=== PATIENT | male | born 1950 | race Caucasian/White ===

== ENCOUNTER 2019-06-08 19:23 | Emergency (ER) | payer MEDICARE, OTHER ==
[~2019-06-08] VITALS: Ht 170.1 cm; Wt 90.0 kg
--- NOTE | 2019-06-08 20:14 | ED General ---
General Chief Complaint: Neurological Problems Stated Complaint: GEN WEAKNESS Nursing Triage Note: PT. REPORTED HE HAS HAD WEAKNESS SINCE THIS AM. STATED HE WAS UNABLE TO WALK. PT. HAS HAD A CVA IN THE PAST. PT. HEART RATE WAS 46. BS WAS 119. PT WAS INCONTINENT OF URINE UPON ARRIVAL BY EMS. RUST PROTOCOL NEG. AT THIS TIME. PT LIVES ALONE AND IS VERY UNKEPT. HE HAD FECAL MATTER ON HIS HANDS. Nursing Sepsis Screen: No Definite Risk History of Present Illness Date Seen by Provider: Jun 08, 2019 Time Seen by Provider: 19:45 Initial Comments Patient is here with generalized weakness was even unable to get up to the bathroom today and urinated on himself called EMS to bring him in lives alone his '[facility] in the [facility] has had any problems over the last few days but today woke up and was profoundly weak no fever no chills no cough that is out of the normal he does relate that several months back he fell at [employer] and hit his head and never had a evaluation and wondered if that could be a problem. Denies any chest pain denies any nausea vomiting diarrhea or constipation. He does seem to have very poor hygiene and had stool on his hands. Timing/Duration: 24 Hours Severity: Mild Associated Systoms: No Chest Pain, No Cough; Malaise; No Nausea/Vomiting, No Shortness of Air; Weakness Allergies and Home Medications Allergies Coded Allergies: No Known Drug Allergies (Unverified , 06/08/19) Patient Home Medication List Home Medication List Reviewed: Yes Review of Systems Review of Systems Constitutional: No chills, No dizziness, No fever; weakness EENTM: No blurred vision, No vision loss Respiratory: No cough, No short of breath Cardiovascular: No chest pain, No palpitations Gastrointestinal: No abdominal pain, No nausea, No vomiting Genitourinary: No dysuria, No frequency Musculoskeletal: No joint swelling, No muscle pain; muscle weakness Skin: No lesions, No rash Psychiatric/Neurological: Denies Numbness, Denies Tingling; Weakness Past Cnpfcyt-Ozbrsa-Iberiq Hx Past Med/Social Hx: Reviewed Nursing Past Med/Soc Hx Patient Social History Recent Foreign Travel: No Contact w/Someone Who Travel: No Recent Infectious Disease Expo: No Recent Hopitalizations: No Physical Abuse: No Sexual Abuse: No Mistreated: No Fear: No Seasonal Allergies Seasonal Allergies: No Past Medical History Surgeries: Yes Amputation Respiratory: No Cardiac: No Neurological: Yes TIA Genitourinary: No Gastrointestinal: No Musculoskeletal: Yes (HX OF BACK PAIN) Amputee Endocrine: No HEENT: No Cancer: No Psychosocial: No Integumentary: No Blood Disorders: No Physical Exam Vital Signs Vital Signs - First Documented 06/08/19 19:34 Temp 35.7 Pulse 53 Resp 16 B/P (MAP) 183/78 (113) Pulse Ox 97 O2 Delivery Room Air Capillary Refill : Less Than 3 Seconds Height, Weight, BMI Height: '" Weight: lbs. oz. kg; 31.00 BMI Method: General Appearance: No Apparent Distress, WD/WN, Other (he does seem somewhat lethargic and falls asleep during the questioning. 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.) Neurologic/Psychiatric: Oriented x3; No Facial Droop; Motor Weakness; No Sensory Deficit; Other (somewhat lethargic.) Skin: Normal Color, Warm/Dry Progress/Results/Core Measures Suspected Sepsis Recent Fever Within 48 Hours: No Infection Criteria Present: None New/Unexplained Altered Menta: No Sepsis Screen: No Definite Risk SIRS Temperature: Pulse: 53 Respiratory Rate: 16 Laboratory Tests 06/08/19 21:02: White Blood Count 11.1H Blood Pressure 183 /78 Mean: 113 Laboratory Tests 06/08/19 21:02: Creatinine 0.76, Platelet Count 275, Total Bilirubin 0.5 Results/Orders Lab Results Laboratory Tests Test 06/08/19 21:02 06/08/19 21:46 Range/Units White Blood Count 11.1 H 4.3-11.0 10^3/uL Red Blood Count 4.91 4.35-5.85 10^6/uL Hemoglobin 14.8 13.3-17.7 G/DL Hematocrit 45 40-54 % Mean Corpuscular Volume 93 80-99 FL Mean Corpuscular Hemoglobin 30 25-34 PG Mean Corpuscular Hemoglobin Concent 33 32-36 G/DL Red Cell Distribution Width 13.2 10.0-14.5 % Platelet Count 275 130-400 10^3/uL Mean Platelet Volume 9.9 7.4-10.4 FL Neutrophils (%) (Auto) 91 H 42-75 % Lymphocytes (%) (Auto) 5 L 12-44 % Monocytes (%) (Auto) 4 0-12 % Eosinophils (%) (Auto) 0 0-10 % Basophils (%) (Auto) 0 0-10 % Neutrophils # (Auto) 10.1 H 1.8-7.8 X 10^3 Lymphocytes # (Auto) 0.5 L 1.0-4.0 X 10^3 Monocytes # (Auto) 0.4 0.0-1.0 X 10^3 Eosinophils # (Auto) 0.0 0.0-0.3 10^3/uL Basophils # (Auto) 0.0 0.0-0.1 10^3/uL Neutrophils % (Manual) 85 % Lymphocytes % (Manual) 9 % Monocytes % (Manual) 4 % Eosinophils % (Manual) 0 % Basophils % (Manual) 0 % Band Neutrophils 2 % Sodium Level 138 135-145 MMOL/L Potassium Level 4.5 3.6-5.0 MMOL/L Chloride Level 100 98-107 MMOL/L Carbon Dioxide Level 26 21-32 MMOL/L Anion Gap 12 5-14 MMOL/L Blood Urea Nitrogen 14 7-18 MG/DL Creatinine 0.76 0.60-1.30 MG/DL Estimat Glomerular Filtration Rate > 60 BUN/Creatinine Ratio 18 Glucose Level 116 H 70-105 MG/DL Calcium Level 9.5 8.5-10.1 MG/DL Corrected Calcium 9.7 8.5-10.1 MG/DL Total Bilirubin 0.5 0.1-1.0 MG/DL Aspartate Amino Transf (AST/SGOT) 12 5-34 U/L Alanine Aminotransferase (ALT/SGPT) 9 0-55 U/L Alkaline Phosphatase 49 40-136 U/L Troponin I < 0.30 <0.30 NG/ML Pro-B-Type Natriuretic Peptide 187.7 H <75.0 PG/ML Total Protein 7.0 6.4-8.2 GM/DL Albumin 3.8 3.2-4.5 GM/DL Urine Color YELLOW Urine Clarity CLEAR Urine pH 7.0 5-9 Urine Specific Bishop 1.015 L 1.016-1.022 Urine Protein NEGATIVE NEGATIVE Urine Glucose (UA) NEGATIVE NEGATIVE Urine Ketones NEGATIVE NEGATIVE Urine Nitrite NEGATIVE NEGATIVE Urine Bilirubin NEGATIVE NEGATIVE Urine Urobilinogen 0.2 < = 1.0 MG/DL Urine Leukocyte Esterase NEGATIVE NEGATIVE Urine RBC (Auto) TRACE H NEGATIVE Urine RBC 2-5 H /HPF Urine WBC 0-2 /HPF Urine Squamous Epithelial Cells NONE /HPF Urine Crystals NONE /LPF Urine Bacteria TRACE /HPF Urine Casts NONE /LPF Urine Mucus SMALL H /LPF Urine Culture Indicated NO My Orders Orders - PAULINA ABEL JR, MD Cbc With Automated Diff (06/08/19 20:07) Comprehensive Metabolic Panel (06/08/19 20:07) Urinalysis (06/08/19 20:07) Chest 1 View Ap/Pa Only (06/08/19 20:07) Ct Head Wo (06/08/19 20:07) Troponin I Fs (06/08/19 20:07) Ekg Tracing (06/08/19 20:07) Probnp Fs (06/08/19 20:07) Manual Differential (06/08/19 21:02) Clopidogrel Tablet (Plavix Tablet) (06/08/19 22:45) Aspirin Tablet (Aspirin Tablet) (06/08/19 22:45) Vital Signs/I&O 06/08/19 19:34 Temp 35.7 Pulse 53 Resp 16 B/P (MAP) 183/78 (113) Pulse Ox 97 O2 Delivery Room Air Capillary Refill : Less Than 3 Seconds Blood Pressure Mean: 113 Progress Note : Time: 22:[address] of the head showed right cerebellar stroke looks acute at this time we will cover with aspirin and Plavix transferred to [facility] in [place] to Dr. Squires as per discussion with him. ECG Initial ECG Impression Date: Jun 08, 2019 Initial ECG Impression Time: 20:18 Initial ECG Rate: 55 Initial ECG Rhythm: Normal Sinus Initial ECG Intervals: Normal Initial ECG Impression: Nonspecific Changes Departure Impression Primary Impression: Cerebellar stroke, acute Disposition: 02 XFER SHT-TRM HOSP Condition: Stable Transfer Transfer Reason: Exceeds level of care Time Spoke to Accepting Phy: 22:43 Transfer Progress Notes Discussed with Dr. Squires regarding transfer of the acute stroke outside of TPA window he accepts and will follow as per EMS transfer. Method of Transfer: EMS PAULINA ABEL JR, MD Jun 08, 2019 20:14
[2019-06-08 21:12] LABS: HEMATOCRIT 45 % (40-54); HEMOGLOBIN 14.8 G/DL (13.3-17.7); MEAN CORPUSCULAR HEMOGLOBIN 30 PG (25-34); WHITE BLOOD COUNT 11.1 10^3/uL (4.3-11.0)
[2019-06-08 21:13] LABS: BASOPHILS % (AUTO) 0 % (0-10); EOSINOPHILS % (AUTO) 0 % (0-10); LYMPHOCYTES # (AUTO) 0.5 X 10^3 (1.0-4.0); LYMPHOCYTES % (AUTO) 5 % (12-44); MEAN CORPUSCULAR HGB CONC 33 G/DL (32-36); MEAN CORPUSCULAR VOLUME 93 FL (80-99); MEAN PLATELET VOLUME 9.9 FL (7.4-10.4); MONOCYTES # (AUTO) 0.4 X 10^3 (0.0-1.0); MONOCYTES % (AUTO) 4 % (0-12); NEUTROPHILS # (AUTO) 10.1 X 10^3 (1.8-7.8); NEUTROPHILS % (AUTO) 91 % (42-75); PLATELET COUNT 275 10^3/uL (130-400); RED CELL DISTRIBUTION WIDTH 13.2 % (10.0-14.5)
--- NOTE | 2019-06-08 21:34 | NUR ---
PT SKIN IS MOTTLED.
--- NOTE | 2019-06-08 21:43 | Diagnostic Imaging Report ---
PROCEDURE: CT head without contrast. TECHNIQUE: Multiple contiguous axial images were obtained through the brain without the use of intravenous contrast. Auto Exposure Controls were utilized during the CT exam to meet ALARA standards for radiation dose reduction. INDICATION: Weakness. Past history of stroke. FINDINGS: There is low density demonstrated in the right occipital lobe that is compatible with probable remote infarct. There does, however, appear to be more intermediate low density involving the right superior cerebellum that is suspect for the possibility of a more acute superior cerebellar artery territory infarct. There are no findings of acute hemorrhage. There is no mass effect or shift. There is no hydrocephalus. The basilar cisterns appear patent. There is no abnormal extra-axial collection. The mastoid air cells appear clear. There is some moderate mucosal thickening in the left maxillary sinus and some mild mucosal thickening in the left sphenoid sinus. IMPRESSION: 1. Intermediate abnormal low density within the superior aspect of the right cerebellum is suspect for a possible small right superior cerebellar artery territory infarct. 2. Low-density in the right occipital region is compatible with a remote infarct 3. No findings of hemorrhage, mass effect or hydrocephalus. Findings called to the [facility] and discussed with Dr. Ocampo. Dictated by: Dictated on workstation # [id number]
--- NOTE | 2019-06-08 21:45 | Diagnostic Imaging Report ---
INDICATION: Weakness. No comparison available. FINDINGS: Lungs demonstrate no focal consolidation. There is some minimal atelectasis at the left base. There is no effusion or evidence of pneumothorax. Heart size appears appropriate. The central pulmonary vascularity appears appropriate. There is no pneumothorax. IMPRESSION: 1. No radiographic evidence of an acute cardiopulmonary process. Dictated by: Dictated on workstation # [id number]
[2019-06-08 21:47] LABS: ALANINE AMINOTRANSFERASE 9 U/L (0-55); ALKALINE PHOSPHATASE 49 U/L (40-136); BILIRUBIN,TOTAL 0.5 MG/DL (0.1-1.0); BUN/CREATININE RATIO 18; CALCIUM 9.5 MG/DL (8.5-10.1); CARBON DIOXIDE 26 MMOL/L (21-32); CHLORIDE 100 MMOL/L (98-107); CREATININE SERUM 0.76 MG/DL (0.60-1.30); GFR ESTIMATED > 60; GLUCOSE 116 MG/DL (70-105); POTASSIUM 4.5 MMOL/L (3.6-5.0); SODIUM 138 MMOL/L (135-145)
[2019-06-08 21:48] LABS: ALBUMIN 3.8 GM/DL (3.2-4.5)
[2019-06-08 21:57] LABS: CLARITY,URINE CLEAR; COLOR,URINE YELLOW; GLUCOSE, URINE (UA) NEGATIVE (NEGATIVE); PROTEIN,URINE NEGATIVE (NEGATIVE)
[2019-06-08 21:58] LABS: BACTERIA,URINE TRACE /HPF; BILIRUBIN,URINE NEGATIVE (NEGATIVE); KETONES,URINE NEGATIVE (NEGATIVE); LEUKOCYTE ESTERASE ,URINE NEGATIVE (NEGATIVE); NITRITE,URINE NEGATIVE (NEGATIVE); WBC,URINE 0-2 /HPF
[2019-06-08 22:04] LABS: BAND NEUTROPHILS 2 %; BASOPHILS % (MANUAL) 0 %; EOSINOPHILS % (MANUAL) 0 %; LYMPHOCYTES % (MANUAL) 9 %; MONOCYTES % (MANUAL) 4 %; NEUTROPHILS % (MANUAL) 85 %
[2019-06-08] MEDS ORDERED: CLOPIDOGREL 75 MG (PLAVIX) TABLET PO ONE (22:45)
[2019-06-08] MEDS ORDERED: ASPIRIN 325 MG (5 GR) TABLET PO ONE (22:45)
[2019-06-08 22:49] VITALS: BP 187/64
[2019-06-08] MEDS ORDERED: ONDANSETRON 4 MG (ZOFRAN) ORAL DISSOLVE TAB PO STA (23:04)
--- NOTE | 2019-06-08 23:09 | NUR ---
PT. BECAME NAUSEATED AND WAS GIVEN ZOFRAN ODT.
== END 2019-06-09 00:23 | disposition short-term general hospital (02) ==
LOC: ER FS 19:24
DX: I63.9 Cerebral infarction, unspecified (principal)
CPT/HCPCS: 36415; 51702; 70450; 71045; 80053; 81000; 83880; 84484; 85007; 85027

== ENCOUNTER 2020-07-02 20:12 | Emergency (ER) | payer MEDICARE ==
[~2020-07-02] VITALS: Ht 167.7 cm; Wt 90.7 kg
--- NOTE | 2020-07-02 20:21 | ED Lower Extremity ---
General Stated Complaint: SWELLING&SORES ON LT LEG History of Present Illness Date Seen by Provider: Jul 02, 2020 Time Seen by Provider: 20:16 Initial Comments 70-year-old male presents with chronic bilateral lower leg swelling. He has a prosthesis on his left leg. He has multiple wounds. He has been going on for a couple weeks. Bilateral lower legs are extremely swollen. Patient was brought in by EMS. Upon arrival patient states that he only wants us to clean up his legs that wrap them and to get antibiotic. Discussed with patient that the leg very bad and he would benefit from wound care and hospitalization. Patient reports that he is unwilling to be hospitalized at this time and does not want me to do any labs. We are attempting to get patient understand we can help him out financially if that is concerned. However at this time he still only wants us to wrap his legs and to give an antibiotic. Allergies and Home Medications Allergies Coded Allergies: No Known Drug Allergies (Unverified , 06/08/19) Home Medications Sulfamethoxazole/Trimethoprim 1 Each Tablet, 1 EACH PO BID Prescribed by: THOM CALDERON on 07/02/202115 Patient Home Medication List Home Medication List Reviewed: Yes Review of Systems Constitutional: No chills, No fever Respiratory: No cough, No short of breath Cardiovascular: No chest pain, No palpitations Gastrointestinal: No abdominal pain, No nausea, No vomiting Musculoskeletal: see HPI Skin: see HPI Past Lsdxrhz-Bmjnmm-Weftop Hx Past Med/Social Hx: Reviewed Nursing Past Med/Soc Hx Patient Social History Recent Hopitalizations: No Seasonal Allergies Seasonal Allergies: No Past Medical History Surgeries: Yes Amputation Respiratory: No Cardiac: No Neurological: Yes TIA Genitourinary: No Gastrointestinal: No Musculoskeletal: Yes (HX OF BACK PAIN) Amputee Endocrine: No HEENT: No Cancer: No Psychosocial: No Integumentary: No Blood Disorders: No Physical Exam Vital Signs Vital Signs - First Documented 07/02/20 20:12 Temp 37.0 Pulse 88 Resp 20 B/P (MAP) 175/77 (109) Pulse Ox 97 O2 Delivery Room Air Capillary Refill : Height, Weight, BMI Height: '" Weight: lbs. oz. kg; 31.00 BMI Method: General Appearance: no apparent distress Cardiovascular: normal peripheral pulses, regular rate, rhythm Respiratory: chest non-tender, lungs clear Feet: right foot other (Below ankle amputation with prosthetic) Neurologic/Psychiatric: alert, oriented x 3 Skin: other (Patient with significant cellulitis and wounds with maggots on posterior wounds on the left leg. Patient with a significant ulceration wound on the right leg below the prosthetic with full thickness ulceration.) Progress/Results/Core Measures Results/Orders My Orders Orders - THOM CALDERON DO Ceftriaxone For Im Use (Rocephin For Im (07/02/20 20:30) Lidocaine 1% Inj 20 Ml (Xylocaine 1% Inj (07/02/20 20:30) Sulfamethoxazole/Trimet Ds Tab (Bactrim (07/02/20 20:26) Mupirocin Ointment (Bactroban Ointment (07/02/20 21:10) Mupirocin Ointment (Bactroban Ointment (07/02/20 21:21) Bacitracin Ointment (Bacitracin Ointment (07/02/20 21:36) Medications Given in ED Current Medications Medications Dose Ordered Sig/Grant Route Start Time Stop Time Status Last Admin Dose Admin Ceftriaxone Sodium 1,000 mg ONCE ONCE IM 07/02/20 20:30 07/02/20 20:31 DC 07/02/20 22:37 1,000 MG Lidocaine HCl 2.1 ml ONCE ONCE INJ 07/02/20 20:30 07/02/20 20:31 DC 07/02/20 22:37 2.1 ML Vital Signs/I&O 07/02/20 07/02/20 20:12 23:20 Temp 37.0 37.0 Pulse 88 93 Resp 20 20 B/P (MAP) 175/77 (109) 124/73 Pulse Ox 97 93 O2 Delivery Room Air Room Air Progress Progress Note : Progress Note I asked patient to be admitted for wound care and antibiotic treatment throughout his stay in the ER. Patient repeatedly refused. Patient states he only wanted his wounds cleaned wrapped and to be discharged home with antibiotic. We discussed with patient that if he is concerned about finances that [employer] offers financial assistance. Nurse also repeatedly try to convince him to stay along with me and he repeatedly declined. I do have concerns with eventually poor outcome based on the significant ones. He would be given a Rocephin shot since he does not want IV. I will discharge him with Bactrim. We are calling to try to make an appointment with [facility]. Patient will be discharged as he is requested. Departure Impression Primary Impression: Infected pressure ulcer Qualified Codes: L89.90 - Pressure ulcer of unspecified site, unspecified stage; L08.9 - Local infection of the skin and subcutaneous tissue, unspecified Additional Impressions: Infected stasis ulcer Qualified Codes: I83.229 - Varicose veins of left lower extremity with both ulcer of unspecified site and inflammation; L97.929 - Non-pressure chronic ulcer of unspecified part of left lower leg with unspecified severity Stasis edema with ulcer of both lower extremities Disposition: HOME, SELF-CARE Condition: Improved Departure-Patient Inst. Referrals: NO,LOCAL PHYSICIAN (PCP/Family) Primary Care Physician Patient Instructions: Pressure Sores, How to Prevent Pressure Sores, Wound Infection Add. Discharge Instructions: Please follow-up with [facility] in the next 1 to 2 days for recheck. They can help arrange for outpatient wound care and dressing changes. Scripts Sulfamethoxazole/Trimethoprim (Bactrim Ds Tablet) 1 Each Tablet 1 EACH PO BID, #20 TAB Prov: THOM CALDERON DO 07/02/20 THOM CALDERON DO Jul 02, 2020 20:21
[2020-07-02] MEDS ORDERED: TRIM/SULFAMETH 160/800 (SEPTRA DS) TAB PO STA (20:26)
[2020-07-02] MEDS ORDERED: LIDOCAINE 1% INJ 20 ML 20 ML VIAL INJ ONE (20:30)
[2020-07-02] MEDS ORDERED: cefTRIAXone 1,000 MG/2.86 ml vial (IM ONLY) IM ONE (20:30)
[2020-07-02] MEDS ORDERED: MUPIROCIN 2% OINT 22 GM (BACTROBAN) TUBE ONE ×2 (21:10→21:21)
[2020-07-02] MEDS ORDERED: SULF1TAB35 PO (21:16)
[2020-07-02] MEDS ORDERED: BACITRACIN OINTMENT 28 GM TUBE ONE (21:36)
[2020-07-02 23:20] VITALS: BP 124/73
== END 2020-07-02 23:20 | disposition home or self-care (01) ==
LOC: EDUNIT# 20:12 → ER FS 20:13
DX: L89.899 Pressure ulcer of other site, unspecified stage (principal); L08.9 Local infection of the skin and subcutaneous tissue, unspecified; I83.018 Varicose veins of right lower extremity with ulcer other part of lower leg; I83.028 Varicose veins of left lower extremity with ulcer other part of lower leg; L97.829 Non-pressure chronic ulcer of other part of left lower leg with unspecified severity; Z97.14 Presence of artificial left leg (complete) (partial)
CPT/HCPCS: 96372

== ENCOUNTER → 2020-08-07 | Outpatient (CLI) | payer MEDICARE ==
[~2020-08-07] MED LIST: SULF1TAB35 PO
== END ==
LOC: LAB FS 12:26
PROVIDERS: ATTEND Nurse Practitioner Family
DX: I70.238 Atherosclerosis of native arteries of right leg with ulceration of other part of lower leg (principal)
CPT/HCPCS: 87070; 87077; 87205

== ENCOUNTER → 2020-12-18 | Outpatient (CLI) | payer MEDICARE ==
[~2020-12-18] MED LIST changes: -SULF1TAB35 PO; +SULF1TAB38 PO
== END ==
LOC: WOUNDCARE 09:05
PROVIDERS: ATTEND Surgery
DX: I87.333 Chronic venous hypertension (idiopathic) with ulcer and inflammation of bilateral lower extremity (principal); I89.0 Lymphedema, not elsewhere classified; L97.212 Non-pressure chronic ulcer of right calf with fat layer exposed; L97.222 Non-pressure chronic ulcer of left calf with fat layer exposed; I70.232 Atherosclerosis of native arteries of right leg with ulceration of calf; T65.222A Toxic effect of tobacco cigarettes, intentional self-harm, initial encounter; E66.01 Morbid (severe) obesity due to excess calories; J44.9 Chronic obstructive pulmonary disease, unspecified; F17.218 Nicotine dependence, cigarettes, with other nicotine-induced disorders
CPT/HCPCS: A6197; A6253; G0463; 99215

== ENCOUNTER → 2020-12-26 | Outpatient (CLI) | payer MEDICARE ==
--- NOTE | 2020-12-26 18:28 | Diagnostic Imaging Report ---
INDICATION: Chronic venous hypertension. FINDINGS: Ankle-brachial indices on the right is 0.65 and on the left 1.1. IMPRESSION: 1. Abnormal ankle brachial indices on the right of 0.65 compatible with at least moderate peripheral vascular disease. Recommend clinical correlation. 2. Normal ankle-brachial indices on the left. Dictated by: Dictated on workstation # [id number]
== END ==
LOC: RAD 08:49
PROVIDERS: ATTEND Surgery
DX: I87.333 Chronic venous hypertension (idiopathic) with ulcer and inflammation of bilateral lower extremity (principal)
CPT/HCPCS: 93923

== ENCOUNTER → 2020-12-26 | Outpatient (CLI) | payer MEDICARE | LOC: WOUNDCARE 10:01 | PROVIDERS: ATTEND Surgery | DX: I70.232 Atherosclerosis of native arteries of right leg with ulceration of calf (principal); I87.333 Chronic venous hypertension (idiopathic) with ulcer and inflammation of bilateral lower extremity; I89.0 Lymphedema, not elsewhere classified; L97.212 Non-pressure chronic ulcer of right calf with fat layer exposed; L97.222 Non-pressure chronic ulcer of left calf with fat layer exposed; T65.222A Toxic effect of tobacco cigarettes, intentional self-harm, initial encounter; E66.01 Morbid (severe) obesity due to excess calories; J44.9 Chronic obstructive pulmonary disease, unspecified; I96 Gangrene, not elsewhere classified; F17.218 Nicotine dependence, cigarettes, with other nicotine-induced disorders | CPT/HCPCS: A6197; A6253; G0463; 99214 ==

== ENCOUNTER → 2021-01-02 | Outpatient (CLI) | payer MEDICARE | LOC: WOUNDCARE 10:08 | PROVIDERS: ATTEND Surgery | DX: I70.232 Atherosclerosis of native arteries of right leg with ulceration of calf (principal); I96 Gangrene, not elsewhere classified; I87.333 Chronic venous hypertension (idiopathic) with ulcer and inflammation of bilateral lower extremity; I89.0 Lymphedema, not elsewhere classified; J44.9 Chronic obstructive pulmonary disease, unspecified; L97.212 Non-pressure chronic ulcer of right calf with fat layer exposed; L97.222 Non-pressure chronic ulcer of left calf with fat layer exposed; T65.222A Toxic effect of tobacco cigarettes, intentional self-harm, initial encounter; F17.218 Nicotine dependence, cigarettes, with other nicotine-induced disorders; E66.01 Morbid (severe) obesity due to excess calories; Z68.41 Body mass index [BMI] 40.0-44.9, adult | CPT/HCPCS: A6197; A6253; G0463; 99213 ==

== ENCOUNTER → 2021-01-09 | Outpatient (CLI) | payer MEDICARE | LOC: WOUNDCARE 10:05 | PROVIDERS: ATTEND Family Medicine | DX: I70.232 Atherosclerosis of native arteries of right leg with ulceration of calf (principal); I87.333 Chronic venous hypertension (idiopathic) with ulcer and inflammation of bilateral lower extremity; I89.0 Lymphedema, not elsewhere classified; L97.212 Non-pressure chronic ulcer of right calf with fat layer exposed; L97.222 Non-pressure chronic ulcer of left calf with fat layer exposed; T65.222A Toxic effect of tobacco cigarettes, intentional self-harm, initial encounter; E66.01 Morbid (severe) obesity due to excess calories; J44.9 Chronic obstructive pulmonary disease, unspecified; I96 Gangrene, not elsewhere classified; F17.218 Nicotine dependence, cigarettes, with other nicotine-induced disorders | CPT/HCPCS: 99213 ==

== ENCOUNTER → 2021-01-16 | Outpatient (CLI) | payer MEDICARE | LOC: WOUNDCARE 09:56 | PROVIDERS: ATTEND Family Medicine | DX: I87.333 Chronic venous hypertension (idiopathic) with ulcer and inflammation of bilateral lower extremity (principal); I89.0 Lymphedema, not elsewhere classified; T65.222A Toxic effect of tobacco cigarettes, intentional self-harm, initial encounter; E66.01 Morbid (severe) obesity due to excess calories; J44.9 Chronic obstructive pulmonary disease, unspecified; I70.232 Atherosclerosis of native arteries of right leg with ulceration of calf; L97.212 Non-pressure chronic ulcer of right calf with fat layer exposed; I96 Gangrene, not elsewhere classified; F17.218 Nicotine dependence, cigarettes, with other nicotine-induced disorders | CPT/HCPCS: 97597; G0463 ==

== ENCOUNTER → 2021-02-09 | Outpatient (CLI) | payer MEDICARE | LOC: WOUNDCARE 13:06 | PROVIDERS: ATTEND Family Medicine | DX: I70.232 Atherosclerosis of native arteries of right leg with ulceration of calf (principal); I87.333 Chronic venous hypertension (idiopathic) with ulcer and inflammation of bilateral lower extremity; I89.0 Lymphedema, not elsewhere classified; L97.212 Non-pressure chronic ulcer of right calf with fat layer exposed; T65.222A Toxic effect of tobacco cigarettes, intentional self-harm, initial encounter; E66.01 Morbid (severe) obesity due to excess calories; J44.9 Chronic obstructive pulmonary disease, unspecified; B37.2 Candidiasis of skin and nail; I96 Gangrene, not elsewhere classified; F17.210 Nicotine dependence, cigarettes, uncomplicated | CPT/HCPCS: A6197; G0463; 99212 ==

== ENCOUNTER → 2021-02-19 | Outpatient (CLI) | payer MEDICARE | LOC: WOUNDCARE 10:47 | PROVIDERS: ATTEND Family Medicine | DX: I70.232 Atherosclerosis of native arteries of right leg with ulceration of calf (principal); I87.333 Chronic venous hypertension (idiopathic) with ulcer and inflammation of bilateral lower extremity; I89.0 Lymphedema, not elsewhere classified; L97.212 Non-pressure chronic ulcer of right calf with fat layer exposed; T65.222A Toxic effect of tobacco cigarettes, intentional self-harm, initial encounter; E66.01 Morbid (severe) obesity due to excess calories; J44.9 Chronic obstructive pulmonary disease, unspecified; B37.2 Candidiasis of skin and nail; L03.115 Cellulitis of right lower limb; I96 Gangrene, not elsewhere classified | CPT/HCPCS: 97597; G0463 ==

== ENCOUNTER → 2021-03-05 | Outpatient (CLI) | payer MEDICARE | LOC: WOUNDCARE 15:07 | PROVIDERS: ATTEND Family Medicine | DX: I70.232 Atherosclerosis of native arteries of right leg with ulceration of calf (principal); I87.333 Chronic venous hypertension (idiopathic) with ulcer and inflammation of bilateral lower extremity; I89.0 Lymphedema, not elsewhere classified; L97.212 Non-pressure chronic ulcer of right calf with fat layer exposed; E66.01 Morbid (severe) obesity due to excess calories; J44.9 Chronic obstructive pulmonary disease, unspecified; B37.2 Candidiasis of skin and nail; L03.115 Cellulitis of right lower limb; T65.222A Toxic effect of tobacco cigarettes, intentional self-harm, initial encounter; Z68.41 Body mass index [BMI] 40.0-44.9, adult | CPT/HCPCS: 11042; G0463 ==

== ENCOUNTER → 2021-03-24 | Outpatient (CLI) | payer MEDICARE | LOC: WOUNDCARE 14:38 | PROVIDERS: ATTEND Family Medicine | DX: I70.232 Atherosclerosis of native arteries of right leg with ulceration of calf (principal); I87.333 Chronic venous hypertension (idiopathic) with ulcer and inflammation of bilateral lower extremity; I89.0 Lymphedema, not elsewhere classified; L97.212 Non-pressure chronic ulcer of right calf with fat layer exposed; T65.222A Toxic effect of tobacco cigarettes, intentional self-harm, initial encounter; E66.01 Morbid (severe) obesity due to excess calories; J44.9 Chronic obstructive pulmonary disease, unspecified; I96 Gangrene, not elsewhere classified; Z68.42 Body mass index [BMI] 45.0-49.9, adult | CPT/HCPCS: 11042; 11045; G0463 ==

== ENCOUNTER → 2021-04-07 | Outpatient (CLI) | payer MEDICARE | LOC: WOUNDCARE 14:44 | PROVIDERS: ATTEND Family Medicine | DX: I70.232 Atherosclerosis of native arteries of right leg with ulceration of calf (principal); L97.212 Non-pressure chronic ulcer of right calf with fat layer exposed; I87.333 Chronic venous hypertension (idiopathic) with ulcer and inflammation of bilateral lower extremity; I89.0 Lymphedema, not elsewhere classified; T65.222A Toxic effect of tobacco cigarettes, intentional self-harm, initial encounter; E66.01 Morbid (severe) obesity due to excess calories; J44.9 Chronic obstructive pulmonary disease, unspecified; I96 Gangrene, not elsewhere classified; Z68.42 Body mass index [BMI] 45.0-49.9, adult | CPT/HCPCS: 11042; G0463 ==

== ENCOUNTER → 2021-04-28 | Outpatient (CLI) | payer MEDICARE | LOC: WOUNDCARE 14:36 | PROVIDERS: ATTEND Family Medicine | DX: I70.232 Atherosclerosis of native arteries of right leg with ulceration of calf (principal); I96 Gangrene, not elsewhere classified; I87.333 Chronic venous hypertension (idiopathic) with ulcer and inflammation of bilateral lower extremity; I89.0 Lymphedema, not elsewhere classified; L97.212 Non-pressure chronic ulcer of right calf with fat layer exposed; T65.222A Toxic effect of tobacco cigarettes, intentional self-harm, initial encounter; E66.01 Morbid (severe) obesity due to excess calories; J44.9 Chronic obstructive pulmonary disease, unspecified; Z68.42 Body mass index [BMI] 45.0-49.9, adult | CPT/HCPCS: 99212 ==

== ENCOUNTER → 2021-05-21 | Outpatient (CLI) | payer MEDICARE | LOC: WOUNDCARE 14:34 | PROVIDERS: ATTEND Family Medicine | DX: I70.232 Atherosclerosis of native arteries of right leg with ulceration of calf (principal); I87.333 Chronic venous hypertension (idiopathic) with ulcer and inflammation of bilateral lower extremity; I89.0 Lymphedema, not elsewhere classified; L97.212 Non-pressure chronic ulcer of right calf with fat layer exposed; T65.222A Toxic effect of tobacco cigarettes, intentional self-harm, initial encounter; E66.01 Morbid (severe) obesity due to excess calories; J44.9 Chronic obstructive pulmonary disease, unspecified; I96 Gangrene, not elsewhere classified | CPT/HCPCS: 99212 ==

== ENCOUNTER 2022-01-19 16:43 | Emergency (ER) | payer MEDICARE ==
[~2022-01-19] VITALS: Ht 170.2 cm; Wt 90.7 kg
[2022-01-19 16:47] VITALS: BP 167/70
--- NOTE | 2022-01-19 16:47 | ED Lower Extremity ---
General Chief Complaint: Lower Extremity Stated Complaint: L LEG SWELLING/SORES History of Present Illness Date Seen by Provider: Jan 19, 2022 Time Seen by Provider: 16:47 Initial Comments 71-year-old male with PMH of peripheral vascular disease, right foot amputation, CAD, is sent here from the clinic with complaints of left lower leg infected wound, swelling, which is oozing pus. Patient states that this wound started many months ago and has only worsened. Denies diabetes, fever, lethargy.. Allergies and Home Medications Allergies Coded Allergies: No Known Drug Allergies (Unverified , 06/08/19) Patient Home Medication List Home Medication List Reviewed: Yes Sulfamethoxazole/Trimethoprim (Bactrim Ds Tablet) 1 Each Tablet, 1 EACH PO BID Prescribed by: THOM CALDERON on 07/02/202115 Review of Systems Constitutional: no symptoms reported EENTM: no symptoms reported Respiratory: no symptoms reported Cardiovascular: no symptoms reported Gastrointestinal: no symptoms reported Genitourinary: no symptoms reported Musculoskeletal: joint pain, joint swelling Skin: lesions Psychiatric/Neurological: No Symptoms Reported Past Dxqhcym-Meeheb-Zxaokh Hx Seasonal Allergies Seasonal Allergies: No Past Medical History Surgeries: Yes Amputation, Vasectomy Respiratory: No Cardiac: Yes Coronary Artery Disease Neurological: Yes Stroke Genitourinary: No Gastrointestinal: No Musculoskeletal: Yes Amputee Endocrine: No HEENT: No Cancer: No Psychosocial: No Integumentary: No Blood Disorders: No Physical Exam Vital Signs Capillary Refill : Height, Weight, BMI Height: '" Weight: lbs. oz. kg; 32.00 BMI Method: General Appearance: WD/WN, no apparent distress HEENT: PERRL/EOMI Neck: full range of motion Cardiovascular: regular rate, rhythm Respiratory: lungs clear Legs: left leg normal range of motion, left leg pain, left leg soft tissue tenderness, left leg swelling (Ulcerated wound extending from the ankle posteriorly to the popliteal fossa and encompasses the entire width of the calf with pus, erythema, inflammation and pitting edema extending up to the knee. Hot to touch, poor hygiene.) Neurologic/Psychiatric: alert, oriented x 3 Progress/Results/Core Measures Results/Orders Lab Results Laboratory Tests Test 01/19/22 17:40 Range/Units My Orders Orders - URMILA STOUT MD Cbc With Automated Diff (01/19/22 17:05) Comprehensive Metabolic Panel (01/19/22 17:05) Magnesium (01/19/22 17:05) Ua Culture If Indicated (01/19/22 17:05) Blood Culture (01/19/22 17:05) Probnp Fs (01/19/22 17:05) Crp Fs (01/19/22 17:05) Lactic Acid Analyzer (01/19/22 17:05) Tibia Fibula 2 View Left (01/19/22 17:18) Fibrin Degradation Products (01/19/22 17:19) Protime With Inr (01/19/22 17:19) Partial Thromboplastin Time (01/19/22 17:19) Progress Progress Note : Progress Note Patient left AMA after risks and benefits were explained in detail to him, and explaining that he will need admission for iv antibiotics. 1. LEFT LOWER LEG CELLULITIS - Pt will need rule out for osteomyelitis - CBC/ CMP - Blood cultures sent - Lactic acid - BNP - CRP Diagnostic Imaging Diagonstic Imaging: Ultrasound Plain Films/CT/US/NM/MRI: abdomen, pelvis Comments [facility]. [place], [place] NAME: [facility] REC#: [id number] PT STATUS: REG ER : 11/30/2002 PHYSICIAN: URMILA STOUT MD ADMIT DATE: 01/19/22/ER FS Draft Date of Exam:01/19/22 US OB PREG [id number] INDICATION: Hematemesis. TECHNIQUE: Multiple real-time grayscale images were obtained over the gravid uterus. COMPARISON: None. FINDINGS: There is a single live fetus in a cephalic presentation. heart rate was recorded at 125 BPM. Placenta is posterior. No previa is seen. Amniotic fluid index is 16.7 cm. No complicating features are seen. Biometrical measurements are as follows: Biparietal 7.95 cm, age 32 weeks 0 days. Head circumference 29.10 cm, age 32 weeks 1 days. Abdominal circumference 27.27 cm, age 31 weeks 3 days. Femur length 5.78 cm, age 30 weeks 2 days. Sonographic estimate age: 31 weeks 4 days. Sonographic estimated date of delivery: 03/19/2022. Estimated Weight: 1705 gm (+/- 249 gm). LMP percentile: 33%. heart rate: 125 beats per minute. number: 1 of 1. IMPRESSION: Single live IUP at 31 to 32 weeks gestational age with estimated date of confinement sonographically of 03/19/2022. No complicating features are detected. Dictated on workstation # [id number] Dict: 01/19/22 1614 Trans: 01/19/22 1620 [id number] [id number] Interpreted by: CHRISTIANO PENN MD Electronically signed by: Departure Impression Primary Impression: Left leg cellulitis Disposition: AGAINST MEDICAL ADVICE Condition: Against Medical Advice Departure-Patient Inst. Referrals: LEONILA CANCINO APRN (PCP/Family) Primary Care Physician URMILA STOUT MD Jan 19, 2022 16:47
--- NOTE | 2022-01-19 17:46 | Diagnostic Imaging Report ---
Indication: Osteomyelitis. Time of Exam: 5:33 PM AP and lateral views of the left tibia and fibula were obtained. No definite bony destructive changes are seen. There may be some soft tissue swelling but no definite soft tissue gas is identified. There is no fracture. Impression: Soft tissue swelling. No acute bony abnormality is detected. Dictated by: Dictated on workstation # [id number]
[2022-01-19 17:56] LABS: BASOPHILS # (AUTO) 0.1 10^3/uL (0.0-0.1); BASOPHILS % (AUTO) 1 % (0-10); EOSINOPHILS # (AUTO) 0.3 10^3/uL (0.0-0.3); EOSINOPHILS % (AUTO) 5 % (0-10); HEMATOCRIT 43 % (40-54); LYMPHOCYTES # (AUTO) 1.1 10^3/uL (1.0-4.0); LYMPHOCYTES % (AUTO) 15 % (12-44); MEAN CORPUSCULAR HEMOGLOBIN 29 pg (25-34); MEAN CORPUSCULAR HGB CONC 33 g/dL (32-36); MEAN CORPUSCULAR VOLUME 87 fL (80-99); MEAN PLATELET VOLUME 9.8 fL (9.0-12.2); MONOCYTES # (AUTO) 0.8 10^3/uL (0.0-1.0); MONOCYTES % (AUTO) 12 % (0-12); NEUTROPHILS # (AUTO) 4.7 10^3/uL (1.8-7.8); NEUTROPHILS % (AUTO) 67 % (42-75); PLATELET COUNT 510 10^3/uL (130-400)
[2022-01-19 18:22] LABS: FIBRIN DEGRADATION PRODUCTS 1.38 UG/ML (0.00-0.49); INR 0.9 (0.8-1.4); PROTHROMBIN TIME PATIENT 12.6 SEC (12.2-14.7)
[2022-01-19 18:24] LABS: BILIRUBIN,TOTAL 0.3 MG/DL (0.1-1.0); CALCIUM 9.4 MG/DL (8.5-10.1); CREATININE SERUM 0.83 MG/DL (0.60-1.30); MAGNESIUM 2.2 MG/DL (1.6-2.4); POTASSIUM 4.8 MMOL/L (3.6-5.0)
[2022-01-19 18:25] LABS: ALBUMIN 3.6 GM/DL (3.2-4.5); TOTAL PROTEIN 7.8 GM/DL (6.4-8.2)
== END 2022-01-19 17:51 | disposition left against medical advice (07) ==
LOC: EDUNIT# 16:43 → ER FS 16:44
DX: L03.116 Cellulitis of left lower limb (principal)
CPT/HCPCS: 36415; 73590; 80053; 83605; 83735; 83880; 85025; 85379; 85610; 85730; 86141; 87040

== ENCOUNTER 2022-01-23 18:05 | Inpatient (IN) | payer MEDICARE ==
[~2022-01-23] VITALS: Ht 167.7 cm; Wt 107.0 kg
[2022-01-23] MEDS ORDERED: PIPERACILLIN SODIUM/TAZOBACTAM 4.5 GM in NS (IVPB) 100 ML IV ONE (18:45)
[2022-01-23] MEDS ORDERED: VANCOMYCIN INJECTION 1,000 MG in NS (IVPB) 250 ML IV ONE ×4 (18:45)
--- NOTE | 2022-01-23 18:52 | ED Lower Extremity ---
General Chief Complaint: Skin/Wound Problems Stated Complaint: DRESSING CHANGE Nursing Triage Note: HERE TODAY BECAUSE HE WAS TOLD HE NEEDED ANTIBIOTIC TREATMENT FOR HIS LOWER LEG PAIN AND WOUND THAT HAS MAGGOTS IN THE LEFT LOWER LEG. STATES THE WOUND HAS BEEN THERE FOR ABOUT A MONTH. (FLIP SMALL APRN) History of Present Illness Date Seen by Provider: Jan 23, 2022 Time Seen by Provider: 18:40 Initial Comments Patient is a 71-year-old male who presents to the emergency department for evaluation of worsening chronic wound to the posterior aspect of his left leg. Patient was seen in the [facility] emergency department on 01/19 where was recommended he be admitted for antibiotics. He left AMA at that time. Patient states he also recently went to his wound care clinic who also recommended he be admitted for antibiotics but he again refused. He presents today amenable to admission for IV antibiotics. He states the area is somewhat painful. He denies any other complaints at this time. States he has full sensation and movement in his left foot. He initially states he has not been told he has any problems with blood flow in the affected leg but then later states he does have a history of " vein problems" in that leg. He states the wound has been there for approximately 1 month but review of his EMR shows he has been seeing wound care for a wound in his left leg for several months. Patient denies any fever. He states he has not changed the dressing in several days. Onset: just prior to arrival Pain/Injury Location: left leg (FLIP SMALL APRN) Allergies and Home Medications Allergies Coded Allergies: No Known Drug Allergies (Unverified , 06/08/19) Patient Home Medication List Home Medication List Reviewed: Yes (FLIP SMALL APRN) Sulfamethoxazole/Trimethoprim (Bactrim Ds Tablet) 1 Each Tablet, 1 EACH PO BID Prescribed by: THOM CALDERON on 07/02/202115 Review of Systems Constitutional: no symptoms reported, see HPI EENTM: no symptoms reported Respiratory: no symptoms reported Cardiovascular: no symptoms reported Gastrointestinal: no symptoms reported Musculoskeletal: see HPI Skin: see HPI (FLIP SMALL APRN) Past Xlrysfh-Sspzud-Rhzprc Hx Patient Social History Tobacco Use?: No Use of E-Cig and/or Vaping dev: No Substance use?: No Alcohol Use?: No Pt feels they are or have been: No (FLIP SMALL APRN) Immunizations Up To Date Influenza Vaccine Up-to-Date: No; Not Current First/Initial COVID19 Vaccinat: 2020 Second COVID19 Vaccination Lior: 2020 Third COVID19 Vaccination Date: 2020 (FLIP SMALL APRN) Seasonal Allergies Seasonal Allergies: No (FLIP SMALL APRN) Past Medical History Surgery/Hospitalization HX: RIGHT FOOT AMPUTATION, CHRONIC LEFT LEG WOUND BACK PAIN, CHRONIC SWELLING, Surgeries: Yes Amputation, Vasectomy Respiratory: No Cardiac: Yes Coronary Artery Disease Neurological: Yes Stroke Genitourinary: No Gastrointestinal: No Musculoskeletal: Yes Amputee Endocrine: No HEENT: No Cancer: No Psychosocial: No Integumentary: No Blood Disorders: No (FLIP SMALL APRN) Physical Exam Vital Signs Vital Signs - First Documented 01/23/22 18:34 Temp 37.1 Pulse 96 Resp 18 B/P (MAP) 151/98 (115) Pulse Ox 98 (JEMIMA,GATITO K DO) Vital Signs Capillary Refill : Less Than 3 Seconds (FLIP SMALL APRN) Height, Weight, BMI Height: '" Weight: lbs. oz. kg; 32.00 BMI Method: General Appearance: WD/WN, no apparent distress HEENT: PERRL/EOMI, normal ENT inspection, TMs normal, pharynx normal Neck: non-tender, full range of motion, supple, normal inspection Cardiovascular: regular rate, rhythm Respiratory: chest non-tender, lungs clear, normal breath sounds, no respiratory distress, no accessory muscle use Gastrointestinal: normal bowel sounds, non tender Back: normal inspection, no vertebral tenderness Legs: left leg pain, left leg soft tissue tenderness, left leg swelling Ankles: left ankle swelling Feet: left foot swelling Neurologic/Psychiatric: summer sessions director II-XII nml as tested, no motor/sensory deficits, alert, normal mood/affect, oriented x 3 Skin: normal color, warm/dry Open ulcerated lesion noted to the posterior aspect of the left lower leg measuring approximately 3 cm in diameter; significant macerated skin and cellulitic changes noted to the posterior left lower leg from the ankle to the popliteal fossa; serous, foul-smelling drainage noted from wounds; maggots noted to the open ulcerated lesion; the left lower leg is markedly more edematous than the right lower leg (FLIP SMALL APRN) Progress/Results/Core Measures Results/Orders Lab Results Laboratory Tests Test 01/23/22 18:40 Range/Units White Blood Count 8.1 4.3-11.0 10^3/uL Red Blood Count 4.71 4.30-5.52 10^6/uL Hemoglobin 13.6 13.3-17.7 g/dL Hematocrit 42 40-54 % Mean Corpuscular Volume 89 80-99 fL Mean Corpuscular Hemoglobin 29 25-34 pg Mean Corpuscular Hemoglobin Concent 33 32-36 g/dL Red Cell Distribution Width 13.2 10.0-14.5 % Platelet Count 524 H 130-400 10^3/uL Mean Platelet Volume 9.7 9.0-12.2 fL Immature Granulocyte % (Auto) 1 % Neutrophils (%) (Auto) 73 42-75 % Lymphocytes (%) (Auto) 13 12-44 % Monocytes (%) (Auto) 9 0-12 % Eosinophils (%) (Auto) 3 0-10 % Basophils (%) (Auto) 1 0-10 % Neutrophils # (Auto) 5.9 1.8-7.8 10^3/uL Lymphocytes # (Auto) 1.0 1.0-4.0 10^3/uL Monocytes # (Auto) 0.8 0.0-1.0 10^3/uL Eosinophils # (Auto) 0.2 0.0-0.3 10^3/uL Basophils # (Auto) 0.1 0.0-0.1 10^3/uL Immature Granulocyte # (Auto) 0.1 0.0-0.1 10^3/uL Prothrombin Time 12.9 12.2-14.7 SEC INR Comment 0.9 0.8-1.4 Activated Partial Thromboplast Time 29 24-35 SEC Sodium Level 133 L 135-145 MMOL/L Potassium Level 4.1 3.6-5.0 MMOL/L Chloride Level 99 98-107 MMOL/L Carbon Dioxide Level 22 21-32 MMOL/L Anion Gap 12 5-14 MMOL/L Blood Urea Nitrogen 12 7-18 MG/DL Creatinine 0.86 0.60-1.30 MG/DL Estimat Glomerular Filtration Rate 93 BUN/Creatinine Ratio 14 Glucose Level 110 H 70-105 MG/DL Lactic Acid Level 1.90 0.50-2.00 MMOL/L Calcium Level 9.5 8.5-10.1 MG/DL Corrected Calcium 9.8 8.5-10.1 MG/DL Total Bilirubin 0.2 0.1-1.0 MG/DL Aspartate Amino Transf (AST/SGOT) 15 5-34 U/L Alanine Aminotransferase (ALT/SGPT) 16 0-55 U/L Alkaline Phosphatase 65 40-136 U/L Total Protein 7.5 6.4-8.2 GM/DL Albumin 3.6 3.2-4.5 GM/DL (GATITO ONOFRE DO) Vital Signs/I&O 01/23/22 18:34 Temp 37.1 Pulse 96 Resp 18 B/P (MAP) 151/98 (115) Pulse Ox 98 (GATITO ONOFRE DO) Blood Pressure Mean: 115 Progress Progress Note : Progress Note Patient is nontoxic and well-hydrated on exam. Vital signs are reassuring. The wound is concerning for cellulitis and possible deep structure involvement of infection. Vital signs are overall reassuring. Lactic acid is within normal limits. Both blood and wound cultures were obtained. Patient was given vancomycin and Zosyn. Patient will be admitted for further IV antibiotics and wound care. I spoke with the admitting physician who kindly agreed to admit the patient. Patient updated on plan of care and understanding verbalized. (FLIP SMALL APRN) Departure Communication (Admissions) Time/Spoke to Admitting Phy: 19:40 agrees to admit; requests Tylenol PRN pain and q8hr Zosyn (FLIP SMALL APRN) Impression Primary Impression: Left leg cellulitis Additional Impression: Infected stasis ulcer Qualified Codes: I83.229 - Varicose veins of left lower extremity with both ulcer of unspecified site and inflammation; L97.929 - Non-pressure chronic ulcer of unspecified part of left lower leg with unspecified severity Disposition: 01 HOME, SELF-CARE Condition: Stable Admissions Decision to Admit Reason: Admit from ER (General) Decision to Admit/Date: Jan 23, 2022 Time/Decision to Admit Time: 19:40 (FLIP SMALL APRN) Departure-Patient Inst. Referrals: LEONILA CANCINO APRN (PCP/Family) Primary Care Physician ATTENDING PHYSICIAN NOTE: I WAS PHYSICALLY PRESENT ER PHYSICIAN, BUT I WAS NOT INVOLVED IN ANY DECISION MAKING OR ANY CARE OF THIS PATIENT, AND I AM NOT COLLABORATING PHYSICIAN. (GATITO ONOFRE DO) FLIP SMALL APRN Jan 23, 2022 18:52 GATITO ONOFRE DO Jan 24, 2022 10:50
[2022-01-23 18:59] LABS: BASOPHILS # (AUTO) 0.1 10^3/uL (0.0-0.1); BASOPHILS % (AUTO) 1 % (0-10); EOSINOPHILS # (AUTO) 0.2 10^3/uL (0.0-0.3); EOSINOPHILS % (AUTO) 3 % (0-10); HEMATOCRIT 42 % (40-54); HEMOGLOBIN 13.6 g/dL (13.3-17.7); LYMPHOCYTES % (AUTO) 13 % (12-44); MEAN CORPUSCULAR HEMOGLOBIN 29 pg (25-34); MEAN CORPUSCULAR HGB CONC 33 g/dL (32-36); MEAN CORPUSCULAR VOLUME 89 fL (80-99); MEAN PLATELET VOLUME 9.7 fL (9.0-12.2); MONOCYTES # (AUTO) 0.8 10^3/uL (0.0-1.0); MONOCYTES % (AUTO) 9 % (0-12); NEUTROPHILS # (AUTO) 5.9 10^3/uL (1.8-7.8); NEUTROPHILS % (AUTO) 73 % (42-75); PLATELET COUNT 524 10^3/uL (130-400); WHITE BLOOD COUNT 8.1 10^3/uL (4.3-11.0)
[2022-01-23 19:11] LABS: INR 0.9 (0.8-1.4); PROTHROMBIN TIME PATIENT 12.9 SEC (12.2-14.7)
[2022-01-23 19:18] LABS: ALBUMIN 3.6 GM/DL (3.2-4.5); BILIRUBIN,TOTAL 0.2 MG/DL (0.1-1.0); CALCIUM 9.5 MG/DL (8.5-10.1); CREATININE SERUM 0.86 MG/DL (0.60-1.30); POTASSIUM 4.1 MMOL/L (3.6-5.0); TOTAL PROTEIN 7.5 GM/DL (6.4-8.2)
--- NOTE | 2022-01-23 19:50 | Diagnostic Imaging Report ---
INDICATION: Sepsis. EXAMINATION: Portable AP view of the chest was obtained. COMPARISON: Study of 06/08/2019. FINDINGS: Overall heart size and pulmonary vascularity are at the upper limits of normal. There has been mild increase in right infrahilar density which could be due to atelectasis or pneumonitis. No consolidation, pneumothorax or pleural fluid is seen. IMPRESSION: Probable mild right infrahilar atelectasis and/or pneumonitis without other acute abnormality. Dictated by: Dictated on workstation # [id number]
[2022-01-23 20:58] VITALS: BP 187/91
[2022-01-23] MEDS ORDERED: ACETAMINOPHEN 500 MG TAB (TYLENOL) PO PRN (21:30)
[2022-01-23] MEDS: CATHETER FLUSH 10 ML SYR IVP SCH (22:21)
[2022-01-23 23:06] VITALS: BP 168/79
[2022-01-24] MEDS: PIPERACILLIN SODIUM/TAZOBACTAM 4.5 GM in NS (IVPB) 100 ML IV SCH ×3 (01:43→16:32)
[2022-01-24] MEDS: CATHETER FLUSH 10 ML SYR IVP SCH ×3 (01:46→21:29)
[2022-01-24 03:00] VITALS: BP 118/65
[2022-01-24 06:25] LABS: BASOPHILS # (AUTO) 0.1 10^3/uL (0.0-0.1); BASOPHILS % (AUTO) 1 % (0-10); EOSINOPHILS # (AUTO) 0.2 10^3/uL (0.0-0.3); EOSINOPHILS % (AUTO) 2 % (0-10); HEMATOCRIT 36 % (40-54); HEMOGLOBIN 11.8 g/dL (13.3-17.7); LYMPHOCYTES # (AUTO) 0.9 10^3/uL (1.0-4.0); LYMPHOCYTES % (AUTO) 10 % (12-44); MEAN CORPUSCULAR HEMOGLOBIN 29 pg (25-34); MEAN CORPUSCULAR HGB CONC 32 g/dL (32-36); MEAN CORPUSCULAR VOLUME 89 fL (80-99); MEAN PLATELET VOLUME 10.1 fL (9.0-12.2); MONOCYTES % (AUTO) 12 % (0-12); NEUTROPHILS # (AUTO) 6.3 10^3/uL (1.8-7.8); NEUTROPHILS % (AUTO) 74 % (42-75); PLATELET COUNT 415 10^3/uL (130-400); WHITE BLOOD COUNT 8.5 10^3/uL (4.3-11.0)
[2022-01-24 06:43] LABS: CALCIUM 8.9 MG/DL (8.5-10.1); CREATININE SERUM 0.78 MG/DL (0.60-1.30); POTASSIUM 4.2 MMOL/L (3.6-5.0)
[2022-01-24 07:24] VITALS: BP 112/65
[2022-01-24] MEDS: NICOTINE 21 MG (NICODERM) PATCH TD SCH (08:51)
--- NOTE | 2022-01-24 10:01 | History & Physical-Hospitalist ---
History of Present Illness HPI/Chief Complaint Patient is a 71-year-old male who presents to the emergency department for evaluation of worsening chronic wound to the posterior aspect of his left leg. Patient was seen in the [facility] emergency department on 01/19 where was recommended he be admitted for antibiotics. He left AMA at that time. Patient states he also recently went to his wound care clinic who also recommended he be admitted for antibiotics but he again refused. He presents today amenable to admission for IV antibiotics. He states the area is somewhat painful. He denies any other complaints at this time. States he has full sensation and m ovement in his left foot. He initially states he has not been told he has any problems with blood flow in the affected leg but then later states he does have a history of " vein problems" in that leg. He states the wound has been there for approximately 1 month but review of his EMR shows he has been seeing wound care for a wound in his left leg for several months. Patient denies any fever. He states he has not changed the dressing in several days. Upon my arrival patient is very disagreeable reporting that his leg and not been wrapped last night and that he is not going to stay 4 weeks. We did point out that the recommendation would be at least for several days of antibiotics IV and ongoing wound care with consultation in the morning as they are not available on Sundays. The wound well shallow was foul-smelling and reportedly had maggots when the patient arrived in the emergency room. He reports this all stems from jeans that were too tight but he has clear chronic venous insufficiency that has been there for quite a long time. It is possible that rubbing from tight clothing did create the initial sore. He denied night sweats chills or fever but was a poor historian and quite disagreeable during the interview rolling his eyes during straightforward simple nonconfrontational questions. Date Seen 01/24/22 Time Seen by a Provider: 08:15 Attending Physician Mary Antonio Aprn PCP Admitting Physician: Zurdo Barnes MD Attending Physician: Zurdo Barnes MD Referring Physician Date of Admission Jan 23, 2022 at 19:44 Home Medications & Allergies Home Medications Reviewed patient Home Medication Reconciliation performed by pharmacy medication reconciliations information technology technician and/or nursing. Patients Allergies have been reviewed. Allergies Allergies Coded Allergies No Known Drug Allergies (Unverified06/08/19) Past Zvjtpsi-Vldkhw-Ahkxhb Hx Patient Social History Tobacco Use?: Yes Tobacco type used: Cigarettes Smoking Status: Current Everyday Smoker Use of E-Cig and/or Vaping dev: No Substance use?: No Alcohol Use?: No Pt feels they are or have been: No Immunizations Up To Date First/Initial COVID19 Vaccinat: 2020 Second COVID19 Vaccination Lior: 2020 Seasonal Allergies Seasonal Allergies: No Current Status Advance Directives: No Communicates: Verbally Primary Language: Vietnamese Preferred Spoken Language: Vietnamese Is interpretation needed?: No Sensory deficits: Vision impairment Implanted or Applied Medical D: None Past Medical History Surgeries: Amputation, Vasectomy Coronary Artery Disease Stroke Amputee Blood Disorders: No Review of Systems Constitutional: see HPI Physical Exam Physical Exam Vital Signs Vital Signs - First Documented 01/23/22 01/23/22 18:34 20:33 Temp 37.1 Pulse 96 Resp 18 B/P (MAP) 151/98 (115) Pulse Ox 98 O2 Delivery Room Air Capillary Refill : Less Than 3 Seconds Height, Weight, BMI Height: '" Weight: lbs. oz. kg; 38.04 BMI Method: General Appearance: No Apparent Distress, Obese Respiratory: Chest Non Tender, Lungs Clear, Normal Breath Sounds, No Accessory Muscle Use, No Respiratory Distress Cardiovascular: Regular Rate, Rhythm, No Edema, No Gallop, No JVD, No Murmur, Normal Peripheral Pulses Gastrointestinal: Normal Bowel Sounds, No Organomegaly, No Pulsatile Mass, Non Tender, Soft Extremity: Other (Absence of the right foot secondary to a crush injury with no ulceration trace edema 3+ edema on the left with shallow macerated wound currently no maggots noted after cleaning there is tenderness and little more erythema in the wound base with surrounding tannish chronic venous insufficiency type pigmentation. No erythema above the level of the knee no evidence for ascending lymphangitis) Results Results/Procedures Labs Laboratory Tests 01/23/22 18:40 01/24/22 05:38 Patient resulted labs reviewed. Assessment/Plan Admission Diagnosis 1. Infected chronic venous insufficiency wound left lower extremity patient is being admitted for broad-spectrum antibiotics and wound care consultation with likely poor social circumstances and poor self-care at home. Admission Status: Inpatient Order (span 2 midnights) Reason for Inpatient Admission: See admission diagnosis ZURDO BARNES MD Jan 24, 2022 10:01
[2022-01-24 11:28] VITALS: BP 126/69
[2022-01-24 15:19] VITALS: BP 114/65
[2022-01-24] MEDS: MUPIROCIN 2% OINT 22 GM (BACTROBAN) TUBE TOP SCH ×2 (16:13→21:29)
[2022-01-24 19:03] VITALS: BP 143/77
[2022-01-24] MEDS ORDERED: BACITRACIN OINTMENT 28 GM TUBE TOP SCH (21:00)
[2022-01-24 23:20] VITALS: BP 104/64
[2022-01-25] MEDS: PIPERACILLIN SODIUM/TAZOBACTAM 4.5 GM in NS (IVPB) 100 ML IV SCH ×3 (01:45→17:58)
[2022-01-25 04:10] VITALS: BP 131/58
[2022-01-25] MEDS: CATHETER FLUSH 10 ML SYR IVP SCH ×3 (05:35→23:06)
[2022-01-25 07:07] VITALS: BP 126/59
[2022-01-25] MEDS ORDERED: SULF-221 PO (08:28)
[2022-01-25] MEDS: NICOTINE 21 MG (NICODERM) PATCH TD SCH (08:34)
[2022-01-25] MEDS: NICOTINE PATCH REMOVAL TP SCH (08:34)
[2022-01-25] MEDS: MUPIROCIN 2% OINT 22 GM (BACTROBAN) TUBE TOP SCH ×2 (08:35→21:24)
[2022-01-25] MEDS ORDERED: VANCOMYCIN INJECTION 0.1 MG in NS (IVPB) 250 ML IV SCH (08:45)
[2022-01-25] MEDS ORDERED: VANCOMYCIN 2000 MG/NS 500 ML IVPB IV NR ×2 (09:00)
[2022-01-25 09:34] LABS: HEMATOCRIT 38 % (40-54); HEMOGLOBIN 12.2 g/dL (13.3-17.7); MEAN CORPUSCULAR HEMOGLOBIN 29 pg (25-34); MEAN CORPUSCULAR HGB CONC 32 g/dL (32-36); MEAN CORPUSCULAR VOLUME 89 fL (80-99); MEAN PLATELET VOLUME 9.5 fL (9.0-12.2); PLATELET COUNT 403 10^3/uL (130-400); WHITE BLOOD COUNT 6.2 10^3/uL (4.3-11.0)
[2022-01-25 09:59] LABS: CREATININE SERUM 0.84 MG/DL (0.60-1.30); POTASSIUM 4.3 MMOL/L (3.6-5.0)
[2022-01-25 11:32] VITALS: BP 140/64
[2022-01-25] MEDS ORDERED: HYPOCHLOROUS ACID/NaCl (VASHE) 250 ML IR PRN (12:15)
[2022-01-25] MEDS: ENOXAPARIN 40 MG/0.4 ML (LOVENOX) SYR SQ SCH (13:31)
--- NOTE | 2022-01-25 15:24 | Wound Care Assessment ---
Wound Care Assessment Date Seen by Provider: Jan 25, 2022 Time Seen by Provider: 15:17 Chief Complaint Cellulitis with LLE ulcerations HPI This 71 year old gentleman is well known to my practice. Arie was seen as an outpatient for many months for an ulcer on his RLE before transferring his care to his PCP. Arie at the time lived alone and was unable to do dressings himself. He now lives with a "friend" who can assist in dressing changes. He was unable to continue his care with us due to financial concerns (gas prices on driving from [facility]). He only intermittently was able to keep his appointments, and we made little headway in treating his chronic ulcer as a result. Arie ultimately transferred to Dr. Green (when his clinic opening in [facility]) and Dr. Green was able to see him 3 times weekly and heal his RLE ulcer! Arie has not seen wound care in >1 month. He admits to not changing his own dressings on the left but 1-2 times weekly. He initially presented to the ER in [facility] for admit for cellulitis and wound infection but left AMA on 01/19/22. He came to our ER willing to be admitted but is requesting to leave now. I did encourage him to discuss his discharge status with his primary physician. On presentation he did have maggots in his wound and copious drainage. Arie has a h/o venous HTN, lymphedema, PAD, CAD, and COPD. His right foot was amputated in the past. He has a h/o living primarily out of his truck when his electicity is shut off. He declines half-way admission (his lives in nursing facility). Wound culture final pending (probable MRSA). He continues to smoke 1/2-3/4 ppd despite his financial woes and arterial/coronary artery disease. He is very resistant to elevating as recommended. Last TBI 0.51 on left in 2020. Past Medical History: Admits Heart Disease, Admits Peripheral Artery Disease COPD, lymphedema, R. foot amputation, venous insufficiency Smoking Status: Current Everyday Smoker Other Social Hx Many social issues (See HPI) Review of Systems General: Other (Obesity, poor hygiene) Cardiovascular: Edema Musculoskeletal: leg pain Neurological: Numbness Exam Vital Signs Date Time Temp Pulse Resp B/P (MAP) Pulse Ox O2 Delivery O2 Flow Rate FiO2 01/25/22 11:32 36.8 70 18 140/64 (89) 97 Room Air Capillary Refill : Less Than 3 Seconds General Appearance: no apparent distress, obese HEENT: other (normal hearing) Neck: full range of motion Respiratory: no respiratory distress, no accessory muscle use Extremities: normal range of motion, calf tenderness, inflammation, pedal edema Neurologic/Psychiatric: alert, normal mood/affect, oriented x 3 Skin Problem Location: lower extremities Skin Character: drainage, erythema, swelling, tenderness Wound assessment: The epithelialization is none. Drainage is large and serosanguinous, granulation is none, necrotic is large and slough/eschar, the margins are flat. There is erythema and induration of left calf with weeping to most of posterior calf in its entirety. Results Laboratory Tests 01/25/22 09:18: White Blood Count 6.2, Red Blood Count 4.22L, Hemoglobin 12.2L, Hematocrit 38L, Mean Corpuscular Volume 89, Mean Corpuscular Hemoglobin 29, Mean Corpuscular Hemoglobin Concent 32, Red Cell Distribution Width 13.5, Platelet Count 403H, Mean Platelet Volume 9.5, Sodium Level 133L, Potassium Level 4.3, Chloride Level 99, Carbon Dioxide Level 26, Anion Gap 8, Blood Urea Nitrogen 11, Creatinine 0.84, Estimat Glomerular Filtration Rate 93, BUN/Creatinine Ratio 13, Glucose Level 108H, Calcium Level 9.0 Microbiology 01/23/22 Gram Stain - Final, Resulted 01/23/22 Wound Culture - Preliminary, Resulted Staphylococcus aureus Microbiology 01/23/22 Gram Stain - Final, Resulted 01/23/22 Wound Culture - Preliminary, Resulted Staphylococcus aureus 01/23/22 Gram Stain - Final, Resulted 01/23/22 Wound Culture - Preliminary, Resulted Pseudomonas aeruginosa Staphylococcus aureus Mixed Bacterial Jessica Assessment/Plan/Dx Assessment: 1. Nonpressure ulcer LLE 2. Cellulitis LLE 3. Venous HTN with inflammation and ulcer LLE 4. Peripheral arterial disease 5. Tobaccoism 6. Obesity 7. Lymphedema 8. Noncompliance with medical recommendations 9. Poor hygiene with maggot infestation on presentation Plan: 1. Cleanse daily with vashe. Thick layer barrier ointment to periwound. Silver Alginate hydrofiber to open, weeping ulcers. Cover with ABD pad and secure with KIANA wrap. Change daily 2. Agree with broad spectrum antibiotics, target when culture available 3. As above. Elevation recommended 4. Abnormal segmental studies in past. Noncompliant with follow up in past. 5. Cessation declined 6. Weight loss would be advisable 7. Compression would be ideal once drainage improved and arterial status fully evaluated (likely unable due to follow up concerns). Not available during hospital admission. 8. I do think local follow up is necessary. He would prefer to follow up in [facility] due to financial concerns 9. I think Dr. Green was correct in that Arie requires assistance frequently to change dressings. I am not convinced he will be able to comply with recommendations on his own. However, if their office staff is able to assist him in this endeavor, his ulcers may very well heal. ELIZ JANSEN MD Jan 25, 2022 15:24
[2022-01-25 15:37] VITALS: BP 143/66
--- NOTE | 2022-01-25 16:04 | Progress Note ---
Subjective Subjective/Events-last exam Pt reports he is feeling okay, he is wanting to go home as soon as possible. Focused Exam Lactate Level 01/23/22 18:40: Lactic Acid Level 1.90 Objective Exam Last Set of Vital Signs Vital Signs Date Time Temp Pulse Resp B/P (MAP) Pulse Ox O2 Delivery O2 Flow Rate FiO2 01/25/22 15:37 37.0 69 18 143/66 (91) 95 Room Air Capillary Refill : Less Than 3 Seconds I&O Intake and Output 01/25/22 00:00 Intake Total 1712 ml Output Total 1535 ml Balance 177 ml Intake Oral 1362 ml IV Total 350 ml Output Urine Total 1535 ml # Voids 1 General: Alert, No Acute Distress Lungs: Clear to Auscultation, Normal Air Movement Heart: Regular Rate, No Murmurs Abdomen: Normal Bowel Sounds, Soft Extremities: Other (2+ pitting edema to left foot and lower leg, right foot amputated) Skin: Other (erythema and yellow drainage to entire left calf, right lower leg with chronic venous stasis dermatitis and thickened hypertrophic area over dorsal left with no left open ulcers) Psych/Mental Status: Mood NL Results/Procedures Lab Laboratory Tests 01/25/22 09:18: White Blood Count 6.2, Red Blood Count 4.22L, Hemoglobin 12.2L, Hematocrit 38L, Mean Corpuscular Volume 89, Mean Corpuscular Hemoglobin 29, Mean Corpuscular Hemoglobin Concent 32, Red Cell Distribution Width 13.5, Platelet Count 403H, Mean Platelet Volume 9.5, Sodium Level 133L, Potassium Level 4.3, Chloride Level 99, Carbon Dioxide Level 26, Anion Gap 8, Blood Urea Nitrogen 11, Creatinine 0.84, Estimat Glomerular Filtration Rate 93, BUN/Creatinine Ratio 13, Glucose Level 108H, Calcium Level 9.0 Microbiology 01/23/22 Gram Stain - Final, Resulted 01/23/22 Wound Culture - Preliminary, Resulted Staphylococcus aureus Assessment/Plan Assessment/Plan (1) Infected stasis ulcer Status: Acute Assessment & Plan: Started on Zosyn, culture with MRSA, added vancomycin. Appreciate Wound Care recommendation. Qualifiers: Qualified Codes: I83.229 - Varicose veins of left lower extremity with both ulcer of unspecified site and inflammation; L97.929 - Non-pressure chronic ulcer of unspecified part of left lower leg with unspecified severity (2) Left leg cellulitis Status: Acute (3) Peripheral arterial disease Status: Chronic Assessment & Plan: RAMONE 12/2020 with right 0.65, left normal. (4) High risk social situation Status: Chronic Assessment & Plan: automotive services manager consulted. History of maggot infestation and lack of utilities at home, but he is so far not open to plan besides home. BISHOP VALLEJO MD Jan 25, 2022 16:04
[2022-01-25 19:52] VITALS: BP 144/73
[2022-01-25] MEDS: VANCOMYCIN 1500 MG/NS 500 ML IVPB IV SCH ×2 (21:24)
[2022-01-25 23:54] VITALS: BP 144/78
[2022-01-26] MEDS: PIPERACILLIN SODIUM/TAZOBACTAM 4.5 GM in NS (IVPB) 100 ML IV SCH ×3 (01:21→17:51)
[2022-01-26 03:24] VITALS: BP 142/86
[2022-01-26] MEDS: CATHETER FLUSH 10 ML SYR IVP SCH ×3 (05:35→20:30)
[2022-01-26 05:57] LABS: HEMATOCRIT 35 % (40-54); HEMOGLOBIN 11.6 g/dL (13.3-17.7); MEAN CORPUSCULAR HEMOGLOBIN 30 pg (25-34); MEAN CORPUSCULAR HGB CONC 34 g/dL (32-36); MEAN CORPUSCULAR VOLUME 89 fL (80-99); MEAN PLATELET VOLUME 9.7 fL (9.0-12.2); PLATELET COUNT 386 10^3/uL (130-400); WHITE BLOOD COUNT 6.7 10^3/uL (4.3-11.0)
[2022-01-26 06:13] LABS: POTASSIUM 4.3 MMOL/L (3.6-5.0)
[2022-01-26 06:14] LABS: CALCIUM 8.6 MG/DL (8.5-10.1)
[2022-01-26 06:19] LABS: CREATININE SERUM 0.86 MG/DL (0.60-1.30)
[2022-01-26 07:20] VITALS: BP 148/67
[2022-01-26] MEDS: NICOTINE PATCH REMOVAL TP SCH (08:40)
[2022-01-26] MEDS: NICOTINE 21 MG (NICODERM) PATCH TD SCH (08:40)
[2022-01-26] MEDS: VANCOMYCIN 1500 MG/NS 500 ML IVPB IV SCH ×4 (08:40→21:12)
[2022-01-26] MEDS: MUPIROCIN 2% OINT 22 GM (BACTROBAN) TUBE TOP SCH ×2 (08:40→20:29)
--- NOTE | 2022-01-26 11:42 | Progress Note ---
Subjective Subjective/Events-last exam Pt reports he is feeling okay, is wanting to go home soon. Focused Exam Lactate Level 01/23/22 18:40: Lactic Acid Level 1.90 Objective Exam Last Set of Vital Signs Vital Signs Date Time Temp Pulse Resp B/P (MAP) Pulse Ox O2 Delivery O2 Flow Rate FiO2 01/26/22 08:30 Room Air 01/26/22 07:20 36.7 81 18 148/67 (94) 93 Capillary Refill : Less Than 3 Seconds I&O Intake and Output 01/25/22 23:59 Intake Total 1640 ml Output Total 1550 ml Balance 90 ml Intake Oral 1540 ml IV Total 100 ml Output Urine Total 1550 ml # Bowel Movements 1 General: Alert, No Acute Distress Lungs: Clear to Auscultation, Normal Air Movement Heart: Regular Rate, No Murmurs Extremities: Other (trace to 1+ pitting edema of left dorsal foot, calf wrapped with KIANA over dressing) Neuro: Normal Speech Psych/Mental Status: Mood NL Results/Procedures Lab Laboratory Tests 01/26/22 05:45: White Blood Count 6.7, Red Blood Count 3.86L, Hemoglobin 11.6L, Hematocrit 35L, Mean Corpuscular Volume 89, Mean Corpuscular Hemoglobin 30, Mean Corpuscular Hemoglobin Concent 34, Red Cell Distribution Width 13.7, Platelet Count 386, Mean Platelet Volume 9.7, Sodium Level 134L, Potassium Level 4.3, Chloride Level 103, Carbon Dioxide Level 23, Anion Gap 8, Blood Urea Nitrogen 10, Creatinine 0.86, Estimat Glomerular Filtration Rate 93, BUN/Creatinine Ratio 12, Glucose Level 88, Calcium Level 8.6 Microbiology 01/23/22 Blood Culture - Preliminary, Resulted No growth 01/23/22 Gram Stain - Final, Resulted 01/23/22 Wound Culture - Preliminary, Resulted Staphylococcus aureus Assessment/Plan Assessment/Plan (1) Infected stasis ulcer Status: Acute Assessment & Plan: Started on Zosyn, culture with MRSA, added vancomycin. Appreciate Wound Care recommendation. 01/26/22- Sensitivity pending Qualifiers: Qualified Codes: I83.229 - Varicose veins of left lower extremity with both ulcer of unspecified site and inflammation; L97.929 - Non-pressure chronic ulcer of unspecified part of left lower leg with unspecified severity (2) Left leg cellulitis Status: Acute (3) Peripheral arterial disease Status: Chronic Assessment & Plan: RAMONE 12/2020 with right 0.65, left normal. (4) High risk social situation Status: Chronic Assessment & Plan: social services manager consulted. History of maggot infestation and lack of utilities at home, but he is so far not open to plan besides home. (5) DVT prophylaxis Status: Acute Assessment & Plan: Enoxaparin BISHOP VALLEJO MD Jan 26, 2022 11:42
[2022-01-26 12:03] VITALS: BP 149/68
[2022-01-26] MEDS: ENOXAPARIN 40 MG/0.4 ML (LOVENOX) SYR SQ SCH (13:02)
[2022-01-26 16:53] VITALS: BP 181/83
[2022-01-26] MEDS ORDERED: lisINopril 20 MG (PRINIVIL) TABLET PO NR (18:30)
[2022-01-26 19:55] VITALS: BP 173/84
[2022-01-26] MEDS ORDERED: TROUGH ORDER-PHARMACY XX NR (20:00)
[2022-01-26 23:21] VITALS: BP 175/85
[2022-01-27] MEDS: PIPERACILLIN SODIUM/TAZOBACTAM 4.5 GM in NS (IVPB) 100 ML IV SCH ×2 (01:26→09:31)
[2022-01-27 03:39] VITALS: BP 152/74
[2022-01-27] MEDS: CATHETER FLUSH 10 ML SYR IVP SCH ×2 (05:30→16:22)
[2022-01-27 05:50] LABS: HEMATOCRIT 37 % (40-54); HEMOGLOBIN 12.1 g/dL (13.3-17.7); MEAN CORPUSCULAR HEMOGLOBIN 29 pg (25-34); MEAN CORPUSCULAR HGB CONC 32 g/dL (32-36); MEAN CORPUSCULAR VOLUME 90 fL (80-99); MEAN PLATELET VOLUME 9.9 fL (9.0-12.2); PLATELET COUNT 383 10^3/uL (130-400); WHITE BLOOD COUNT 6.4 10^3/uL (4.3-11.0)
[2022-01-27 05:56] LABS: POTASSIUM 4.2 MMOL/L (3.6-5.0)
[2022-01-27 05:57] LABS: CALCIUM 8.8 MG/DL (8.5-10.1)
[2022-01-27 06:02] LABS: CREATININE SERUM 0.86 MG/DL (0.60-1.30)
[2022-01-27 07:06] VITALS: BP 156/74
[2022-01-27] MEDS ORDERED: VANCOMYCIN 1250 MG/NS 250 ML IVPB IV SCH ×2 (08:00)
[2022-01-27] MEDS ORDERED: lisINopril 20 MG (PRINIVIL) TABLET PO SCH (09:00)
[2022-01-27] MEDS: NICOTINE 21 MG (NICODERM) PATCH TD SCH (09:32)
[2022-01-27] MEDS: MUPIROCIN 2% OINT 22 GM (BACTROBAN) TUBE TOP SCH (09:32)
[2022-01-27] MEDS: NICOTINE PATCH REMOVAL TP SCH (09:32)
[2022-01-27 11:42] VITALS: BP 184/82
[2022-01-27] MEDS ORDERED: LNZ600T PO (15:32)
[2022-01-27] MEDS ORDERED: LISI20TA26 PO (15:32)
[2022-01-27] MEDS ORDERED: LEVO-55 PO (15:32)
--- NOTE | 2022-01-27 15:34 | Discharge Summary ---
Discharge Inst-[facility] Discharge Medications New, Converted or Re-Newed RX: Transmitted to Pharmacy (to apothecare at the [facility] (if you cannot afford/pick remover medication, please call clinic staff for instructions)) New Medications: Levofloxacin (Levofloxacin) 500 Mg Tablet 500 MG PO DAILY, #7 TAB 0 Refills Linezolid (Linezolid) 600 Mg Tablet 600 MG PO BID, #14 TAB 0 Refills Lisinopril (Lisinopril) 20 Mg Tablet 20 MG PO DAILY, #30 TAB 0 Refills Discontinued Medications: Sulfamethoxazole/Trimethoprim (Bactrim Ds Tablet) 800 Mg-160 Mg Tablet 1 EACH PO BID, TAB FILLED 01-20-2022 #20/10 DAY SUPPLY Patient Instructions Goal/Follow Up Appt: Follow up with Mary Antonio as scheduled on 01/26/22 You should receive a phone call from [facility] within a day or so of discharge with an appointment with Dr. Green for wound care. If you do not hear from them, please call clinic and request to speak with nurse. Patient Instructions: Cleanse wound daily with vashe. Apply thick layer barrier ointment to periwound. Silver Alginate hydrofiber to open, weeping ulcers. Cover with ABD pad and secure with KIANA wrap. Change daily. Return to [facility] For: Fever, chest pain, shortness of breath, inability to keep down medications. Activity & Diet Discharge Diet: Regular Diet Activity as Tolerated: Yes BISHOP VALLEJO MD Jan 27, 2022 15:34
--- NOTE | 2022-01-27 15:36 | Discharge Summary ---
Discharge Summary Hospital Course Problems/Diagnosis: (1) Infected stasis ulcer Status: Acute Assessment & Plan: Started on Zosyn, culture with MRSA, added vancomycin. Appreciate Wound Care recommendation. 01/26/22- Sensitivity pending 01/27/22- sensitivity pending and not expected to return until tomorrow, patient adamant about d/c today, sent on levofloxacin and linezolid empirically, will follow up final sensitivity outpatient. Contacted [facility] transition nursing who will work on getting him re-scheduled with Dr. Green (wound care) puneet. Qualifiers: Qualified Codes: I83.229 - Varicose veins of left lower extremity with both ulcer of unspecified site and inflammation; L97.929 - Non-pressure chronic ulcer of unspecified part of left lower leg with unspecified severity (2) Left leg cellulitis Status: Acute (3) Peripheral arterial disease Status: Chronic Assessment & Plan: RAMONE 12/2020 with right 0.65, left normal. (4) Hypertension Status: Acute Assessment & Plan: BP persistently elevated, started on lisinopril. (5) High risk social situation Status: Chronic Assessment & Plan: substance abuse services director consulted. History of maggot infestation and lack of utilities at home, but he is so far not open to plan besides home. Declined home health as well. Hospital Course Date of Admission: Jan 23, 2022 at 19:44 Admission Diagnosis : Family Physician/Provider: Mary Antonio Aprn Date of Discharge: 01/27/22 Discharge Diagnosis: See problem list Hospital Course: See problem list Labs and Pending Lab Test: Laboratory Tests 01/26/22 20:26: Vancomycin Level Trough 20.5H 01/27/22 05:30: White Blood Count 6.4, Red Blood Count 4.14L, Hemoglobin 12.1L, Hematocrit 37L, Mean Corpuscular Volume 90, Mean Corpuscular Hemoglobin 29, Mean Corpuscular Hemoglobin Concent 32, Red Cell Distribution Width 13.5, Platelet Count 383, Mean Platelet Volume 9.9, Sodium Level 132L, Potassium Level 4.2, Chloride Level 103, Carbon Dioxide Level 18L, Anion Gap 11, Blood Urea Nitrogen 7, Creatinine 0.86, Estimat Glomerular Filtration Rate 93, BUN/Creatinine Ratio 8, Glucose Level 108H, Calcium Level 8.8 Microbiology 01/23/22 Blood Culture - Preliminary, Resulted No growth 01/23/22 Gram Stain - Final, Resulted 01/23/22 Wound Culture - Preliminary, Resulted Staphylococcus aureus Mixed Bacterial Jessica Home Meds Active Linezolid 600 Mg Tablet 600 Mg PO BID Levofloxacin 500 Mg Tablet 500 Mg PO DAILY Lisinopril 20 Mg Tablet 20 Mg PO DAILY Assessment/Pt DC Instructions Follow up with Mary Antonio as scheduled on 02/05/22, [facility] to call with wound care appointment. Discharge Diet: Regular Diet Activity as Tolerated: Yes Discharge Physical Examination Allergies: Coded Allergies: No Known Drug Allergies (Unverified , 06/08/19) General Appearance: No Apparent Distress Respiratory: Lungs Clear, Normal Breath Sounds Cardiovascular: Regular Rate, Rhythm, No Murmur Extremity: Other (left leg wrapped with KIANA, foot with trace pitting edema, 2+ pedal pulse; right foot historical amputation) Neurologic/Psychiatric: Alert, Normal Mood/Affect BISHOP VALLEJO MD Jan 27, 2022 15:36
[2022-01-27] MEDS: ENOXAPARIN 40 MG/0.4 ML (LOVENOX) SYR SQ SCH (16:22)
[2022-01-27 18:24] VITALS: BP 184/82
[2022-01-28] MEDS ORDERED: TROUGH ORDER-PHARMACY XX ONE (07:00)
== END 2022-01-27 16:45 | disposition home or self-care (01) | DRG 300 ==
LOC: EDUNIT# 18:05 → ER 18:07 → 4TH 19:44
PROVIDERS: ADMIT Internal Medicine; ATTEND Family Medicine
DX: I83.229 Varicose veins of left lower extremity with both ulcer of unspecified site and inflammation (principal); L03.116 Cellulitis of left lower limb; L97.929 Non-pressure chronic ulcer of unspecified part of left lower leg with unspecified severity; I73.9 Peripheral vascular disease, unspecified; I10 Essential (primary) hypertension; F17.210 Nicotine dependence, cigarettes, uncomplicated; E66.9 Obesity, unspecified; I89.0 Lymphedema, not elsewhere classified; Z91.14 Patient's other noncompliance with medication regimen; Z72.821 Inadequate sleep hygiene; B87.9 Myiasis, unspecified; I25.10 Atherosclerotic heart disease of native coronary artery without angina pectoris; Z86.73 Personal history of transient ischemic attack (TIA), and cerebral infarction without residual deficits; Z68.38 Body mass index [BMI] 38.0-38.9, adult
CPT/HCPCS: 36415; 71045; 80048; 80053; 80202; 83605; 85025; 85027; 85610; 85730; 87040; 87070; 87077; 87186; 87205

== ENCOUNTER 2022-10-29 16:35 | Emergency (ER) | payer MEDICARE ==
[~2022-10-29] VITALS: Ht 170.2 cm; Wt 90.8 kg
[2022-10-29 16:35] VITALS: BP 113/59
[~2022-10-29 16:35] MED LIST changes: +LEVO-55 PO; +LISI20TA26 PO; +LNZ600T PO; +SULF-221 PO
[2022-10-29] MEDS ORDERED: dexAMETHasone INJ 10 MG/ML 1 ML VIAL IV STA (16:56)
[2022-10-29] MEDS ORDERED: NS IV 1000 ML 1,000 ML IV STA (16:56)
[2022-10-29 17:01] LABS: BASOPHILS # (AUTO) 0.1 10^3/uL (0.0-0.1); BASOPHILS % (AUTO) 0 % (0-10); EOSINOPHILS % (AUTO) 0 % (0-10); HEMATOCRIT 42 % (40-54); HEMOGLOBIN 13.7 g/dL (13.3-17.7); LYMPHOCYTES # (AUTO) 0.6 10^3/uL (1.0-4.0); LYMPHOCYTES % (AUTO) 4 % (12-44); MEAN CORPUSCULAR HEMOGLOBIN 29 pg (25-34); MEAN CORPUSCULAR HGB CONC 33 g/dL (32-36); MEAN CORPUSCULAR VOLUME 89 fL (80-99); MEAN PLATELET VOLUME 10.5 fL (9.0-12.2); MONOCYTES # (AUTO) 1.8 10^3/uL (0.0-1.0); MONOCYTES % (AUTO) 10 % (0-12); NEUTROPHILS # (AUTO) 14.7 10^3/uL (1.8-7.8); NEUTROPHILS % (AUTO) 85 % (42-75); PLATELET COUNT 373 10^3/uL (130-400); WHITE BLOOD COUNT 17.4 10^3/uL (4.3-11.0)
[2022-10-29 17:03] LABS: ABG PCO2 37 MMHG (35-45); ABG PO2 48 MMHG (79-93)
[2022-10-29 17:04] LABS: ABG BASE EXCESS 5.5 MMOL/L (-2.5-2.5); ABG OXYGEN SATURATION 87 % (94-100); VENTILATOR NO
[2022-10-29 17:07] LABS: INSPIRED O2 2 L
[2022-10-29 17:20] LABS: LYMPHOCYTES % (MANUAL) 10 %; MONOCYTES % (MANUAL) 11 %; NEUTROPHILS % (MANUAL) 79 %
--- NOTE | 2022-10-29 17:21 | Diagnostic Imaging Report ---
HISTORY: Hypoxia. COMPARISON: 01/23/2022. TECHNIQUE: Frontal view of the chest. FINDINGS: Lung volumes are normal. The right lung apex is partially obscured by the chin. There are airspace opacities in the lung bases and right midlung. There is no large effusion or pneumothorax. The cardiac silhouette is mildly large. IMPRESSION: 1. Bibasilar and right midlung airspace opacities, may be due to atelectasis, edema or infection. 2. Mild cardiomegaly. Dictated by: Dictated on workstation # [id number]
[2022-10-29 17:25] LABS: BILIRUBIN,TOTAL 2.4 MG/DL (0.1-1.0); CALCIUM 9.2 MG/DL (8.5-10.1); CREATININE SERUM 1.23 MG/DL (0.60-1.30); POTASSIUM 4.2 MMOL/L (3.6-5.0)
[2022-10-29 17:26] LABS: ALBUMIN 3.3 GM/DL (3.2-4.5)
--- NOTE | 2022-10-29 17:34 | ED General ---
General Chief Complaint: General Problems/Pain Stated Complaint: FALLS Source of Information: Patient History of Present Illness Date Seen by Provider: Oct 29, 2022 Time Seen by Provider: 16:31 Initial Comments 72-year-old male presenting with EMS from [place]. He had been standing by the [facility] and was having some shortness of breath and difficulty getting around. 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 He states he follows with the wound care clinic at [facility] about that. He does have a wrap on his right lower extremity. He denies any fever or chills. He states that he does not want to be in the emergency department and was forced to come here. He initially was having oxygen saturation of 83 to 85% on room air. Obtain ABG and place patient on supplemental oxygen today. He denies having increased shortness of breath beyond his baseline. He also denies being on oxygen at home. He states he does take medications but cannot name them. He follows with the [facility] clinic but thought that he follows with [facility]ung but was not sure. Modifying Factors: worse with Movement Associated Systoms: No Chest Pain; Cough; No Diaphoresis; Fever/Chills; No Headaches; Loss of Appetite, Malaise; No Nausea/Vomiting, No Rash, No Seizure; Shortness of Air (Chronic and no worse than usual); No Syncope; Weakness Allergies and Home Medications Allergies Coded Allergies: No Known Drug Allergies (Unverified , 06/08/19) Patient Home Medication List Home Medication List Reviewed: Yes Azithromycin (Azithromycin) 500 Mg Tablet, 500 MG PO DAILY Prescribed by: HENRY MORALES on 10/29/221746 Levofloxacin (Levofloxacin) 500 Mg Tablet, 500 MG PO DAILY Prescribed by: BISHOP VALLEJO on 01/27/22 153 Linezolid (Linezolid) 600 Mg Tablet, 600 MG PO BID Prescribed by: BISHOP VALLEJO on 01/27/22 153 Lisinopril (Lisinopril) 20 Mg Tablet, 20 MG PO DAILY Prescribed by: BISHOP VALLEJO on 01/27/22 153 Review of Systems Review of Systems Constitutional: chills, fever EENTM: no symptoms reported Respiratory: cough, short of breath; No stridor, No wheezing Cardiovascular: No chest pain; edema Gastrointestinal: No nausea, No vomiting Genitourinary: No dysuria Musculoskeletal: see HPI Psychiatric/Neurological: Denies Headache Past [id number]-[id number] Hx Patient Social History Tobacco Use?: Yes Tobacco type used: Cigarettes Smoking Status: Current Everyday Smoker Use of E-Cig and/or Vaping dev: No Substance use?: No Alcohol Use?: No Immunizations Up To Date Influenza Vaccine Up-to-Date: No; Not Current First/Initial COVID19 Vaccinat: 2020 Second COVID19 Vaccination Lior: 2020 Third COVID19 Vaccination Date: 2020 Seasonal Allergies Seasonal Allergies: No Past Medical History Surgery/Hospitalization HX: COPD Surgeries: Yes Amputation, Vasectomy Respiratory: No Cardiac: Yes Coronary Artery Disease Neurological: Yes Stroke Genitourinary: No Gastrointestinal: No Musculoskeletal: Yes Amputee Endocrine: No HEENT: No Cancer: No Psychosocial: No Integumentary: No Blood Disorders: No Physical Exam Vital Signs Vital Signs - First Documented 10/29/22 10/29/22 16:35 17:02 Temp 38.0 Pulse 110 Resp 24 B/P (MAP) 113/59 (77) O2 Delivery Room Air O2 Flow Rate 2.00 FiO2 94 Capillary Refill : Height, Weight, BMI Height: '" Weight: lbs. oz. 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 Norm as Tested Skin: Warm/Dry Focused Exam Lactate Level 10/29/22 16:40: Lactic Acid Level 1.82 Lactic Acid Level Laboratory Tests Test 10/29/22 16:40 Lactic Acid Level 1.82 MMOL/L (0.50-2.00) Progress/Results/Core Measures Suspected Sepsis SIRS Temperature: Pulse: Respiratory Rate: Laboratory Tests 10/29/22 16:40: White Blood Count 17.4H Blood Pressure / Mean: 10/29/22 16:40: Lactic Acid Level 1.82 Laboratory Tests 10/29/22 16:40: Creatinine 1.23, Platelet Count 373, Total Bilirubin 2.4H Results/Orders Lab Results Laboratory Tests Test 10/29/22 16:40 Range/Units White Blood Count 17.4 H 4.3-11.0 10^3/uL Red Blood Count 4.71 4.30-5.52 10^6/uL Hemoglobin 13.7 13.3-17.7 g/dL Hematocrit 42 40-54 % Mean Corpuscular Volume 89 80-99 fL Mean Corpuscular Hemoglobin 29 25-34 pg Mean Corpuscular Hemoglobin Concent 33 32-36 g/dL Red Cell Distribution Width 13.0 10.0-14.5 % Platelet Count 373 130-400 10^3/uL Mean Platelet Volume 10.5 9.0-12.2 fL Immature Granulocyte % (Auto) 1 % Neutrophils (%) (Auto) 85 H 42-75 % Lymphocytes (%) (Auto) 4 L 12-44 % Monocytes (%) (Auto) 10 0-12 % Eosinophils (%) (Auto) 0 0-10 % Basophils (%) (Auto) 0 0-10 % Neutrophils # (Auto) 14.7 H 1.8-7.8 10^3/uL Lymphocytes # (Auto) 0.6 L 1.0-4.0 10^3/uL Monocytes # (Auto) 1.8 H 0.0-1.0 10^3/uL Eosinophils # (Auto) 0.0 0.0-0.3 10^3/uL Basophils # (Auto) 0.1 0.0-0.1 10^3/uL Immature Granulocyte # (Auto) 0.1 0.0-0.1 10^3/uL Neutrophils % (Manual) 79 % Lymphocytes % (Manual) 10 % Monocytes % (Manual) 11 % Blood Gas Puncture Site RIGHT BRACHIAL Blood Gas Patient Temperature 38.0 Arterial Blood pH 7.50 H 7.37-7.43 Arterial Blood Partial Pressure CO2 37 35-45 MMHG Arterial Blood Partial Pressure O2 48 L 79-93 MMHG Arterial Blood HCO3 29 H 23-27 MMOL/L Arterial Blood Total CO2 30.0 21.0-31.0 MMOL/L Arterial Blood Oxygen Saturation 87 L 94-100 % Arterial Blood Base Excess 5.5 H -2.5-2.5 MMOL/L Telly Test Blood Gas Ventilator Setting NO Blood Gas Inspired Oxygen 2 L Sodium Level 135 135-145 MMOL/L Potassium Level 4.2 3.6-5.0 MMOL/L Chloride Level 96 L 98-107 MMOL/L Carbon Dioxide Level 24 21-32 MMOL/L Anion Gap 15 H 5-14 MMOL/L Blood Urea Nitrogen 22 H 7-18 MG/DL Creatinine 1.23 0.60-1.30 MG/DL Estimat Glomerular Filtration Rate 62 BUN/Creatinine Ratio 18 Glucose Level 120 H 70-105 MG/DL Lactic Acid Level 1.82 0.50-2.00 MMOL/L Calcium Level 9.2 8.5-10.1 MG/DL Corrected Calcium 9.8 8.5-10.1 MG/DL Total Bilirubin 2.4 H 0.1-1.0 MG/DL Aspartate Amino Transf (AST/SGOT) 20 5-34 U/L Alanine Aminotransferase (ALT/SGPT) 16 0-55 U/L Alkaline Phosphatase 91 40-136 U/L C-Reactive Protein 20.17 H <0.50 MG/DL Total Protein 7.0 6.4-8.2 GM/DL Albumin 3.3 3.2-4.5 GM/DL My Orders Orders - HENRY MORALES MD Cbc With Automated Diff (10/29/22 16:55) Comprehensive Metabolic Panel (10/29/22 16:55) Blood Culture (10/29/22 16:55) Chest 1 View Ap/Pa Only (10/29/22 16:55) Ed Iv/Invasive Line Start (10/29/22 16:55) Crp Fs (10/29/22 16:55) Lactic Acid Analyzer (10/29/22 16:55) Arterial Blood Gas (10/29/22 16:55) O2 (10/29/22 16:55) Ns Iv 1000 Ml (Sodium Chloride 0.9%) (10/29/22 16:56) Manual Differential (10/29/22 16:40) Ceftriaxone Iv/Im (Ceftriaxone Iv/Im) (10/29/22 17:35) Azithromycin Tablet (Azithromycin Tabl (10/29/22 17:35) Vital Signs/I&O 10/29/22 10/29/22 16:35 17:02 Temp 38.0 Pulse 110 Resp 24 B/P (MAP) 113/59 (77) O2 Delivery Room Air Nasal Cannula O2 Flow Rate 2.00 FiO2 94 Capillary Refill : Progress Note #1: Progress Note Potential diagnosis of pneumonia, UTI, sepsis, pulmonary embolism, dehydration, upper respiratory infection. Obtain ABG for his hypoxia. Also obtain blood work of complete blood count, comprehensive metabolic profile, lactic acid, blood cultures, cardiac enzymes, coagulation factors, urinalysis. As he had already had a breathing treatment just before coming to the ED will defer additional ones at this point. Placed on supplemental oxygen since his O2 sat was 83 to 85% on room air. Administer normal saline 1 L IV fluid bolus to help with hydration. Progress Note #2: Progress Note Labs showed an elevated white blood cell count of 17.4 thousand with a left shift. His hemoglobin was low normal at 13.7. His comprehensive metabolic profile did not show an elevated lactic acid for sepsis. He was not able to provide a urine specimen. His 1 view chest x-ray had demonstrated right middle and lower lobe infiltrate. We will treat with Rocephin and Zithromax for commun ity-acquired pneumonia. Counseled patient on admission with his increased risk for having heart attack, stroke, pulmonary embolism, worsening pneumonia, sepsis, shutting down of his organs. I recommended that he be admitted for IV antibiotics and supplemental oxygen. Patient adamantly refused and voiced understanding that he was at risk of declining as well as having other condi tions such as the heart attack, stroke, blood clots in his lungs, sepsis and . Even knowing this he was still adamant that he would not be admitted and was leaving AGAINST MEDICAL ADVICE. Given prescription for Zithromax 500 mg p.o. daily x5 days to continue at home in addition to giving his first dose of medicine here in the ED. Stressed return precautions and follow-up precautions. Diagnostic Imaging Diagonstic Imaging: Xray Plain Films/CT/US/NM/MRI: chest Comments [facility]. [place], [place] NAME: GIAN ROPER Miguel [facility] REC#: [id number] PT STATUS: REG ER : 1950 PHYSICIAN: HENRY MORALES MD ADMIT DATE: 10/29/22/ER FS Signed Date of Exam:10/29/22 CHEST 1 VIEW AP/PA ONLY HISTORY: Hypoxia. COMPARISON: 01/23/2022. TECHNIQUE: Frontal view of the chest. FINDINGS: Lung volumes are normal. The right lung apex is partially obscured by the chin. There are airspace opacities in the lung bases and right midlung. There is no large effusion or pneumothorax. The cardiac silhouette is mildly large. IMPRESSION: 1. Bibasilar and right midlung airspace opacities, may be due to atelectasis, edema or infection. 2. Mild cardiomegaly. Dictated by: Dictated on workstation # [id number] Dict: 10/29/22 1713 Trans: 10/29/221805 [id number] Interpreted by: JITENDRA CUNHA MD Electronically signed by: JITENDRA CUNHA MD 10/29/221805 Reviewed: Reviewed by Me Departure Impression Primary Impression: Left against medical advice Additional Impressions: Pneumonia of right lower lobe due to infectious organism Hypoxia Disposition: AGAINST MEDICAL ADVICE Condition: Against Medical Advice Departure-Patient Inst. Decision time for Depature: 17:45 Referrals: [facility] (PCP/Family) Primary Care Physician Patient Instructions: Pneumonia, Adult ED, Leaving Against Medical Advice Add. Discharge Instructions: You are refusing medical care for your pneumonia. The pneumonia is causing your oxygen to be low and could have a stroke, heart attack, sepsis, from this. You are getting a dose of antibiotics here and a prescription has been sent to the pharmacy to continue antibiotics by mouth. Follow-up with the clinic for continued symptoms or worsening complaints. All discharge instructions reviewed with patient and/or family. Voiced understanding. Scripts Azithromycin (Azithromycin) 500 Mg Tablet 500 MG PO DAILY for Pneumonia for 5 Days, #5 TAB 0 Refills Prov: HENRY MORALES MD 10/29/22 HENRY MORALES MD Oct 29, 2022 17:34
[2022-10-29] MEDS ORDERED: cefTRIAXone IV/IM 1,000 MG in NS (IVPB) 50 ML 50 ML IV STA (17:35)
[2022-10-29] MEDS ORDERED: AZITHROMYCIN 250 MG TABLET PO STA (17:35)
[2022-10-29] MEDS ORDERED: AZIT500T9 PO (17:47)
== END 2022-10-29 18:17 | disposition left against medical advice (07) ==
LOC: EDUNIT# 16:35 → ER FS 16:36
DX: J18.9 Pneumonia, unspecified organism (principal); R09.02 Hypoxemia; R91.8 Other nonspecific abnormal finding of lung field; F17.210 Nicotine dependence, cigarettes, uncomplicated
CPT/HCPCS: 36415; 71045; 80053; 82805; 83605; 85007; 85027; 86141; 87040

== ENCOUNTER 2022-11-01 22:58 | Emergency (ER) | payer MEDICARE ==
[~2022-11-01 22:58] MED LIST changes: +AZIT500T9 PO
[2022-11-01] MEDS ORDERED: RT-ALBUTEROL SULF 2.5 MG/3 ML PRE-MIX VIAL INH ONE (23:15)
[2022-11-01 23:39] VITALS: BP 132/71
--- NOTE | 2022-11-01 23:44 | ED Respiratory ---
General Chief Complaint: Respiratory Problems Stated Complaint: SOB Nursing Triage Note: Pt brought in by ems with the complaint of sob. Pt has been short of breath throughout the week and has called ems multiple times in the last 24 hours. Pt is requiring 5 L of oxygen from ems. Source: patient, EMS, RN notes reviewed, EMS notes reviewed, old records Exam Limitations: clinical condition History of Present Illness Date Seen by Provider: Nov 01, 2022 Time Seen by Provider: 22:57 Initial Comments 72-year-old male patient with history of currently smoking, COPD without home oxygen, coronary artery disease, hypertension not in by EMS because of shortness of breath. Patient was found unresponsive by neighbors but had arrival of EMS he was awake and did not want to come to the hospital. EMS had him on 5 L of oxygen with O2 sat of 90-95% and gave him Solu-Medrol 125 mg IV and DuoNeb. Patient called EMS several times the last 24 hours and was seen in this emergency room on October 29 with complaining of shortness of breath and left AMA. Patient is a poor historian and refused to give the answers but is alert and oriented. Allergies and Home Medications Allergies Coded Allergies: No Known Drug Allergies (Unverified , 06/08/19) Patient Home Medication List Home Medication List Reviewed: Yes Azithromycin (Azithromycin) 500 Mg Tablet, 500 MG PO DAILY Prescribed by: HENRY MORALES on 10/29/22 174 Levofloxacin (Levofloxacin) 500 Mg Tablet, 500 MG PO DAILY Prescribed by: BISHOP VALLEJO on 01/27/22 153 Linezolid (Linezolid) 600 Mg Tablet, 600 MG PO BID Prescribed by: BISHOP VALLEJO on 01/27/22 153 Lisinopril (Lisinopril) 20 Mg Tablet, 20 MG PO DAILY Prescribed by: BISHOP VALLEJO on 01/27/22 153 Review of Systems Review of Systems Constitutional: see HPI EENTM: see HPI Respiratory: see HPI Cardiovascular: see HPI Genitourinary: see HPI Musculoskeletal: see HPI Skin: see HPI Psychiatric/Neurological: See HPI Hematologic/Lymphatic: See HPI Immunological/Allergic: see HPI All Other Systems Reviewed Negative Unless Noted: Yes Past Nyitvju-Mosyss-Vdcgwx Hx Patient Social History Tobacco Use?: No Use of E-Cig and/or Vaping dev: No Substance use?: No Alcohol Use?: No Pt feels they are or have been: No Immunizations Up To Date First/Initial COVID19 Vaccinat: 2020 Second COVID19 Vaccination Lior: 2020 Third COVID19 Vaccination Date: 2020 Seasonal Allergies Seasonal Allergies: No Past Medical History Surgery/Hospitalization HX: COPD Surgeries: Yes Amputation, Vasectomy Respiratory: No Cardiac: Yes Coronary Artery Disease Neurological: Yes Stroke Genitourinary: No Gastrointestinal: No Musculoskeletal: Yes Amputee Endocrine: No HEENT: No Cancer: No Psychosocial: No Integumentary: No Blood Disorders: No Physical Exam Vital Signs - First Documented 11/01/22 22:58 Pulse 94 Resp 26 B/P (MAP) 132/71 (91) Pulse Ox 93 O2 Delivery Nasal Cannula O2 Flow Rate 5.00 Capillary Refill : Less Than 3 Seconds Height: '" Weight: lbs. oz. kg; 31.00 BMI Method: General Appearance: mild distress, obese Eyes: Bilateral Eye Normal Inspection, Bilateral Eye PERRL HEENT: PERRL/EOMI, normal ENT inspection Neck: non-tender, full range of motion Respiratory: chest non-tender, decreased breath sounds, other (Tachypnea) Cardiovascular: regular rate, rhythm Gastrointestinal: non tender, soft Extremities: normal range of motion, other (Right foot amputation, left lower extremity with edema and dressing) Neurologic/Psychiatric: no motor/sensory deficits, other (Keep his eyes closed but open his eyes with command and answering the question, alert and oriented x 3) Skin: normal color Progress/Results/Core Measures Suspected Sepsis SIRS Temperature: Pulse: 94 Respiratory Rate: 26 Blood Pressure 132 /71 Mean: 91 Laboratory Tests 11/01/22 22:57: Creatinine 0.72, Total Bilirubin 1.2H Results/Orders Lab Results Laboratory Tests Test 11/01/22 22:57 Range/Units Venous Blood pH 7.43 H 7.31-7.41 Venous Blood Partial Pressure CO2 36 L 40-52 MMHG Venous Blood HCO3 24 22-28 MMOL/L Sodium Level 136 135-145 MMOL/L Potassium Level 3.6 3.6-5.0 MMOL/L Chloride Level 104 98-107 MMOL/L Carbon Dioxide Level 19 L 21-32 MMOL/L Anion Gap 13 5-14 MMOL/L Blood Urea Nitrogen 19 H 7-18 MG/DL Creatinine 0.72 0.60-1.30 MG/DL Estimat Glomerular Filtration Rate 97 BUN/Creatinine Ratio 26 Glucose Level 83 70-105 MG/DL Calcium Level 7.3 L 8.5-10.1 MG/DL Corrected Calcium 9.1 8.5-10.1 MG/DL Magnesium Level 2.2 1.6-2.4 MG/DL Total Bilirubin 1.2 H 0.1-1.0 MG/DL Aspartate Amino Transf (AST/SGOT) 49 H 5-34 U/L Alanine Aminotransferase (ALT/SGPT) 43 0-55 U/L Alkaline Phosphatase 97 40-136 U/L Troponin I 0.53 *H <0.30 NG/ML Pro-B-Type Natriuretic Peptide 4037.0 H <125.0 PG/ML Total Protein 5.4 L 6.4-8.2 GM/DL Albumin 1.8 L 3.2-4.5 GM/DL My Orders Orders - WAQAR BARKER MD Cbc With Automated Diff (11/01/22 23:02) Comprehensive Metabolic Panel (11/01/22 23:02) Blood Culture (11/01/22 23:02) Urinalysis (11/01/22 23:02) Protime With Inr (11/01/22:) Partial Thromboplastin Time (11/01/22 23:02) Ed Iv/Invasive Line Start (11/01/22:02) O2 (11/01/22 23:02) Lactic Acid Analyzer (11/01/22 23:02) Magnesium (11/01/22 23:02) Monitor-Rhythm Ecg Trace Only (11/01/22 23:) Troponin I Fs (11/01/22 23:02) Ekg Tracing (11/01/22 23:02) Arterial Blood Gas (11/01/22 23:02) Albuterol Pre-Mix Nebs (Rt) (Albuterol (11/01/22 23:15) Svn Small Volume Nebulizer (11/01/22 23:02) Venous Blood Gas (11/01/22 23:09) Probnp Fs (11/01/22 23:02) Vital Signs/I&O 11/01/22 11/01/22 22:58 23:39 Pulse 94 94 Resp 26 26 B/P (MAP) 132/71 (91) 132/71 Pulse Ox 93 93 O2 Delivery Nasal Cannula Nasal Cannula O2 Flow Rate 5.00 5.00 5.00 Capillary Refill : Less Than 3 Seconds Blood Pressure Mean: 91 Progress Note : Time: 23:52 Progress Note Patient with history of COPD and currently a smoker noncompliance brought in by EMS because of shortness of breath. Patient did not want to come to the hospital and refused ABG and blood test and x-ray in ER. Patient also refused BiPAP and did not want resuscitation. Patient wanted to go home. Patient signed AGAINST MEDICAL ADVICE but refused to sign DNR form and stated" you are scared me". Patient was alert and oriented x3 but was somnolent. VBG was done and showed pH of 7.43 and PCO2 of 36 and bicarb of 24. Patient already had Solu-Medrol and DuoNeb by EMS but refused to have any more treatment in ER. Patient daughter was contacted by [employer] and she stated she does not have the power of senior trial attorney. Patient's son called and talked to him but the patient did n ot change his mind. Patient currently taking antibiotic given during his previous ER visit. VBG did not show elevation of CO2. CMP showed elevation of BNP and mild elevation of troponin that is most likely related to elevation of BNP. Patient did not want treatment in ER. No family member presented to pick the patient up and patient was transferred home by EMS. ECG Initial ECG Impression Date: Nov 01, 2022 Initial ECG Impression Time: 23:07 Initial ECG Rate: 93 Comment EKG interpreted by me. EKG at 2307 showed sinus rhythm at rate of 93, NE interval of 152 and QT of 352 and QTc of 403, QRS duration of 99, possible left atrial enlargement, T wave abnormality in anterior and inferior leads, no acute ST and T wave elevation. Departure Impression Primary Impression: Noncompliance by refusing service Disposition: 07 AGAINST MEDICAL ADVICE Condition: Unchanged Departure-Patient Inst. Decision time for Depature: 23:50 Referrals: [facility] (PCP/Family) Primary Care Physician Patient Instructions: Leaving Against Medical Advice, Shortness of Breath, Adult ED Add. Discharge Instructions: All discharge instructions reviewed with patient and/or family. Voiced understanding. WAQAR BARKER MD Nov 01, 2022 23:44
[2022-11-01 23:46] LABS: POTASSIUM 3.6 MMOL/L (3.6-5.0)
[2022-11-01 23:53] LABS: CREATININE SERUM 0.72 MG/DL (0.60-1.30)
[2022-11-01 23:56] LABS: CALCIUM 7.3 MG/DL (8.5-10.1); MAGNESIUM 2.2 MG/DL (1.6-2.4)
[2022-11-01 23:57] LABS: BILIRUBIN,TOTAL 1.2 MG/DL (0.1-1.0)
[2022-11-01 23:59] LABS: ALBUMIN 1.8 GM/DL (3.2-4.5); TOTAL PROTEIN 5.4 GM/DL (6.4-8.2)
== END 2022-11-02 01:22 | disposition left against medical advice (07) ==
LOC: EDUNIT# 22:58 → ER FS 23:00
DX: R06.02 Shortness of breath (principal); F17.200 Nicotine dependence, unspecified, uncomplicated; Z91.199 Patient's noncompliance with other medical treatment and regimen due to unspecified reason; Z28.310 Unvaccinated for COVID-19
CPT/HCPCS: 36415; 80053; 82805; 83735; 83880; 84484; 93005; 93041

== ENCOUNTER 2022-11-06 16:14 | Inpatient (IN) | payer MEDICARE ==
[~2022-11-06] VITALS: Ht 170.2 cm; Wt 95.3 kg
--- NOTE | 2022-11-06 16:24 | ED General ---
General Chief Complaint: General Problems/Pain Stated Complaint: CONFUSION History of Present Illness Date Seen by Provider: Nov 06, 2022 Time Seen by Provider: 16:18 Initial Comments PATIENT IS DNR/DNI. 72 yr M with PMH of COPD without home oxygen, coronary artery disease, hypertension, active smoker, right leg amputation, is brought in by EMS for generalized weakness. Pt's neighbors called 911 stating that he was sitting in his car in the heat, and they could not get him out. Pt has done this recently as well, and has been in the ER twice in the past couple of weeks and left AMA both times. Denies chest pain, SOB, abdominal pain, dysuria Pt is a poor historian, and is AOx3, but is not really cooperative with questioning.Pt appears disheveled and has poor hygiene. Pt lives alone. Allergies and Home Medications Allergies Coded Allergies: No Known Drug Allergies (Unverified , 06/08/19) Patient Home Medication List Home Medication List Reviewed: Yes Azithromycin (Azithromycin) 500 Mg Tablet, 500 MG PO DAILY Prescribed by: HENRY MORALES on 10/29/22 174 Levofloxacin (Levofloxacin) 500 Mg Tablet, 500 MG PO DAILY Prescribed by: BISHOP VALLEJO on 01/27/22 153 Linezolid (Linezolid) 600 Mg Tablet, 600 MG PO BID Prescribed by: BISHOP VALLEJO on 01/27/22 153 Lisinopril (Lisinopril) 20 Mg Tablet, 20 MG PO DAILY Prescribed by: BISHOP VALLEJO on 01/27/22 153 Review of Systems Review of Systems Constitutional: malaise EENTM: no symptoms reported Respiratory: no symptoms reported Cardiovascular: no symptoms reported Gastrointestinal: no symptoms reported Genitourinary: no symptoms reported Musculoskeletal: no symptoms reported Skin: no symptoms reported Psychiatric/Neurological: No Symptoms Reported Hematologic/Lymphatic: No Symptoms Reported Immunological/Allergic: no symptoms reported Past Owkrfya-Iavggn-Ofokmu Hx Patient Social History Smoking Status: Unknown if Ever Smoked Substance use?: Unable to obtain Alcohol Use?: Unable to obtain Immunizations Up To Date First/Initial COVID19 Vaccinat: 2020 Second COVID19 Vaccination Lior: 2020 Third COVID19 Vaccination Date: 2020 Seasonal Allergies Seasonal Allergies: No Past Medical History Surgery/Hospitalization HX: COPD; MO; Pneumonia Surgeries: Yes Amputation, Vasectomy Respiratory: No Cardiac: Yes Coronary Artery Disease Neurological: Yes Stroke Genitourinary: No Gastrointestinal: No Musculoskeletal: Yes Amputee Endocrine: No HEENT: No Cancer: No Psychosocial: No Integumentary: No Blood Disorders: No Physical Exam Vital Signs Vital Signs - First Documented 11/06/22 16:22 Temp 37.4 Pulse 104 Resp 34 B/P (MAP) 100/74 (83) Pulse Ox 92 O2 Delivery Nasal Cannula O2 Flow Rate 2.00 Capillary Refill : Height, Weight, BMI Height: '" Weight: lbs. oz. kg; 31.00 BMI Method: General Appearance: No Apparent Distress, Obese, Other (Patient is sweating, bedbugs and cockroaches seen on patient. Poor overall hygiene.) HEENT: Pharynx Normal, Other (Dry mucous membranes) Neck: Full Range of Motion, Normal Inspection, Non Tender, Supple Respiratory: Chest Non Tender, Lungs Clear, Normal Breath Sounds, No Accessory Muscle Use Cardiovascular: Tachycardia Gastrointestinal: Normal Bowel Sounds, Non Tender, Soft Back: No CVA Tenderness, No Vertebral Tenderness Extremity: Normal Range of Motion, Swelling (Pitting edema on left lower leg. 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 Norm as Tested Skin: Other Focused Exam Lactate Level 11/06/22 16:20: Lactic Acid Level 1.44 Lactic Acid Level Laboratory Tests Test 11/06/22 16:20 Lactic Acid Level 1.44 MMOL/L (0.50-2.00) Progress/Results/Core Measures Suspected Sepsis SIRS Temperature: Pulse: Respiratory Rate: Laboratory Tests 11/06/22 16:20: White Blood Count 20.1H Blood Pressure / Mean: 11/06/22 16:20: Lactic Acid Level 1.44 Laboratory Tests 11/06/22 16:20: Creatinine 0.88, INR Comment 1.3, Platelet Count 406H, Total Bilirubin 1.1H Results/Orders Lab Results Laboratory Tests Test 11/06/22 16:20 11/06/22 17:05 Range/Units White Blood Count 20.1 H 4.3-11.0 10^3/uL Red Blood Count 4.72 4.30-5.52 10^6/uL Hemoglobin 13.7 13.3-17.7 g/dL Hematocrit 43 40-54 % Mean Corpuscular Volume 91 80-99 fL Mean Corpuscular Hemoglobin 29 25-34 pg Mean Corpuscular Hemoglobin Concent 32 32-36 g/dL Red Cell Distribution Width 13.4 10.0-14.5 % Platelet Count 406 H 130-400 10^3/uL Mean Platelet Volume 11.0 9.0-12.2 fL Immature Granulocyte % (Auto) 1 % Neutrophils (%) (Auto) 84 H 42-75 % Lymphocytes (%) (Auto) 5 L 12-44 % Monocytes (%) (Auto) 10 0-12 % Eosinophils (%) (Auto) 0 0-10 % Basophils (%) (Auto) 0 0-10 % Neutrophils # (Auto) 16.8 H 1.8-7.8 10^3/uL Lymphocytes # (Auto) 1.0 1.0-4.0 10^3/uL Monocytes # (Auto) 2.0 H 0.0-1.0 10^3/uL Eosinophils # (Auto) 0.1 0.0-0.3 10^3/uL Basophils # (Auto) 0.1 0.0-0.1 10^3/uL Immature Granulocyte # (Auto) 0.2 H 0.0-0.1 10^3/uL Neutrophils % (Manual) 82 % Lymphocytes % (Manual) 6 % Monocytes % (Manual) 12 % Prothrombin Time 16.6 H 12.2-14.7 SEC INR Comment 1.3 0.8-1.4 Activated Partial Thromboplast Time 26 24-35 SEC Sodium Level 142 135-145 MMOL/L Potassium Level 3.9 3.6-5.0 MMOL/L Chloride Level 101 98-107 MMOL/L Carbon Dioxide Level 29 21-32 MMOL/L Anion Gap 12 5-14 MMOL/L Blood Urea Nitrogen 21 H 7-18 MG/DL Creatinine 0.88 0.60-1.30 MG/DL Estimat Glomerular Filtration Rate 91 BUN/Creatinine Ratio 24 Glucose Level 129 H 70-105 MG/DL Lactic Acid Level 1.44 0.50-2.00 MMOL/L Calcium Level 9.2 8.5-10.1 MG/DL Corrected Calcium 10.2 H 8.5-10.1 MG/DL Magnesium Level 2.5 H 1.6-2.4 MG/DL Total Bilirubin 1.1 H 0.1-1.0 MG/DL Aspartate Amino Transf (AST/SGOT) 31 5-34 U/L Alanine Aminotransferase (ALT/SGPT) 41 0-55 U/L Alkaline Phosphatase 159 H 40-136 U/L Troponin I < 0.30 <0.30 NG/ML Pro-B-Type Natriuretic Peptide 2954.0 H <125.0 PG/ML Total Protein 6.9 6.4-8.2 GM/DL Albumin 2.8 L 3.2-4.5 GM/DL Influenza Type A (RT-PCR) Not Detected Not Detecte Influenza Type B (RT-PCR) Not Detected Not Detecte SARS-CoV-2 RNA (RT-PCR) Not Detected Not Detecte Urine Color DARK YELLOW Urine Clarity CLEAR Urine pH 6.0 5-9 Urine Specific [place] 1.025 H 1.016-1.022 Urine Protein 2+ H NEGATIVE Urine Glucose (UA) TRACE H NEGATIVE Urine Ketones NEGATIVE NEGATIVE Urine Nitrite NEGATIVE NEGATIVE Urine Bilirubin 2+ H NEGATIVE Urine Urobilinogen >=8.0 < = 1.0 MG/DL Urine Leukocyte Esterase NEGATIVE NEGATIVE Urine RBC (Auto) 3+ H NEGATIVE Urine RBC 10-25 H /HPF Urine WBC 25-50 H /HPF Urine Squamous Epithelial Cells NONE /HPF Urine Crystals NONE /LPF Urine Bacteria MODERATE H /HPF Urine Casts PRESENT /LPF Urine Coarse Granular Casts 0-2 H /LPF Urine Mucus LARGE H /LPF Urine Culture Indicated YES Urine Opiates Screen NEGATIVE NEGATIVE Urine Oxycodone Screen NEGATIVE NEGATIVE Urine Methadone Screen NEGATIVE NEGATIVE Urine Propoxyphene Screen NEGATIVE NEGATIVE Urine Barbiturates Screen NEGATIVE NEGATIVE Ur Tricyclic Antidepressants Screen NEGATIVE NEGATIVE Urine Phencyclidine Screen NEGATIVE NEGATIVE Urine Amphetamines Screen NEGATIVE NEGATIVE Urine Methamphetamines Screen NEGATIVE NEGATIVE Urine Benzodiazepines Screen NEGATIVE NEGATIVE Urine Cocaine Screen NEGATIVE NEGATIVE Urine Cannabinoids Screen NEGATIVE NEGATIVE My Orders Orders - URMILA STOUT MD Continuous Ekg Monitoring (11/06/22 16:25) Ekg Tracing (11/06/22 16:25) Chest 1 View Ap/Pa Only (11/06/22 16:26) Cbc With Automated Diff (11/06/22 16:26) Comprehensive Metabolic Panel (11/06/22 16:26) Drug Screen Stat (Urine) (11/06/22 16:26) Lactic Acid Analyzer (11/06/22 16:26) Magnesium (11/06/22 16:26) Protime With Inr (11/06/22 16:26) Partial Thromboplastin Time (11/06/22 16:26) Ua Culture If Indicated (11/06/22 16:26) Influenza A And B By Pcr (11/06/22 16:26) Probnp Fs (11/06/22 16:26) Troponin I Fs (11/06/22 16:26) Covid 19 Inhouse Test (11/06/22 16:26) Straight Cath (Urinary) (11/06/22 16:27) Manual Differential (11/06/22 16:20) Ipratropium/Albuterol Inh Soln (Ipratrop (11/06/22 16:45) Svn Small Volume Nebulizer (11/06/22 16:40) Furosemide Injection (Furosemide Injec (11/06/22 17:15) Piperacillin Sodium/Tazobactam (Zosyn Vi (11/06/22 17:15) Blood Culture (11/06/22 17:13) Sputum Culture (11/06/22 17:13) Urine Culture (11/06/22 17:05) Piperacillin Sodium/Tazobactam (Zosyn Vi (11/06/22 17:27) Ns (Ivpb) 100 Ml (Sodium Chloride 0.9% 1 (11/06/22 17:27) Ed Iv/Invasive Line Start (11/06/22 17:34) Ns Iv 1000 Ml (Sodium Chloride 0.9%) (11/06/22 17:34) Creatine Kinase (11/06/22 17:59) Medications Given in ED Current Medications Medications Dose Ordered Sig/Grant Route Start Time Stop Time Status Last Admin Dose Admin Albuterol/ Ipratropium 3 ml ONCE ONCE INH 11/06/22 16:45 11/06/22 16:46 DC 11/06/22 16:53 3 ML Furosemide 40 mg ONCE ONCE IVP 11/06/22 17:15 11/06/22 17:16 UNV 11/06/22 17:35 40 MG Piperacillin Sod/ Tazobactam Sod 4.5 gm/Sodium Chloride 100 ml @ 200 mls/hr ONCE ONCE IV 11/06/22 17:15 11/06/22 17:44 UNV 11/06/22 17:34 200 MLS/HR Vital Signs/I&O 11/06/22 16:22 Temp 37.4 Pulse 104 Resp 34 B/P (MAP) 100/74 (83) Pulse Ox 92 O2 Delivery Nasal Cannula O2 Flow Rate 2.00 Capillary Refill : Progress Note : Progress Note 1. GENERALIZED WEAKNESS:HEAT EXHAUSTION: - CXR: Increased multifocal bilateral airspace opacities with consolidation in the right upper lobe concerning for infection. Superimposed edema cannot be definitively excluded. Cardiomegaly with pulmonary vascular congestion. - CBC:elevated at 20.1, due to pneumonia - CMP: Bilirubin and alk phos is elevated - Troponin undetectable - UA: Leukocyte Estrace and nitrate is negative, but RBC and WBC is positive - Duo neb treatment x1 - NS IVF 300/hr, gentle hydration - Pt will need admission . DIscussed with Dr. Dougherty, and Dr. Hein. Excepted for admission 2. PNEUMONIA - CXR: - CBC: WBC is elevated: 20.1 with left shift - Lactic acid normal - COVID test and Flu Test is negative - Blood cultures sent - Zosyn iv STAT 3. ACUTE CHF EXACERBATION/ PULMONARY EDEMA: - BNP is elevated: 2,954 - CXR shows cardiomegally - Lasix 40mg iv STAT ECG Initial ECG Impression Date: Nov 06, 2022 Initial ECG Impression Time: 16:39 Initial ECG Rate: 103 Initial ECG Rhythm: S.Tach Initial ECG Impression: Nonspecific Changes Diagnostic Imaging Diagonstic Imaging: Xray Plain Films/CT/US/NM/MRI: chest Comments [facility], [place] NAME: GIAN ROPER [facility] REC#: [id number] PT STATUS: REG ER : 1950 PHYSICIAN: URMILA STOUT MD ADMIT DATE: 11/06/22/ER FS Signed Date of Exam:11/06/22 CHEST 1 VIEW AP/PA ONLY CHEST 1 VIEW AP/PA ONLY INDICATION: generalized weakness. COMPARISON: Chest radiograph 10/29/2022. FINDINGS: Lungs: Normal lung volume. Increased multifocal bilateral airspace opacities. Pleura: No pleural effusion or pneumothorax. Heart and Mediastinum: Cardiomegaly. Pulmonary vascular congestion. Osseous Structures and Soft Tissues: No acute osseous abnormality. Normal soft tissues. IMPRESSION: Increased multifocal bilateral airspace opacities with consolidation in the right upper lobe concerning for infection. Superimposed edema cannot be definitively excluded. Cardiomegaly with pulmonary vascular congestion. Dictated by: Dictated on workstation # [id number] Dict: 11/06/221706 Trans: 11/06/221707 [facility] [id number] Interpreted by: CLINTON FREITAS DO Electronically signed by: CLINTON FREITAS DO 11/06/221707 Departure Communication (Admissions) Time/Spoke to Admitting Phy: 18:[address] Hein, and resident: Dr. Dougherty. Excepted for admission Impression Primary Impression: Generalized weakness Additional Impressions: Heat exhaustion Qualified Codes: T67.5XXA - Heat exhaustion, unspecified, initial encounter Community acquired pneumonia Qualified Codes: J18.9 - Pneumonia, unspecified organism Acute exacerbation of CHF (congestive heart failure) Qualified Codes: I50.9 - Heart failure, unspecified Pulmonary edema Qualified Codes: J81.0 - Acute pulmonary edema Disposition: 30 STILL A PATIENT Condition: Stable Admissions Decision to Admit Reason: Admit from ER (General) Decision to Admit/Date: Nov 06, 2022 Time/Decision to Admit Time: 17:30 Transfer Method of Transfer: EMS Departure-Patient Inst. Referrals: [facility] (PCP/Family) Primary Care Physician URMILA STOUT MD Nov 06, 2022 16:24
[2022-11-06 16:32] LABS: BASOPHILS # (AUTO) 0.1 10^3/uL (0.0-0.1); BASOPHILS % (AUTO) 0 % (0-10); EOSINOPHILS # (AUTO) 0.1 10^3/uL (0.0-0.3); EOSINOPHILS % (AUTO) 0 % (0-10); HEMATOCRIT 43 % (40-54); HEMOGLOBIN 13.7 g/dL (13.3-17.7); LYMPHOCYTES % (AUTO) 5 % (12-44); MEAN CORPUSCULAR HEMOGLOBIN 29 pg (25-34); MEAN CORPUSCULAR HGB CONC 32 g/dL (32-36); MEAN CORPUSCULAR VOLUME 91 fL (80-99); MONOCYTES % (AUTO) 10 % (0-12); NEUTROPHILS # (AUTO) 16.8 10^3/uL (1.8-7.8); NEUTROPHILS % (AUTO) 84 % (42-75); PLATELET COUNT 406 10^3/uL (130-400); WHITE BLOOD COUNT 20.1 10^3/uL (4.3-11.0)
[2022-11-06 16:42] LABS: INR 1.3 (0.8-1.4); PROTHROMBIN TIME PATIENT 16.6 SEC (12.2-14.7)
[2022-11-06] MEDS ORDERED: RT-Ipratropium/Albuterol NEB 3 ML VIAL INH ONE (16:45)
[2022-11-06 16:50] LABS: ALANINE AMINOTRANSFERASE 41 U/L (0-55); ALBUMIN 2.8 GM/DL (3.2-4.5); ALKALINE PHOSPHATASE 159 U/L (40-136); BILIRUBIN,TOTAL 1.1 MG/DL (0.1-1.0); BUN/CREATININE RATIO 24; CALCIUM 9.2 MG/DL (8.5-10.1); CARBON DIOXIDE 29 MMOL/L (21-32); CHLORIDE 101 MMOL/L (98-107); CREATININE SERUM 0.88 MG/DL (0.60-1.30); GFR ESTIMATED 91; GLUCOSE 129 MG/DL (70-105); MAGNESIUM 2.5 MG/DL (1.6-2.4); POTASSIUM 3.9 MMOL/L (3.6-5.0); SODIUM 142 MMOL/L (135-145); TOTAL PROTEIN 6.9 GM/DL (6.4-8.2)
--- NOTE | 2022-11-06 17:09 | Diagnostic Imaging Report ---
CHEST 1 VIEW AP/PA ONLY INDICATION: generalized weakness. COMPARISON: Chest radiograph 10/29/2022. FINDINGS: Lungs: Normal lung volume. Increased multifocal bilateral airspace opacities. Pleura: No pleural effusion or pneumothorax. Heart and Mediastinum: Cardiomegaly. Pulmonary vascular congestion. Osseous Structures and Soft Tissues: No acute osseous abnormality. Normal soft tissues. IMPRESSION: Increased multifocal bilateral airspace opacities with consolidation in the right upper lobe concerning for infection. Superimposed edema cannot be definitively excluded. Cardiomegaly with pulmonary vascular congestion. Dictated by: Dictated on workstation # [id number]
[2022-11-06 17:13] LABS: CLARITY,URINE CLEAR; GLUCOSE, URINE (UA) TRACE (NEGATIVE); KETONES,URINE NEGATIVE (NEGATIVE); LEUKOCYTE ESTERASE ,URINE NEGATIVE (NEGATIVE); NITRITE,URINE NEGATIVE (NEGATIVE); PROTEIN,URINE 2+ (NEGATIVE)
[2022-11-06] MEDS ORDERED: FUROSEMIDE INJECTION 40 MG/4 ML VIAL IVP ONE (17:15)
[2022-11-06] MEDS ORDERED: PIPERACILLIN/Tazobactam 4.5 GM in NS (IVPB) 100 ML 100 ML IV ONE (17:15)
[2022-11-06 17:19] LABS: BACTERIA,URINE MODERATE /HPF; BILIRUBIN,URINE 2+ (NEGATIVE); COLOR,URINE DARK YELLOW; WBC,URINE 25-50 /HPF
[2022-11-06 17:22] LABS: AMPHETAMINE SCREEN, URINE NEGATIVE (NEGATIVE); BARBITURATE SCREEN URINE NEGATIVE (NEGATIVE); BENZODIAZEPINES SCREEN URINE NEGATIVE (NEGATIVE); CANNABINOID SCREEN, URINE NEGATIVE (NEGATIVE); COCAINE SCREEN URINE NEGATIVE (NEGATIVE); METHADONE STAT NEGATIVE (NEGATIVE); OPIATE SCREEN URINE NEGATIVE (NEGATIVE); OXYCODONE STAT NEGATIVE (NEGATIVE); PROPOXYPHENE STAT NEGATIVE (NEGATIVE); TRICYCLIC ANTIDEPRESSANTS SCRE NEGATIVE (NEGATIVE)
[2022-11-06 17:26] LABS: LYMPHOCYTES % (MANUAL) 6 %; MONOCYTES % (MANUAL) 12 %; NEUTROPHILS % (MANUAL) 82 %
[2022-11-06] MEDS ORDERED: NS (IVPB) 100 ML 100 ML ONE (17:27)
[2022-11-06] MEDS ORDERED: FUROSEMIDE INJECTION 40 MG/4 ML VIAL ONE (17:27)
[2022-11-06] MEDS ORDERED: NS IV 1000 ML 1,000 ML IV STA (17:34)
[2022-11-06 20:15] VITALS: BP 119/74
[2022-11-06] MEDS ORDERED: ONDANSETRON 4 MG ORAL DISSOLVE TABLET PO PRN (20:15)
[2022-11-06] MEDS ORDERED: ACETAMINOPHEN 325 MG TABLET PO PRN (20:15)
[2022-11-06] MEDS ORDERED: MELATONIN 3 MG TABLET PO PRN (20:15)
[2022-11-06] MEDS ORDERED: ONDANSETRON INJECTION 4 MG/2 ML (SDV) IV PRN (20:15)
[2022-11-06] MEDS: ENOXAPARIN 40 MG/0.4 ML SYRINGE SC SCH (21:15)
[2022-11-06] MEDS: PIPERACILLIN/Tazobactam 4.5 GM in NS (IVPB) 100 ML 100 ML IV SCH (21:15)
[2022-11-07] VITALS (7 sets, daily range): BP systolic 118–142; BP diastolic 65–72
[2022-11-07] MEDS: PIPERACILLIN/Tazobactam 4.5 GM in NS (IVPB) 100 ML 100 ML IV SCH ×3 (04:46→20:12)
[2022-11-07 06:04] LABS: BASOPHILS # (AUTO) 0.1 10^3/uL (0.0-0.1); BASOPHILS % (AUTO) 0 % (0-10); EOSINOPHILS # (AUTO) 0.1 10^3/uL (0.0-0.3); EOSINOPHILS % (AUTO) 1 % (0-10); HEMATOCRIT 43 % (40-54); HEMOGLOBIN 13.4 g/dL (13.3-17.7); LYMPHOCYTES % (AUTO) 5 % (12-44); MEAN CORPUSCULAR HEMOGLOBIN 29 pg (25-34); MEAN CORPUSCULAR HGB CONC 32 g/dL (32-36); MEAN CORPUSCULAR VOLUME 92 fL (80-99); MEAN PLATELET VOLUME 11.1 fL (9.0-12.2); MONOCYTES # (AUTO) 2.2 10^3/uL (0.0-1.0); MONOCYTES % (AUTO) 10 % (0-12); NEUTROPHILS # (AUTO) 18.1 10^3/uL (1.8-7.8); NEUTROPHILS % (AUTO) 83 % (42-75); PLATELET COUNT 364 10^3/uL (130-400); WHITE BLOOD COUNT 21.6 10^3/uL (4.3-11.0)
[2022-11-07 06:26] LABS: ALBUMIN 2.8 GM/DL (3.2-4.5); BILIRUBIN,TOTAL 1.2 MG/DL (0.1-1.0); CREATININE SERUM 0.94 MG/DL (0.60-1.30); POTASSIUM 3.5 MMOL/L (3.6-5.0); TOTAL PROTEIN 6.9 GM/DL (6.4-8.2)
--- NOTE | 2022-11-07 06:46 | History & Physical ---
MARCELA HAMM MD 11/07/22 0646: HPI History of Present Illness: Pt is a 72 yo male with a medical history significant for COPD without home oxygen, coronary artery disease, hypertension, active smoker, right leg amputation, is brought in by EMS for generalized weakness. Pt's neighbors called 911 stating that he was sitting in his car in the heat, and they could not get him out. Pt has done this recently as well, and has been in the ER twice in the past couple of weeks and left AMA both times. Denies chest pain, SOB, abdominal pain, dysuria. Pt is a poor historian, and is AOx3, but is not really cooperative with questioning. Pt appears disheveled and has poor hygiene. Pt lives alone. In the ED, Pts EKG showed non-specific ST changes, elevated troponin overnight, and CXR that showed consolidation in the right upper lobe concerning for infection and cardiomegaly, WBCs elevated. Pt was admitted to Med/Surg service for IV antibiotic therapy. Source: patient, old records, other (ED physician) Date seen by provider: Nov 07, 2022 Time Seen by Provider: 06:30 Attending Physician [place] PCP Admitting Physician: Zurdo Barnes MD Attending Physician: Zurdo Barnes MD Consult Date of Admission Nov 06, 2022 at 19:50 Home Medications Home Medications Reviewed patient Home Medication Reconciliation performed by pharmacy medication reconciliations mri technician and/or nursing. Patients Allergies have been reviewed. Allergies Coded Allergies: No Known Drug Allergies (Unverified , 06/08/19) XET-[id number]-Xadnjg Hx Patient Social History Smoking Status: Unknown if Ever Smoked 2nd Hand Smoke Exposure: Yes Recent Hopitalizations: No Alcohol Use?: No Tobacco type used: Cigarettes Immunizations Up To Date Influenza Vaccine Up-to-Date: No; Not Current First/Initial COVID19 Vaccinat: 2020 Second COVID19 Vaccination Lior: 2020 Third COVID19 Vaccination Date: 2020 Review of Systems ([facility]) Constitutional: fever, weakness EENTM: no symptoms reported Respiratory: cough Cardiovascular: no symptoms reported Gastrointestinal: no symptoms reported Genitourinary: no symptoms reported Musculoskeletal: no symptoms reported Skin: no symptoms reported Psychiatric/Neurological: No Symptoms Reported Physical Exam-([facility]) Physical Exam Vital Signs VS - Last 72 Hours, by Label 11/06/22 11/06/22 11/06/22 11/06/22 16:22 19:10 20:15 20:15 Temp 37.4 37.2 36.4 Pulse 104 89 88 Resp 34 31 18 B/P (MAP) 100/74 (83) 134/53 119/74 (89) Pulse Ox 92 95 92 O2 Delivery Nasal Cannula Nasal Cannula Nasal Cannula Nasal Cannula O2 Flow Rate 2.00 2.00 2.00 2.00 2.00 11/06/22 11/07/22 11/07/22 11/07/22 21:37 00:03 00:59 04:36 Temp 35.5 36.4 Pulse 87 80 78 82 Resp 26 24 B/P (MAP) 118/69 (85) 135/72 (93) Pulse Ox 91 91 O2 Delivery Nasal Cannula Nasal Cannula O2 Flow Rate 2.50 2.50 11/07/22 11/07/22 11/07/22 11/07/22 07:00 07:30 08:14 11:20 Temp 36.6 36.1 Pulse 90 72 81 Resp 20 20 B/P (MAP) 142/72 (95) 131/71 (91) Pulse Ox 90 90 91 O2 Delivery Nasal Cannula Nasal Cannula Nasal Cannula O2 Flow Rate 2.00 2.00 2.00 11/07/22 11/07/22 12:26 14:35 Pulse 77 O2 Delivery Nasal Cannula O2 Flow Rate 2.00 Capillary Refill : Less Than 3 Seconds General Appearance: no apparent distress Neck: full range of motion Respiratory: rhonchi Cardiovascular: regular rate, rhythm Gastrointestinal: non tender Extremities: other (R BKA) Neurologic/Psychiatric: alert Skin: normal color Assessment/Plan Assessment/Plan Admission Dx pneumonia Admission Status: Observation Reason for Inpatient Admission: Pneumonia (1) Pneumonia Status: Acute Assessment & Plan: - CXR demontrates RUL consolidation - Hypoxia PLAN: - Continue Zosyn - O2 supplementaton as needed - Trend WBCs - Tylenol for fever Qualifiers: Qualified Codes: J18.9 - Pneumonia, unspecified organism (2) Hypoxia Status: Acute Assessment & Plan: - Pt with hypoxia, not on home oxygen - H/o COPD PLAN: - Supplemental O2 as needed (3) Generalized weakness Status: Acute Assessment & Plan: - Heat exhaustion, dehydration PLAN: - Treat PNA - Rehydrate as able - Diet (4) Heat exhaustion Status: Acute Assessment & Plan: - Pt found in his car without being on in the middle of the day in high temperature - Unknown when Pt ate or drank water last PLAN: - Rehydrate as able - Fan cooling (5) Dehydration Status: Acute Assessment & Plan: - Likely due to heat exhaustion and decreased PO PLAN: - See above (6) Elevated troponin I level Status: Acute Assessment & Plan: - Troponin uptrend, <0.3 --> 0.318 PLAN: - Pt placed on telemetry overnight for elevated troponin - Monitor for cardiac symptoms Addendum Physician Addendum Progress 12:36 ZURDO BARNES MD 11/07/22 1239: Home Medications Allergies Coded Allergies: No Known Drug Allergies (Unverified , 06/08/19) Addendum Physician Addendum Addendum Patient was evaluated at 9:00 AM. He has a long history of noncompliance which led to right lower extremity amputation last year for nonhealing leg wound but he did not follow up with care on. We discussed the serious nature of his underlying pneumonia and he stated that he definitively did not want any form of CPR mechanical ventilation or resuscitation measures should his condition worsen. DNR/DNI status initiated. Prognosis poor. While technically a community-acquired pneumonia considering past hospitalizations and squalid l iving conditions we will continue Zosyn initiated last night by the emergency room physician. Progress 12:36 MARCELA HAMM MD Nov 07, 2022 06:46 ZURDO BARNES MD Nov 07, 2022 12:39
[2022-11-07] MEDS: ENOXAPARIN 40 MG/0.4 ML SYRINGE SC SCH (20:12)
[2022-11-08] VITALS (7 sets, daily range): BP systolic 100–142; BP diastolic 59–80
[2022-11-08 04:16] LABS: EOSINOPHILS # (AUTO) 0.1 10^3/uL (0.0-0.3); EOSINOPHILS % (AUTO) 1 % (0-10); HEMOGLOBIN 14.3 g/dL (13.3-17.7)
[2022-11-08 04:18] LABS: BASOPHILS # (AUTO) 0.1 10^3/uL (0.0-0.1); BASOPHILS % (AUTO) 0 % (0-10); HEMATOCRIT 46 % (40-54); LYMPHOCYTES # (AUTO) 0.9 10^3/uL (1.0-4.0); LYMPHOCYTES % (AUTO) 4 % (12-44); MEAN CORPUSCULAR HEMOGLOBIN 29 pg (25-34); MEAN CORPUSCULAR HGB CONC 31 g/dL (32-36); MEAN CORPUSCULAR VOLUME 93 fL (80-99); MEAN PLATELET VOLUME 11.8 fL (9.0-12.2); MONOCYTES # (AUTO) 1.8 10^3/uL (0.0-1.0); MONOCYTES % (AUTO) 8 % (0-12); NEUTROPHILS # (AUTO) 19.4 10^3/uL (1.8-7.8); NEUTROPHILS % (AUTO) 86 % (42-75); PLATELET COUNT 358 10^3/uL (130-400); WHITE BLOOD COUNT 22.5 10^3/uL (4.3-11.0)
[2022-11-08 04:27] LABS: ALBUMIN 2.6 GM/DL (3.2-4.5)
[2022-11-08 04:28] LABS: CALCIUM 8.9 MG/DL (8.5-10.1)
[2022-11-08 04:29] LABS: TOTAL PROTEIN 6.4 GM/DL (6.4-8.2)
[2022-11-08 04:31] LABS: BILIRUBIN,TOTAL 0.8 MG/DL (0.1-1.0)
[2022-11-08 04:33] LABS: CREATININE SERUM 0.81 MG/DL (0.60-1.30)
[2022-11-08] MEDS: RT-ALBUTEROL SULF 2.5 MG/3 ML PRE-MIX VIAL INH PRN (04:51)
[2022-11-08] MEDS: PIPERACILLIN/Tazobactam 4.5 GM in NS (IVPB) 100 ML 100 ML IV SCH ×3 (04:51→20:18)
[2022-11-08] MEDS: RT-ALBUTEROL SULF 2.5 MG/3 ML PRE-MIX VIAL INH SCH ×5 (07:07→21:48)
[2022-11-08] MEDS: NICOTINE 21 MG PATCH TD SCH (09:16)
[2022-11-08 10:24] LABS: CHOLESTEROL 102 MG/DL (< 200); HDL CHOLESTEROL 17 MG/DL (40-60); TRIGLYCERIDES 97 MG/DL (<150); VLDL CHOLESTEROL 19 MG/DL (5-40)
[2022-11-08] MEDS ORDERED: ASPIRIN 81 MG CHEWABLE TABLET PO NR (10:30)
[2022-11-08 11:01] LABS: ABG BASE EXCESS 10.6 MMOL/L (-2.5-2.5); ABG OXYGEN SATURATION 83 % (94-100); ABG PCO2 63 MMHG (35-45); ABG PH 7.38 (7.37-7.43); ABG PO2 53 MMHG (79-93)
[2022-11-08 11:02] LABS: ALLENS TEST POSITIVE
[2022-11-08 11:03] LABS: INSPIRED O2 2 L; PATIENT TEMP 37; VENTILATOR NO
--- NOTE | 2022-11-08 11:19 | Progress Note - Hospitalist ---
ZINATSERING 11/08/22 1118: Subjective HPI/CC On Admission Date Seen by Provider: Nov 08, 2022 Time Seen by Provider: 10:00 CC: community acquired pneumonia. Subjective/Events-last exam Patient still denied any chest or abdominal pain when I saw him and was not eating his breakfast. He has had no complaints of nausea or vomiting, but had a mild headache and seemed feverish. Patient was slightly confused but still A&O x3. His vitals were normal and he was able to hold conversation with slight delay. He said he felt better than when he was in the ER but still had difficulty breathing and has to put in a lot of effort to just sit up in bed showing he was still generally weak. Review of Systems General: No Chills, No Night Sweats; Fatigue, Malaise; No Appetite HEENT: Head Aches (mild headache ); No Visual Changes, No Eye Pain Pulmonary: Cough Cardiovascular: No: Chest Pain, Palpitations, Orthopnea Gastrointestinal: No: Nausea, Vomiting, Abdominal Pain Genitourinary: No Dysuria, No Frequency, No Incontinence, No Hematuria Focused Exam Lactate Level 11/06/22 16:20: Lactic Acid Level 1.44 Objective Exam Vital Signs Vital Signs Date Time Temp Pulse Resp B/P (MAP) Pulse Ox O2 Delivery O2 Flow Rate FiO2 11/08/22 10:42 91 OxyMask 2.00 11/08/22 08:03 36.1 81 20 120/62 (81) 11/08/22 04:04 28 Capillary Refill : Less Than 3 Seconds General Appearance: Chronically ill, Mild Distress, Obese Respiratory: Chest Non Tender, No Respiratory Distress, Crackles, Decreased Breath Sounds Cardiovascular: Regular Rate, Rhythm Gastrointestinal: No Pulsatile Mass, Non Tender Results/Procedures Lab Laboratory Tests 11/08/22 04:00 Patient resulted labs reviewed. Assessment/Plan Assessment and Plan Assess & Plan/Chief Complaint Asessment: Sepsis 2/2 pneumonia encephalopathy generalized weakness elevated troponin possible NSTEMI hypoxia- resolved COPD CAD pulmonary vascular congestion HTN smoking hx Plan: Continue IV antiobiotics F/U chest X-ray and ABG monitor cardiac symptoms SHIRLEY RUTHERFORD DO 11/09/22 0450: Supervisory-Addendum Brief Verification & Attestation Participated in pt care: history, MDM, physical Personally performed: exam, history, MDM, supervision of care Care discussed with: Medical Student Procedures: n/a Results interpretation: Verified all documentation Verification and Attestation of Medical Student E/M Service A medical student performed and documented this service in my presence. I reviewed and verified all information documented by the medical student and made modifications to such information, when appropriate. I personally performed the physical exam and medical decision making. Shirley Rutherford, Nov 09, 2022,04:49 SCHWARTZ Nov 08, 2022 11:18 SHIRLEY RUTHERFORD DO Nov 09, 2022 04:50
--- NOTE | 2022-11-08 11:56 | Wound Care Assessment ---
Wound Care Assessment Date Seen by Provider: Nov 08, 2022 Time Seen by Provider: 11:51 Chief Complaint Wraps to bilateral legs with h/o chronic ulcers HPI This 72 year old gentleman was admitted to the hospital after his neighbors called for assistance after finding him in his vehicle on a very hot day and being inable to get him out on their own. This is not out of character for Arie. We had him in care for months last fall and he did not have air or heat in his house and frequently would spend most of his day in his vehicle or at a local gas station. He has a long h/o PAD and refused vascular intervention in the past. He struggles with severe lymphedema (much improved today with elevation and diuresis), venous stasis changes, tobaccoism (1ppd), PAD, PEM , CAD and COPD. When I last saw him, he was unable to continue care with our office due to cost of transportation. He was getting his dressing changed twice weekly at his PCP's office. Today he notes that it has been >1 week since his dressings were changed but could not give me more details. Upon removal of his KIANA wraps today (and underlying kerlix), there are no open wounds. He does have flaking/crusting of skin but in general his skin integrity looks greatly improved from the last time I saw Arie. He could use a good bath to improve his hygiene and continued elevation/diuresis. Past Medical History: Admits Heart Disease, Admits Peripheral Artery Disease Smoking Status: Unknown if Ever Smoked Review of Systems General: Fatigue Pulmonary: Dyspnea Cardiovascular: Edema Neurological: Weakness, Other (Poor historian) Exam Vital Signs Date Time Temp Pulse Resp B/P (MAP) Pulse Ox O2 Delivery O2 Flow Rate FiO2 11/08/22 10:42 91 OxyMask 2.00 11/08/22 08:03 36.1 81 20 120/62 (81) 11/08/22 04:04 28 Capillary Refill : Less Than 3 Seconds General Appearance: moderate distress (SOA with conversation), obese HEENT: other (Normal hearing) Neck: full range of motion Respiratory: accessory muscle use Extremities: pedal edema Neurologic/Psychiatric: alert, normal mood/affect, other (poor historian) Skin: normal color, warm/dry Amputation of right foot Results Laboratory Tests 11/08/22 04:00: White Blood Count 22.5H, Red Blood Count 4.91, Hemoglobin 14.3, Hematocrit 46, Mean Corpuscular Volume 93, Mean Corpuscular Hemoglobin 29, Mean Corpuscular Hemoglobin Concent 31L, Red Cell Distribution Width 13.6, Platelet Count 358, Mean Platelet Volume 11.8, Immature Granulocyte % (Auto) 1, Neutrophils (%) (Auto) 86H, Lymphocytes (%) (Auto) 4L, Monocytes (%) (Auto) 8, Eosinophils (%) (Auto) 1, Basophils (%) (Auto) 0, Neutrophils # (Auto) 19.4H, Lymphocytes # (Auto) 0.9L, Monocytes # (Auto) 1.8H, Eosinophils # (Auto) 0.1, Basophils # (Au to) 0.1, Immature Granulocyte # (Auto) 0.2H, Percent Immature Platelet Fraction 12.1H, Sodium Level 140, Potassium Level 4.0, Chloride Level 99, Carbon Dioxide Level 30, Anion Gap 11, Blood Urea Nitrogen 19H, Creatinine 0.81, Estimat Glomerular Filtration Rate 94, BUN/Creatinine Ratio 23, Glucose Level 106H, Calcium Level 8.9, Corrected Calcium 10.0, Total Bilirubin 0.8, Aspartate Amino Transf (AST/SGOT) 25, Alanine Aminotransferase (ALT/SGPT) 29, Alkaline Phosphatase 114, Troponin I 0.161H, Total Protein 6.4, Albumin 2.6L, Triglycerides Level 97, Cholesterol Level 102, LDL Cholesterol Direct 72, VLDL Cholesterol 19, HDL Cholesterol 17L 11/08/22 10:42: Blood Gas Puncture Site LEFT RADIAL, Blood Gas Patient Temperature 37, Arterial Blood pH 7.38, Arterial Blood Partial Pressure CO2 63H, Arterial Blood Partial Pressure O2 53L, Arterial Blood HCO3 36H, Arterial Blood Total CO2 38.0H, Arterial Blood Oxygen Saturation 83L, Arterial Blood Base Excess 10.6H, Telly Test POSITIVE, Blood Gas Ventilator Setting NO, Blood Gas Inspired Oxygen 2 L Microbiology 11/06/22 Urine Culture - Preliminary, Resulted NO GROWTH 11/06/22 Blood Culture - Preliminary, Resulted No growth Microbiology 11/06/22 Urine Culture - Preliminary, Resulted NO GROWTH 11/06/22 Blood Culture - Preliminary, Resulted No growth 11/06/22 Blood Culture - Preliminary, Resulted No growth Assessment/Plan/Dx Assessment: 1. Chronic lower extremity edema 2. Non-compliance in medical care 3. Poor hygiene and housing concerns Plan: 1. Bath legs and leave open to air and elevate as able ELIZ JANSEN MD Nov 08, 2022 11:56
--- NOTE | 2022-11-08 11:59 | Consultation-Cardiology ---
HPI-Cardiology Cardiology Consultation Date of Consultation 11/08/22 Date of Admission Time Seen by Provider: 06:30 Indication: elevated troponin HPI Pt is a 72 yo male with a medical history significant for COPD, refusing home oxygen, hypertension, active smoker, right leg amputation, is brought in by EMS for generalized weakness. Pt's neighbors called 911 stating that he was sitting in his car in the heat, and they could not get him out. Pt has done this recently as well, and has been in the ER twice in the past couple of weeks and left AMA both times. Denies chest pain, reporting some shortness of breath. Pt is a poor historian, and is AOx3, but is not really cooperative with questioning. Patient dx with pneumonia, hypoxemia and admitted, started on a ntibiotics. Noted to have elevated BNP and minimally elevated troponin. Home Medications & Allergies Allergies: Coded Allergies: No Known Drug Allergies (Unverified , 06/08/19) Home Medication List Reviewed: Yes PYQ-Fomtvr-Mhupon Hx Patient Social History Smoking Status: Unknown if Ever Smoked Type Used: Cigarettes 2nd Hand Smoke Exposure: Yes Recent Hopitalizations: No Alcohol Use?: No Past Medical History COPD, medical noncompliance Review of Systems-General Review of Systems Constitutional: fever, weakness EENTM: no symptoms reported Respiratory: see HPI, cough, dyspnea on exertion Cardiovascular: no symptoms reported, see HPI Gastrointestinal: no symptoms reported Genitourinary: no symptoms reported Musculoskeletal: no symptoms reported Skin: no symptoms reported Psychiatric/Neurological: No Symptoms Reported Reviewed Test Results Reviewed Test Results Lab Laboratory Tests 11/08/22 04:00: White Blood Count 22.5H, Red Blood Count 4.91, Hemoglobin 14.3, Hematocrit 46, Mean Corpuscular Volume 93, Mean Corpuscular Hemoglobin 29, Mean Corpuscular Hemoglobin Concent 31L, Red Cell Distribution Width 13.6, Platelet Count 358, Mean Platelet Volume 11.8, Immature Granulocyte % (Auto) 1, Neutrophils (%) (Auto) 86H, Lymphocytes (%) (Auto) 4L, Monocytes (%) (Auto) 8, Eosinophils (%) (Auto) 1, Basophils (%) (Auto) 0, Neutrophils # (Auto) 19.4H, Lymphocytes # (Auto) 0.9L, Monocytes # (Auto) 1.8H, Eosinophils # (Auto) 0.1, Basophils # (Auto) 0.1, Immature Granulocyte # (Auto) 0.2H, Percent Immature Platelet Fraction 12.1H, Sodium Level 140, Potassium Level 4.0, Chloride Level 99, Carbon Dioxide Level 30, Anion Gap 11, Blood Urea Nitrogen 19H, Creatinine 0.81, Estimat Glomerular Filtration Rate 94, BUN/Creatinine Ratio 23, Glucose Level 106H, Calcium Level 8.9, Corrected Calcium 10.0, Total Bilirubin 0.8, Aspartate Amino Transf (AST/SGOT) 25, Alanine Aminotransferase (ALT/SGPT) 29, Alkaline Phosphatase 114, Troponin I 0.161H, Total Protein 6.4, Albumin 2.6L, Triglycerides Level 97, Cholesterol Level 102, LDL Cholesterol Direct 72, VLDL Cholesterol 19, HDL Cholesterol 17L 11/08/22 10:42: Blood Gas Puncture Site LEFT RADIAL, Blood Gas Patient Temperature 37, Arterial Blood pH 7.38, Arterial Blood Partial Pressure CO2 63H, Arterial Blood Partial Pressure O2 53L, Arterial Blood HCO3 36H, Arterial Blood Total CO2 38.0H, A rterial Blood Oxygen Saturation 83L, Arterial Blood Base Excess 10.6H, Telly Test POSITIVE, Blood Gas Ventilator Setting NO, Blood Gas Inspired Oxygen 2 L Microbiology 11/06/22 Urine Culture - Preliminary, Resulted NO GROWTH 11/06/22 Blood Culture - Preliminary, Resulted No growth Physical Exam Physical Exam Vital Signs Vital Signs - First Documented 11/06/22 11/08/22 16:22 04:04 Temp 37.4 Pulse 104 Resp 34 B/P (MAP) 100/74 (83) Pulse Ox 92 O2 Delivery Nasal Cannula O2 Flow Rate 2.00 FiO2 28 Capillary Refill : Less Than 3 Seconds Height, Weight, BMI Height: '" Weight: lbs. oz. kg; 31.00 BMI Method: General Appearance: No Apparent Distress, Obese, Other (Patient is sweating, bedbugs and cockroaches seen on patient. Poor overall hygiene.) HEENT: Pharynx Normal, Other (Dry mucous membranes) Neck: Full Range of Motion, Normal Inspection, Non Tender, Supple Respiratory: Crackles, Rhonci Cardiovascular: Tachycardia Gastrointestinal: Normal Bowel Sounds, Non Tender, Soft Back: No CVA Tenderness, No Vertebral Tenderness Extremity: Normal Range of Motion, Swelling (Pitting edema on left lower leg. 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 Elevated troponin, minimally elevated troponin, trending down. EKG showing no acute ST changes. Likely type II OR secondary to hypoxemia. Will continue with medical management. Elevated BNP, I will evaluate 2D Echo Heat exhaustion, improved. Dehydration, received IVF Hx of right foot amputation secondary to nonhealing wound and medical noncompliance Medical noncompliance Poor hygeine Thank you for allowing us to participate in the management of Mr. Guthrie. This is Fuentes Bonilla PA-C, as a scribe for Dr. Sheridan. Patient was seen and evaluated at bedside, I interviewed and examined the patient, discussed with Fuentes the management plan and agree with the current scribed note Patient has underlying pneumonia, was unresponsive, had elevation in troponin, probably type II myocardial infarction secondary to hypoxemia Underlying coronary artery disease cannot be excluded, conservative management is recommended We will evaluate 2D echo, continue with IV fluid Monitor blood pressure. FUENTES NOVOA Nov 08, 2022 11:59 KARINA SHERIDAN MD Nov 08, 2022 13:00
--- NOTE | 2022-11-08 15:06 | Diagnostic Imaging Report ---
Indication: Hypoxia. Compared: 11/06/2022 Findings: 5 lobe infiltrates greatest in the right upper and left lower lobes have progressed. Heart size is mildly enlarged. There do appear to be small pleural effusions likely increased at least on the right. Impression: Worsened pulmonary opacities favored to reflect increased pneumonia with increased heart size and a small pleural effusions. Dictated by: Dictated on workstation # [id number]
[2022-11-08] MEDS: ENOXAPARIN 40 MG/0.4 ML SYRINGE SC SCH (20:17)
[2022-11-09] MEDS: RT-ALBUTEROL SULF 2.5 MG/3 ML PRE-MIX VIAL INH SCH ×6 (02:55→22:16)
[2022-11-09 03:49] VITALS: BP 120/68
[2022-11-09] MEDS: PIPERACILLIN/Tazobactam 4.5 GM in NS (IVPB) 100 ML 100 ML IV SCH ×3 (05:08→20:54)
[2022-11-09 05:31] LABS: BASOPHILS # (AUTO) 0.1 10^3/uL (0.0-0.1); BASOPHILS % (AUTO) 0 % (0-10); EOSINOPHILS # (AUTO) 0.1 10^3/uL (0.0-0.3); EOSINOPHILS % (AUTO) 1 % (0-10); HEMATOCRIT 45 % (40-54); LYMPHOCYTES % (AUTO) 4 % (12-44); MEAN CORPUSCULAR HEMOGLOBIN 29 pg (25-34); MEAN CORPUSCULAR HGB CONC 31 g/dL (32-36); MEAN CORPUSCULAR VOLUME 92 fL (80-99); MEAN PLATELET VOLUME 11.6 fL (9.0-12.2); MONOCYTES # (AUTO) 2.2 10^3/uL (0.0-1.0); MONOCYTES % (AUTO) 9 % (0-12); NEUTROPHILS # (AUTO) 22.4 10^3/uL (1.8-7.8); NEUTROPHILS % (AUTO) 86 % (42-75); PLATELET COUNT 375 10^3/uL (130-400); WHITE BLOOD COUNT 26.2 10^3/uL (4.3-11.0)
[2022-11-09 05:52] LABS: ALBUMIN 2.6 GM/DL (3.2-4.5); BILIRUBIN,TOTAL 0.8 MG/DL (0.1-1.0); CALCIUM 8.9 MG/DL (8.5-10.1); CREATININE SERUM 0.81 MG/DL (0.60-1.30); POTASSIUM 3.5 MMOL/L (3.6-5.0); TOTAL PROTEIN 6.3 GM/DL (6.4-8.2)
[2022-11-09 07:30] LABS: ABG BASE EXCESS 9.9 MMOL/L (-2.5-2.5); ABG OXYGEN SATURATION 94 % (94-100); ABG PCO2 57 MMHG (35-45); ABG PO2 64 MMHG (79-93); ABG TCO2 36.9 MMOL/L (21.0-31.0)
[2022-11-09 07:31] LABS: ALLENS TEST YES-POS
[2022-11-09 07:32] LABS: PATIENT TEMP 36.2; VENTILATOR NO
[2022-11-09] MEDS: NICOTINE 21 MG PATCH TD SCH (07:55)
[2022-11-09] MEDS: NICOTINE PATCH REMOVAL TP SCH (07:55)
[2022-11-09] MEDS: ASPIRIN 81 MG CHEWABLE TABLET PO SCH (07:55)
[2022-11-09 08:00] VITALS: BP 123/72
--- NOTE | 2022-11-09 08:28 | Cardiology Progress Note ---
Subjective Date Seen by Provider: Nov 09, 2022 Time Seen by Provider: 08:20 Subjective/Events-last exam Patient sitting up in bed, asking to leave. Denies any chest pain Focused Exam Lactate Level 11/06/22 16:20: Lactic Acid Level 1.44 Objective-Cardiology Exam Last Set of Vital Signs Vital Signs 11/09/22 11/09/22 11/09/22 08:00 10:48 12:05 Temp 36.6 Pulse 90 Resp 18 B/P (MAP) 131/68 (89) Pulse Ox 95 O2 Delivery OxyMask O2 Flow Rate 2.00 FiO2 91 I&O Intake and Output 11/08/22 23:59 Intake Total 930 ml Output Total 800 ml Balance 130 ml Intake Oral 830 ml IV Total 100 ml Output Urine Total 800 ml General: Alert, Oriented X3, Cooperative HEENT: Atraumatic, PERRLA Lungs: Clear to Auscultation, Normal Air Movement Heart: Regular Rate Abdomen: Normal Bowel Sounds, Soft Extremities: No Edema Skin: No Significant Lesion Neuro: Normal Gait Results Lab Laboratory Tests 11/09/22 05:07 A/P-Cardiology Admission Diagnosis Pneumonia Elevated troponin Elevated BNP Heat exhaustion Assessment/Plan Pneumonia, started on antibiotics, management per medical services. Elevated troponin, minimally elevated troponin, trending down. EKG showing no acute ST changes. Likely type II PR secondary to hypoxemia. Will continue with medical management. Elevated BNP,2D echo done 11/08/22 showing normal LV, EF 50-55%, grade 1 diastolic dysfunction, PA 25mmHg. Heat exhaustion, improved. Dehydration, received IVF Hx of right foot amputation secondary to nonhealing wound and medical noncompliance Medical noncompliance Poor hygeine Patient was seen and evaluated with Kaitlin, examination performed, management plan was discussed, agree with the current scribed note, I made few changes to the note using Italic font Patient was seen at bedside, currently on oxygen mask, still hypoxemic maintained on antibiotic for his pneumonia Type II PR and managed conservatively Continue to monitor KAITLIN NOVOA Nov 09, 2022 08:28 KARINA SNELL MD Nov 09, 2022 12:53
--- NOTE | 2022-11-09 08:52 | Diagnostic Imaging Report ---
EXAMINATION: Chest 1 view HISTORY: Pneumonia COMPARISON: 11/08/2022 FINDINGS: There is an area of airspace opacity in the right upper middle zones, slightly increased from prior exam. There is a small right pleural effusion. No pneumothorax. Left lung is clear. Heart size is normal. IMPRESSION: 1. Increasing right upper and midlung airspace opacity and small right pleural effusion in keeping with pneumonia. Dictated by: Dictated on workstation # [id number]
[2022-11-09] MEDS: guaiFENesin 600 MG TABLET PO SCH ×2 (10:38→20:54)
[2022-11-09 12:05] VITALS: BP 131/68
--- NOTE | 2022-11-09 12:53 | Progress Note - Hospitalist ---
ZINATSERING 11/09/22 1253: Subjective HPI/CC On Admission Date Seen by Provider: Nov 09, 2022 Time Seen by Provider: 11:00 CC: community acquired pneumonia. Subjective/Events-last exam Patient was on Oxymask when I met him. He denied any chest or abdominal pain, and had no nausea or vomiting. He was slightly confused and said he felt weak, but still used his arm to expresses himself when he talked. He answered questions without any complaints and said he generally felt better than when he arrived. . Review of Systems General: No Chills, No Night Sweats; Fatigue, Malaise HEENT: Head Aches (mild headache ); No Visual Changes, No Eye Pain, No Sinus Congestion, No Sore Throat Cardiovascular: No: Chest Pain, Palpitations, Orthopnea Gastrointestinal: No: Nausea, Vomiting, Abdominal Pain, Melena Genitourinary: No Hematuria Focused Exam Lactate Level 11/06/22 16:20: Lactic Acid Level 1.44 Objective Exam Vital Signs Vital Signs Date Time Temp Pulse Resp B/P (MAP) Pulse Ox O2 Delivery O2 Flow Rate FiO2 11/09/22 12:05 36.6 90 18 131/68 (89) OxyMask 2.00 11/09/22 10:48 91 11/09/22 08:00 95 Capillary Refill : Less Than 3 Seconds General Appearance: No Apparent Distress, Chronically ill Respiratory: Chest Non Tender, Decreased Breath Sounds, Rhonci Cardiovascular: Regular Rate, Rhythm, No Edema, No JVD Neurologic/Psychiatric: Alert Results/Procedures Lab Laboratory Tests 11/09/22 05:07 Patient resulted labs reviewed. Assessment/Plan Assessment and Plan Assess & Plan/Chief Complaint Asessment: Sepsis 2/2 pneumonia encephalopathy generalized weakness elevated troponin -NSTEMI Type II ME 2/2 hypoxemia hypoxia- resolved COPD CAD pulmonary vascular congestion HTN smoking hx Plan: Continue IV antiobiotics F/U chest X-ray and ABG monitor cardiac symptoms SHIRLEY RUTHERFORD DO 11/09/221936: Supervisory-Addendum Brief Verification & Attestation Participated in pt care: history, MDM, physical Personally performed: exam, history, MDM, supervision of care Care discussed with: Medical Student Procedures: n/a Results interpretation: Verified all documentation Verification and Attestation of Medical Student E/M Service A medical student performed and documented this service in my presence. I reviewed and verified all information documented by the medical student and made modifications to such information, when appropriate. I personally performed the physical exam and medical decision making. Shirley Rutherford, Nov 09, 2022,19:37 SCHWARTZ Nov 09, 2022 12:53 SHIRLEY RUTHERFORD DO Nov 09, 2022 19:37
--- NOTE | 2022-11-09 14:48 | Physical Therapy Evaluation ---
PT Evaluation-General Medical Diagnosis Admission Date Nov 07, 2022 at 11:10 Medical Diagnosis: Pneumonia Onset Date: Nov 06, 2022 Therapy Diagnosis Therapy Diagnosis: Gait deficit, strength deficit Precautions Precautions/Isolations: Contact Isolation, Fall Prevention Weight Bear Status Right Lower Extremity: Right Non Weight Bearing Left Lower Extremity: Left Full Weight Bearing Patient has right bimalleolar amputation which he reports was done in the 1970s. Reports initially that his right foot prosthetic "Has probably been thrown away", then reports "Its probably at home." Referral Physician: Dr. Prado Reason for Referral: Evaluation/Treatment Medical History Pertinent Medical History: CAD, COPD, CVA, HTN, Smoking Reviewed History: Yes Social History Home: Single Level Current Living Status: Alone Entry Into Home: Stairs With Railing PT Steps Into Home: 3 Prior Prior Level of Function SCALE: Activities may be completed with or without assistive devices. 7-Sbbkhikjuc-izwwrmx completes the activity by him/herself with no assistance from a helper. 5-Set-up or Clean-up Assistance-helper sets up or cleans up; patient completes activity. [place] assists only prior to or following the activity. 4-Supervision or Touching Assistance-helper provides verbal cues and/or touching/steadying and/or contact guard assistance as patient completes activity. Assistance may be provided throughout the activity or intermittently. 3-Partial/Moderate Assistance-helper does LESS THAN HALF the effort. [place] lifts, holds or supports trunk or limbs, but provides less than half the effort. 2-Substantial/Maximal Assistance-helper does MORE THAN HALF the effort. [place] lifts or holds trunk or limbs and provides more than half the effort. 9-Bmtqnepkx-lmopfe does ALL the effort. Patient does none of the effort to com plete the activity. Or, the assistance of 2 or more helpers is required for the patient to complete the activity. If activity was not attempted, code reason: 7-Patient Refused. 9-Not Applicable-not attempted and the patient did not perform the activity before the current illness, exacerbation or injury. 10-Not Attempted due to Environmental Limitations-(lack of equipment, weather restraints, etc.). 88-Not Attempted due to Medical Conditions or Safety Concerns. Bed Mobility: 6 Transfers (B,C,W/C): 6 Gait: 6 Stairs: 6 Indoor Mobility (Ambulation): Independent Stairs: Independent Prior Devices Use: Walker PT Evaluation-Current Subjective Patient lying supine in bed upon PT arrival, agreeable to treatment. Patient reports no pain at this time. Subjective information questionable due to patients current cognitive decline. Objective Patient Orientation: Person Attachments: Oxygen, Lopez Catheter, IV ROM/Strength ROM Lower Extremities WFLs BLEs all planes except right ankle due to amputation. Strength Lower Extremities 3+/5 BLEs all planes Sensory Vision: Wears Glasses Hearing: Impaired Sensation Right Lower Extremit: Impaired Sensation Left Lower Extremity: Impaired Transfers Roll Left to Right (QC): 2 Sit to Lying (QC): 2 Lying to Sitting/Side of Bed(Q: 2 Sit to Stand (QC): 1 Chair/Spd-ol-Kzygr Xfer(QC): 1 Gait Does the Patient Walk?: No and Walking Goal IS indicated Mode of Locomotion: Both Anticipated Mode of Locomotion: Both Balance Sitting Static: Fair Sitting Dynamic: Poor Standing Static: Poor Standing Dynamic: Poor Assessment/Needs Patient tolerated treatment poorly. Confusion makes following commands more difficult and frequent verbal cues required for safety and for patient to stay on task. Patient performs all bed mobility and transfers with max to total A. Patient attempts to stand with FWW x 2 and is unable to stand fully erect. Patient required Total A for transfer to the chair from PT. Patient in chair post treatment with all needs met, nursing notified, call light in hand, chair alarm activated. 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 PT Lumber Material Handler Goals Time Frame: Nov 27, 2022 Roll Left & Right (QC): 4 Sit to Lying (QC): 4 Lying-Sitting on Side/Bed(QC): 4 Sit to Stand (QC): 3 Chair/Frk-mj-Idqjt Xfer(QC): 3 Toilet Transfer (QC): 3 Does the Patient Walk: No and Walking Goal IS indicated Walk 10 feet (QC): 2 PT Plan Problem List Problem List: Activity Tolerance, Functional Strength, Safety, Balance, Gait, Transfer, Bed Mobility, ROM Treatment/Plan Treatment Plan: Continue Plan of Care Treatment Plan: Bed Mobility, Education, Functional Activity Melisa, Functional Strength, Group Therapy, Gait, Safety, Therapeutic Exercise, Transfers Treatment Duration: Dec 18, 2022 Frequency: 6 times per week Estimated Hrs Per Day: .25 hour per day Safety Risks/Education Patient Education: Transfer Techniques Teaching Recipient: Patient Teaching Methods: Demonstration, Discussion Response to Teaching: Verbalize Understanding, Return Demonstration Time Time In: 1333 Time Out: 1403 DATE: Nov 09, 2022 Total Billed Treatment Time: 30 Total Billed Treatment Visit, MARIA ESTHER REARDON JOHN A PT Nov 09, 2022 14:48
[2022-11-09 15:35] VITALS: BP 146/68
[2022-11-09 19:04] VITALS: BP 133/80
[2022-11-09] MEDS: ENOXAPARIN 40 MG/0.4 ML SYRINGE SC SCH (20:54)
[2022-11-10] VITALS (7 sets, daily range): BP systolic 110–140; BP diastolic 62–82
[2022-11-10] MEDS: RT-ALBUTEROL SULF 2.5 MG/3 ML PRE-MIX VIAL INH SCH ×5 (02:18→19:01)
[2022-11-10] MEDS: PIPERACILLIN/Tazobactam 4.5 GM in NS (IVPB) 100 ML 100 ML IV SCH ×3 (05:06→20:24)
[2022-11-10 05:46] LABS: BASOPHILS # (AUTO) 0.1 10^3/uL (0.0-0.1); BASOPHILS % (AUTO) 0 % (0-10); EOSINOPHILS # (AUTO) 0.1 10^3/uL (0.0-0.3); EOSINOPHILS % (AUTO) 0 % (0-10); HEMATOCRIT 46 % (40-54); HEMOGLOBIN 14.3 g/dL (13.3-17.7); LYMPHOCYTES # (AUTO) 0.8 10^3/uL (1.0-4.0); LYMPHOCYTES % (AUTO) 3 % (12-44); MEAN CORPUSCULAR HEMOGLOBIN 29 pg (25-34); MEAN CORPUSCULAR HGB CONC 31 g/dL (32-36); MEAN CORPUSCULAR VOLUME 93 fL (80-99); MEAN PLATELET VOLUME 11.8 fL (9.0-12.2); MONOCYTES % (AUTO) 8 % (0-12); NEUTROPHILS # (AUTO) 22.2 10^3/uL (1.8-7.8); NEUTROPHILS % (AUTO) 87 % (42-75); PLATELET COUNT 359 10^3/uL (130-400); WHITE BLOOD COUNT 25.5 10^3/uL (4.3-11.0)
[2022-11-10 06:07] LABS: ALBUMIN 2.6 GM/DL (3.2-4.5); BILIRUBIN,TOTAL 0.8 MG/DL (0.1-1.0); CALCIUM 8.9 MG/DL (8.5-10.1); CREATININE SERUM 0.81 MG/DL (0.60-1.30); POTASSIUM 3.4 MMOL/L (3.6-5.0); TOTAL PROTEIN 6.4 GM/DL (6.4-8.2)
[2022-11-10] MEDS: ASPIRIN 81 MG CHEWABLE TABLET PO SCH (08:02)
[2022-11-10] MEDS: NICOTINE 21 MG PATCH TD SCH (08:02)
[2022-11-10] MEDS: guaiFENesin 600 MG TABLET PO SCH ×2 (08:02→20:25)
[2022-11-10] MEDS: NICOTINE PATCH REMOVAL TP SCH (08:02)
--- NOTE | 2022-11-10 09:19 | Cardiology Progress Note ---
Subjective Date Seen by Provider: Nov 10, 2022 Time Seen by Provider: 08:40 Subjective/Events-last exam Patient sitting up in chair, denies any chest pain Objective-Cardiology Exam Last Set of Vital Signs Vital Signs 11/09/22 11/10/22 11/10/22 15:00 11:04 13:31 Temp 36.2 Pulse 94 Resp 18 B/P (MAP) 136/82 (100) Pulse Ox 97 O2 Delivery Nasal Cannula O2 Flow Rate 3.00 FiO2 97 I&O Intake and Output 11/10/22 00:00 Intake Total 1294 ml Output Total 800 ml Balance 494 ml Intake Oral 894 ml IV Total 400 ml Output Urine Total 800 ml # Bowel Movements 1 General: Alert, Oriented X3, Cooperative HEENT: Atraumatic, PERRLA Lungs: Clear to Auscultation, Normal Air Movement Heart: Regular Rate Abdomen: Normal Bowel Sounds, Soft Extremities: No Edema Skin: No Significant Lesion Neuro: Normal Gait Results Lab Laboratory Tests 11/10/22 05:15 A/P-Cardiology Admission Diagnosis Pneumonia Elevated troponin Elevated BNP Heat exhaustion Assessment/Plan Pneumonia, on antibiotics, management per medical services. Elevated troponin, minimally elevated troponin, trending down. EKG showing no acute ST changes. Likely type II IN secondary to hypoxemia. Will continue with medical management. Elevated BNP,2D echo done 11/08/22 showing normal LV, EF 50-55%, grade 1 diastolic dysfunction, PA 25mmHg. Heat exhaustion, improved. Dehydration, received IVF Hx of right foot amputation secondary to nonhealing wound and medical noncompliance Medical noncompliance Poor hygeine Supervisory-Addendum Brief Supervisory Addendum Participated in pt care: history, MDM, physical Personally performed: exam, history, MDM Care discussed with: PEÑA Results interpretation: Verified all documentation Notes: Patient was seen and evaluated with Fuentes, examination performed, management plan was discussed, agree with the current scribed note, I made few changes to the note using Italic font Patient was seen at bedside sitting comfortably Feeling better, reporting improvement Continue with conservative management FUENTES NOVOA Nov 10, 2022 09:19 KARINA SNELL MD Nov 10, 2022 14:08
--- NOTE | 2022-11-10 11:47 | Physical Therapy Daily Note ---
PT Daily Note-Current Subjective Patient lying supine in bed upon PT arrival, agreeable to treatment. Patient rates pain a 8/10 in his back. Pain Section J - Health Conditions 1. Rarely or not at all 2. Occasionally 3. Frequently 4. Almost constantly 8. Unable to answer Pain Effect on Sleep: 1 Pain Interference with Therapy: 3 Pain Interference w/Day-to-Day: 2 Mental Status Patient Orientation: Person Transfers SCALE: Activities may be completed with or without assistive devices. 8-Ktzunkokcw-yfrkvdk completes the activity by him/herself with no assistance from a helper. 5-Set-up or Clean-up Assistance-helper sets up or cleans up; patient completes activity. [place] assists only prior to or following the activity. 4-Supervision or Touching Assistance-helper provides verbal cues and/or touching/steadying and/or contact guard assistance as patient completes activity. Assistance may be provided throughout the activity or intermittently. 3-Partial/Moderate Assistance-helper does LESS THAN HALF the effort. [place] lifts, holds or supports trunk or limbs, but provides less than half the effort. 2-Substantial/Maximal Assistance-helper does MORE THAN HALF the effort. [place] lifts or holds trunk or limbs and provides more than half the effort. 2-Fsxjokzer-svbeea does ALL the effort. Patient does none of the effort to complete the activity. Or, the assistance of 2 or more helpers is required for the patient to complete the activity. If activity was not attempted, code reason: 7-Patient Refused. 9-Not Applicable-not attempted and the patient did not perform the activity before the current illness, exacerbation or injury. 10-Not Attempted due to Environmental Limitations-(lack of equipment, weather restraints, etc.). 88-Not Attempted due to Medical Conditions or Safety Concerns. 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 Reports initially that his right foot prosthetic "Has probably been thrown away", then reports "Its probably at home." Assessment Current Status: Poor Progress Patient demonstrates minimal improvement in bed mobility, however still requires max A for sit to stand and SPT to the chair. Patient does not have the O2 donned upon PT arrival. Patient in chair post treatment with all needs met, nursing notified, call light in hand, chair alarm activated and O2 donned. PT Composition Weatherboard Installer Goals [facility] Goals PT Composition Weatherboard Installer Goals Time Frame: Nov 27, 2022 Roll Left & Right (QC): 4 Sit to Lying (QC): 4 Lying-Sitting on Side/Bed(QC): 4 Sit to Stand (QC): 3 Chair/Lky-it-Kxobt Xfer(QC): 3 Toilet Transfer (QC): 3 Does the Patient Walk: No and Walking Goal IS indicated Walk 10 feet (QC): 2 PT Plan Treatment/Plan Treatment Plan: Continue Plan of Care Treatment Plan: Bed Mobility, Education, Functional Activity Melisa, Functional Strength, Group Therapy, Gait, Safety, Therapeutic Exercise, Transfers Treatment Duration: Dec 18, 2022 Frequency: 6 times per week Estimated Hrs Per Day: .25 hour per day Safety Risks/Education Patient Education: Transfer Techniques Teaching Recipient: Patient Teaching Methods: Demonstration, Discussion Response to Teaching: Reinforcement Needed Time Time In: 918 Time Out: 941 DATE: Nov 10, 2022 Total Billed Treatment Time: 23 Total Billed Treatment Visit, FA 2 BELLA MCDONNELL PT Nov 10, 2022 11:47
--- NOTE | 2022-11-10 12:55 | Progress Note - Hospitalist ---
ZINATSERING 11/10/22 1254: Subjective HPI/CC On Admission Date Seen by Provider: Nov 10, 2022 Time Seen by Provider: 11:30 CC: community acquired pneumonia. Subjective/Events-last exam Patient was sitting in chair on Oxymask and doing much better than yesterday. He says he feels better as well and is much more engaged in conversation compared to when he came in. Still denies any chest or abdominal pain. He has been eating and passed 2 non-bloody bowel movements since yesterday. He mentioned a mild chest pressure on his right while taking a shower but it has not reoccurred. Review of Systems General: No Chills, No Night Sweats; Fatigue, Appetite HEENT: No Head Aches, No Dysphasia Pulmonary: No Dyspnea; Cough Cardiovascular: No: Chest Pain, Palpitations, Edema Gastrointestinal: No: Nausea, Vomiting, Abdominal Pain, Diarrhea Genitourinary: No Dysuria, No Hematuria Objective Exam Vital Signs Vital Signs Date Time Temp Pulse Resp B/P (MAP) Pulse Ox O2 Delivery O2 Flow Rate FiO2 11/10/22 11:04 36.2 83 18 136/82 (100) 97 Nasal Cannula 3.00 11/09/22 15:00 97 Capillary Refill : Less Than 3 Seconds General Appearance: No Apparent Distress, Chronically ill Respiratory: Chest Non Tender, No Accessory Muscle Use, No Respiratory Distress, Rhonci Cardiovascular: Regular Rate, Rhythm, No Edema, No Murmur Gastrointestinal: Normal Bowel Sounds, No Organomegaly, No Pulsatile Mass, Non Tender, Soft Neurologic/Psychiatric: Alert, Oriented x3 Results/Procedures Lab Laboratory Tests 11/10/22 05:15 Patient resulted labs reviewed. Assessment/Plan Assessment and Plan Assess & Plan/Chief Complaint Asessment: Sepsis 2/2 pneumonia encephalopathy- resolved generalized weakness NSTEMI Type II [place] 2/2 hypoxemia hypoxia- resolved COPD CAD pulmonary vascular congestion HTN smoking hx Plan: Continue IV antiobiotics F/U chest X-ray and ABG monitor cardiac symptoms SHIRLEY RUTHERFORD DO 11/10/22 2009: Subjective Subjective/Events-last exam Patient doing a little bit better Remains on oxygen Chronic disability noted No pain No falls Objective Exam General Appearance: No Apparent Distress, WD/WN, Chronically ill, Obese Respiratory: Lungs Clear, Normal Breath Sounds, Decreased Breath Sounds Cardiovascular: Regular Rate, Rhythm Assessment/Plan Assessment and Plan Assess & Plan/Chief Complaint Supportive care Awaiting skilled nursing placement Supervisory-Addendum Brief Verification & Attestation Participated in pt care: history, MDM, physical Personally performed: exam, history, MDM, supervision of care Care discussed with: Medical Student Procedures: n/a Results interpretation: Verified all documentation Verification and Attestation of Medical Student E/M Service A medical student performed and documented this service in my presence. I reviewed and verified all information documented by the medical student and made modifications to such information, when appropriate. I personally performed the physical exam and medical decision making. Shirley Rutherford, Nov 10, 2022,20:08 SCHWARTZ Nov 10, 2022 12:54 SHIRLEY RUTHERFORD DO Nov 10, 2022 20:09
[2022-11-10] MEDS: ENOXAPARIN 40 MG/0.4 ML SYRINGE SC SCH (20:25)
[2022-11-11 04:30] VITALS: BP 113/62
[2022-11-11] MEDS: PIPERACILLIN/Tazobactam 4.5 GM in NS (IVPB) 100 ML 100 ML IV SCH ×2 (04:48→11:54)
[2022-11-11 06:02] LABS: BASOPHILS # (AUTO) 0.1 10^3/uL (0.0-0.1); BASOPHILS % (AUTO) 0 % (0-10); EOSINOPHILS # (AUTO) 0.2 10^3/uL (0.0-0.3); EOSINOPHILS % (AUTO) 1 % (0-10); HEMATOCRIT 45 % (40-54); LYMPHOCYTES # (AUTO) 0.8 10^3/uL (1.0-4.0); LYMPHOCYTES % (AUTO) 3 % (12-44); MEAN CORPUSCULAR HEMOGLOBIN 29 pg (25-34); MEAN CORPUSCULAR HGB CONC 31 g/dL (32-36); MEAN CORPUSCULAR VOLUME 94 fL (80-99); MONOCYTES # (AUTO) 1.9 10^3/uL (0.0-1.0); MONOCYTES % (AUTO) 8 % (0-12); NEUTROPHILS % (AUTO) 87 % (42-75); PLATELET COUNT 346 10^3/uL (130-400); WHITE BLOOD COUNT 25.3 10^3/uL (4.3-11.0)
[2022-11-11 06:11] LABS: ALBUMIN 2.5 GM/DL (3.2-4.5)
[2022-11-11 06:12] LABS: POTASSIUM 3.3 MMOL/L (3.6-5.0)
[2022-11-11 06:13] LABS: CALCIUM 9.1 MG/DL (8.5-10.1)
[2022-11-11 06:14] LABS: TOTAL PROTEIN 6.4 GM/DL (6.4-8.2)
[2022-11-11 06:16] LABS: BILIRUBIN,TOTAL 0.6 MG/DL (0.1-1.0)
[2022-11-11 06:18] LABS: CREATININE SERUM 0.74 MG/DL (0.60-1.30)
[2022-11-11 07:13] VITALS: BP 115/74
[2022-11-11] MEDS: RT-ALBUTEROL SULF 2.5 MG/3 ML PRE-MIX VIAL INH SCH ×6 (07:27→22:03)
[2022-11-11] MEDS: ASPIRIN 81 MG CHEWABLE TABLET PO SCH (08:41)
[2022-11-11] MEDS: guaiFENesin 600 MG TABLET PO SCH ×2 (08:41→19:53)
[2022-11-11] MEDS: NICOTINE 21 MG PATCH TD SCH (08:42)
[2022-11-11] MEDS: NICOTINE PATCH REMOVAL TP SCH (08:42)
--- NOTE | 2022-11-11 09:10 | Cardiology Progress Note ---
Subjective Date Seen by Provider: Nov 11, 2022 Time Seen by Provider: 08:00 Subjective/Events-last exam Patient is sitting up in bed, denies any chest pain. Objective-Cardiology Exam Last Set of Vital Signs Vital Signs 11/09/22 11/11/22 15:00 15:20 Temp 36.2 Pulse 93 Resp 20 B/P (MAP) 121/77 (92) Pulse Ox 92 O2 Delivery Nasal Cannula O2 Flow Rate 4.00 FiO2 97 I&O Intake and Output 11/11/22 00:00 Intake Total 860 ml Output Total 1425 ml Balance -565 ml Intake Oral 860 ml Output Urine Total 1425 ml # Bowel Movements 2 General: Alert, Oriented X3, Cooperative HEENT: Atraumatic, PERRLA Lungs: Clear to Auscultation, Normal Air Movement Heart: Regular Rate Abdomen: Normal Bowel Sounds, Soft Extremities: No Edema Skin: No Significant Lesion Neuro: Normal Gait Results Lab Laboratory Tests 11/11/22 05:19 11/11/22 05:20 A/P-Cardiology Admission Diagnosis Pneumonia Elevated troponin Elevated BNP Heat exhaustion Assessment/Plan Pneumonia, on antibiotics, management per medical services. Elevated troponin, minimally elevated troponin, trending down. EKG showing no acute ST changes. Likely type II [place] secondary to hypoxemia. Will continue with medical management. Elevated BNP,2D echo done 11/08/22 showing normal LV, EF 50-55%, grade 1 diastolic dysfunction, PA 25mmHg. Heat exhaustion, improved. Dehydration, received IVF Hx of right foot amputation secondary to nonhealing wound and medical noncompliance Medical noncompliance Poor hygeine Supervisory-Addendum Brief Supervisory Addendum Participated in pt care: history, MDM, physical Personally performed: exam, history, MDM Care discussed with: PEÑA Results interpretation: Verified all documentation Notes: Patient was seen and evaluated with Fuentes, examination performed, management plan was discussed, agree with the current scribed note, I made few changes to the note using Italic font Patient was seen at bedside, laying down comfortably, No changes, continue to monitor blood pressure. FUENTES NOVOA Nov 11, 2022 09:10 KARINA SNELL MD Nov 11, 2022 17:35
--- NOTE | 2022-11-11 10:20 | Physical Therapy Daily Note ---
PT Daily Note-Current Subjective Patient declined OOB activity. Agrees to repositioning. Noted lethargy this a.m. Pain Section J - Health Conditions 1. Rarely or not at all 2. Occasionally 3. Frequently 4. Almost constantly 8. Unable to answer Pain Effect on Sleep: 1 Pain Interference with Therapy: 3 Pain Interference w/Day-to-Day: 2 Transfers SCALE: Activities may be completed with or without assistive devices. 2-Wxweymzyqe-iqqtvcq completes the activity by him/herself with no assistance from a helper. 5-Set-up or Clean-up Assistance-helper sets up or cleans up; patient completes activity. [place] assists only prior to or following the activity. 4-Supervision or Touching Assistance-helper provides verbal cues and/or touchin g/steadying and/or contact guard assistance as patient completes activity. Assistance may be provided throughout the activity or intermittently. 3-Partial/Moderate Assistance-helper does LESS THAN HALF the effort. [place] lifts, holds or supports trunk or limbs, but provides less than half the effort. 2-Substantial/Maximal Assistance-helper does MORE THAN HALF the effort. [place] lifts or holds trunk or limbs and provides more than half the effort. 9-Apyikaxjt-ameyix does ALL the effort. Patient does none of the effort to complete the activity. Or, the assistance of 2 or more helpers is required for the patient to complete the activity. If activity was not attempted, code reason: 7-Patient Refused. 9-Not Applicable-not attempted and the patient did not perform the activity before the current illness, exacerbation or injury. 10-Not Attempted due to Environmental Limitations-(lack of equipment, weather restraints, etc.). 88-Not Attempted due to Medical Conditions or Safety Concerns. 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 Reports initially that his right foot prosthetic "Has probably been thrown away", then reports "Its probably at home." Assessment Patient repositioned up in bed max assist. Patient declined OOB activity on this date. PT Product Marketing Coordinator Goals Product Marketing Coordinator Goals PT Product Marketing Coordinator Goals Time Frame: Nov 27, 2022 Roll Left & Right (QC): 4 Sit to Lying (QC): 4 Lying-Sitting on Side/Bed(QC): 4 Sit to Stand (QC): 3 Chair/Urx-ge-Rtswx Xfer(QC): 3 Toilet Transfer (QC): 3 Does the Patient Walk: No and Walking Goal IS indicated Walk 10 feet (QC): 2 PT Plan Treatment/Plan Treatment Plan: Continue Plan of Care Treatment Plan: Bed Mobility, Education, Functional Activity Melisa, Functional Strength, Group Therapy, Gait, Safety, Therapeutic Exercise, Transfers Treatment Duration: Dec 18, 2022 Frequency: 6 times per week Estimated Hrs Per Day: .25 hour per day Time Time In: 800 Time Out: 810 DATE: Nov 11, 2022 Total Billed Treatment Time: 10 Total Billed Treatment 1 visit FA 10 min FLORIDA RAMOS PT Nov 11, 2022 10:20
[2022-11-11 11:08] VITALS: BP 108/69
--- NOTE | 2022-11-11 11:37 | Progress Note - Hospitalist ---
Subjective HPI/CC On Admission Date Seen by Provider: Nov 11, 2022 Time Seen by Provider: 11:45 CC: community acquired pneumonia. Subjective/Events-last exam Patient doing about the same Much improved breathing Voiding well without catheter Bowels are pretty loose Review of Systems Gastrointestinal: Diarrhea Objective Exam Vital Signs Vital Signs Date Time Temp Pulse Resp B/P (MAP) Pulse Ox O2 Delivery O2 Flow Rate FiO2 11/11/22 19:57 91 Nasal Cannula 4.50 11/11/22 19:45 36.2 93 20 130/83 (99) 11/09/22 15:00 97 Capillary Refill : Less Than 3 Seconds General Appearance: No Apparent Distress, WD/WN, Chronically ill Respiratory: Lungs Clear, Normal Breath Sounds, Decreased Breath Sounds Cardiovascular: Regular Rate, Rhythm Neurologic/Psychiatric: Alert, Oriented x3, Depressed Affect, Disoriented Results/Procedures Lab Laboratory Tests 11/11/22 05:19 11/11/22 05:20 Patient resulted labs reviewed. Assessment/Plan Assessment and Plan Assess & Plan/Chief Complaint Supportive care Awaiting group home placement DEVONTE RUTHERFORD DO Nov 11, 2022 11:37
[2022-11-11] MEDS ORDERED: POTASSIUM CHLORIDE 20 MEQ TABLET PO NR (12:00)
[2022-11-11 15:20] VITALS: BP 121/77
--- NOTE | 2022-11-11 18:43 | Physician Query-Final Dx ---
ALLY KNAPP 11/11/22 1843: Final Diagnosis Give Final Diagnosis Please give Final Diagnosis The medical record reflects the following clinical evidence: Clinical Indicators: Generalized weakness, documentation of encephalopathy on admission, GCS 14 has improved to 15 physician documenting encephalopathy resolved, Risk Factor(s): Sepsis secondary pneumonia, heat exposure, Treatment: Lab monitoring, neuro monitoring, IV fluids and IV antibiotics for sepsis, Metabolic encephalopathy, present on admission, now resolved Other explanation of clinical findings Unable to determine (no explanation for clinical findings) Please clarify and document your clinical opinion in the progress notes and discharge summary including the definitive and/or presumptive diagnosis, (suspected or probable), related to the above clinical findings. Please include clinical findings supporting your diagnosis. Ally Knapp, MSN, RN Clinical [employer]ic [phone] [email or web address] DEVONTE RUTHERFORD DO 11/11/22 2014: Final Diagnosis Give Final Diagnosis Metabolic encephalopathy, present on admission, now resolved ALLY KNAPP Nov 11, 2022 18:43 DEVONTE RUTHERFORD DO Nov 11, 2022 20:14
[2022-11-11 19:45] VITALS: BP 130/83
[2022-11-11] MEDS: ENOXAPARIN 40 MG/0.4 ML SYRINGE SC SCH (19:53)
[2022-11-12 00:44] VITALS: BP 130/83
[2022-11-12] MEDS: RT-ALBUTEROL SULF 2.5 MG/3 ML PRE-MIX VIAL INH PRN (03:14)
[2022-11-12 03:34] VITALS: BP 152/72
[2022-11-12 05:11] LABS: BASOPHILS # (AUTO) 0.1 10^3/uL (0.0-0.1); BASOPHILS % (AUTO) 0 % (0-10); EOSINOPHILS # (AUTO) 0.1 10^3/uL (0.0-0.3); EOSINOPHILS % (AUTO) 1 % (0-10); HEMATOCRIT 43 % (40-54); HEMOGLOBIN 13.4 g/dL (13.3-17.7); LYMPHOCYTES # (AUTO) 0.9 10^3/uL (1.0-4.0); LYMPHOCYTES % (AUTO) 4 % (12-44); MEAN CORPUSCULAR HEMOGLOBIN 29 pg (25-34); MEAN CORPUSCULAR HGB CONC 31 g/dL (32-36); MEAN CORPUSCULAR VOLUME 93 fL (80-99); MONOCYTES # (AUTO) 1.6 10^3/uL (0.0-1.0); MONOCYTES % (AUTO) 7 % (0-12); NEUTROPHILS # (AUTO) 19.4 10^3/uL (1.8-7.8); NEUTROPHILS % (AUTO) 87 % (42-75); PLATELET COUNT 327 10^3/uL (130-400); WHITE BLOOD COUNT 22.3 10^3/uL (4.3-11.0)
[2022-11-12 05:32] LABS: ALBUMIN 2.3 GM/DL (3.2-4.5)
[2022-11-12 05:33] LABS: POTASSIUM 3.5 MMOL/L (3.6-5.0)
[2022-11-12 05:34] LABS: CALCIUM 8.6 MG/DL (8.5-10.1)
[2022-11-12 05:37] LABS: BILIRUBIN,TOTAL 0.5 MG/DL (0.1-1.0)
[2022-11-12 05:39] LABS: CREATININE SERUM 0.69 MG/DL (0.60-1.30)
[2022-11-12 06:02] LABS: BAND NEUTROPHILS 1 %; LYMPHOCYTES % (MANUAL) 5 %; MONOCYTES % (MANUAL) 3 %; NEUTROPHILS % (MANUAL) 91 %
[2022-11-12 06:03] LABS: RBC MORPH NORMAL
[2022-11-12] MEDS ORDERED: POTASSIUM CHLORIDE 20 MEQ TABLET PO SCH (07:00)
[2022-11-12] MEDS: RT-ALBUTEROL SULF 2.5 MG/3 ML PRE-MIX VIAL INH SCH ×2 (07:19→14:47)
[2022-11-12 07:48] VITALS: BP 131/68
[2022-11-12] MEDS: NICOTINE 21 MG PATCH TD SCH (09:27)
[2022-11-12] MEDS: guaiFENesin 600 MG TABLET PO SCH (09:28)
[2022-11-12] MEDS: ASPIRIN 81 MG CHEWABLE TABLET PO SCH (09:28)
[2022-11-12] MEDS: NICOTINE PATCH REMOVAL TP SCH (09:28)
--- NOTE | 2022-11-12 10:16 | Physical Therapy Daily Note ---
PT Daily Note-Current Subjective Patient agrees to PT. Pain Section J - Health Conditions 1. Rarely or not at all 2. Occasionally 3. Frequently 4. Almost constantly 8. Unable to answer Pain Effect on Sleep: 1 Pain Interference with Therapy: 1 Pain Interference w/Day-to-Day: 1 Mental Status Attachments: Oxygen Transfers SCALE: Activities may be completed with or without assistive devices. 3-Rsiboioequ-owndjgw completes the activity by him/herself with no assistance from a helper. 5-Set-up or Clean-up Assistance-helper sets up or cleans up; patient completes activity. [place] assists only prior to or following the activity. 4-Supervision or Touching Assistance-helper provides verbal cues and/or touching/steadying and/or contact guard assistance as patient completes activity. Assistance may be provided throughout the activity or intermittently. 3-Partial/Moderate Assistance-helper does LESS THAN HALF the effort. [place] lifts, holds or supports trunk or limbs, but provides less than half the effort. 2-Substantial/Maximal Assistance-helper does MORE THAN HALF the effort. [place] lifts or holds trunk or limbs and provides more than half the effort. 8-Bbiacilkf-cyxeml does ALL the effort. Patient does none of the effort to complete the activity. Or, the assistance of 2 or more helpers is required for the patient to complete the activity. If activity was not attempted, code reason: 7-Patient Refused. 9-Not Applicable-not attempted and the patient did not perform the activity before the current illness, exacerbation or injury. 10-Not Attempted due to Environmental Limitations-(lack of equipment, weather restraints, etc.). 88-Not Attempted due to Medical Conditions or Safety Concerns. 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 Reports initially that his right foot prosthetic "Has probably been thrown away", then reports "Its probably at home." Gait Training Distance: 5 steps Gait Assistive Device: FWW Exercises Seated Therapy Exercises: Long arc quads Seated Reps: 15 Assessment Patient requires time to complete all functional tasks. Patient improved with min to mod assist with sit to stand and transfer with FWW to recliner. Patient does ambulate on amputated LE PT Care Home Goals Care Home Goals PT [employer] Director Goals Time Frame: Nov 27, 2022 Roll Left & Right (QC): 4 Sit to Lying (QC): 4 Lying-Sitting on Side/Bed(QC): 4 Sit to Stand (QC): 3 Chair/Vbd-bs-Ojryb Xfer(QC): 3 Toilet Transfer (QC): 3 Does the Patient Walk: No and Walking Goal IS indicated Walk 10 feet (QC): 2 PT Plan Treatment/Plan Treatment Plan: Continue Plan of Care Treatment Plan: Bed Mobility, Education, Functional Activity Melisa, Functional Strength, Group Therapy, Gait, Safety, Therapeutic Exercise, Transfers Treatment Duration: Dec 18, 2022 Frequency: 6 times per week Estimated Hrs Per Day: .25 hour per day Time Time In: 925 Time Out: 948 DATE: Nov 12, 2022 Total Billed Treatment Time: 23 Total Billed Treatment 1 visit FA x 2 23 min FLORIDA RAMOS PT Nov 12, 2022 10:16
--- NOTE | 2022-11-12 10:44 | Cardiology Progress Note ---
Subjective Date Seen by Provider: Nov 12, 2022 Time Seen by Provider: 10:43 Subjective/Events-last exam Patient was seen and evaluated at bedside, has been laying down comfortably. No new complaint Objective-Cardiology Exam Last Set of Vital Signs Vital Signs 11/09/22 11/12/22 11/12/22 15:00 07:48 08:00 Temp 36.3 Pulse 93 Resp 24 B/P (MAP) 131/68 (89) Pulse Ox 93 O2 Delivery Nasal Cannula O2 Flow Rate 4.50 FiO2 97 I&O Intake and Output 11/12/22 00:00 Intake Total 1050 ml Output Total 250 ml Balance 800 ml Intake Oral 1050 ml Output Urine Total 250 ml # Voids 4 # Bowel Movements 4 General: Alert, Oriented X3, Cooperative HEENT: Atraumatic, PERRLA Lungs: Clear to Auscultation, Normal Air Movement Heart: Regular Rate, Normal S1, Normal S2 Abdomen: Normal Bowel Sounds, Soft Extremities: No Clubbing, No Edema Skin: No Rashes, No Significant Lesion Neuro: Normal Gait Psych/Mental Status: Mood NL Results Lab Laboratory Tests 11/12/22 04:55 A/P-Cardiology Admission Diagnosis Pneumonia Elevated troponin Elevated BNP Heat exhaustion Assessment/Plan Pneumonia, on antibiotics, improved. Management per medical services. Elevated troponin, minimally elevated troponin, trending down. EKG showing no acute ST changes. Likely type II ND secondary to hypoxemia. Will continue with medical management. Elevated BNP,2D echo done 11/08/22 showing normal LV, EF 50-55%, grade 1 diastolic dysfunction, PA 25mmHg. Heat exhaustion, improved. Dehydration, received IVF Hx of right foot amputation secondary to nonhealing wound and medical noncompliance Medical noncompliance Poor hygeine KARINA SNELL MD Nov 12, 2022 10:43
[2022-11-12 11:27] VITALS: BP 132/65
--- NOTE | 2022-11-12 11:54 | Progress Note - Hospitalist ---
Subjective HPI/CC On Admission Date Seen by Provider: Nov 12, 2022 CC: community acquired pneumonia. Objective Exam Vital Signs Vital Signs Date Time Temp Pulse Resp B/P (MAP) Pulse Ox O2 Delivery O2 Flow Rate FiO2 11/12/22 17:26 36.8 94 20 119/74 90 Nasal Cannula 5.00 11/09/22 15:00 97 Capillary Refill : Less Than 3 Seconds Results/Procedures Lab Laboratory Tests 11/12/22 04:55 Patient resulted labs reviewed. Assessment/Plan Assessment and Plan Assess & Plan/Chief Complaint Supportive care Awaiting penitentiary placement DEVONTE RUTHERFORD DO Nov 12, 2022 11:54
[2022-11-12] MEDS ORDERED: GUAI600T43 PO (13:02)
[2022-11-12] MEDS ORDERED: ALBU2.5V4 INH (13:02)
[2022-11-12] MEDS ORDERED: ASPI81TA64 PO (13:02)
[2022-11-12] MEDS ORDERED: NICO1PAT34 TD (13:02)
--- NOTE | 2022-11-12 13:03 | Discharge Summary ---
Discharge Summary Hospital Course Was the Problem List Reviewed?: Yes Problems/Dx: (1) Community acquired pneumonia Status: Acute Qualifiers: Qualified Codes: J18.9 - Pneumonia, unspecified organism (2) Acute exacerbation of CHF (congestive heart failure) Status: Acute Qualifiers: Qualified Codes: I50.9 - Heart failure, unspecified (3) COPD exacerbation Hospital Course Date of Admission: Nov 07, 2022 at 11:10 Admission Diagnosis : [facility] [place] Date of Discharge: 11/12/22 Discharge Diagnosis: [ ] Hospital Course: Uneventful hospital course after he was admitted for pneumonia placed on antibiotics and COPD exacerbation treatment with diuresis. Patient required jail placement for skilled care due to unable to manage at home and his home was being condemned. Overall to be very chronically debilitated and unsure of realistic expectations of recovery. He was stable and was discharged in improved condition. Labs and Pending Lab Test: Laboratory Tests 11/12/22 04:55: White Blood Count 22.3H, Red Blood Count 4.57, Hemoglobin 13.4, Hematocrit 43, Mean Corpuscular Volume 93, Mean Corpuscular Hemoglobin 29, Mean Corpuscular Hemoglobin Concent 31L, Red Cell Distribution Width 13.7, Platelet Count 327, Mean Platelet Volume 12.0, Immature Granulocyte % (Auto) 1, Neutrophils (%) (Auto) 87H, Lymphocytes (%) (Auto) 4L, Monocytes (%) (Auto) 7, Eosinophils (%) (Auto) 1, Basophils (%) (Auto) 0, Neutrophils # (Auto) 19.4H, Lymphocytes # (Auto) 0.9L, Monocytes # (Auto) 1.6H, Eosinophils # (Auto) 0.1, Basophils # (Auto) 0.1, Immature Granulocyte # (Auto) 0.2H, Neutrophils % (Manual) 91, Lymphocytes % (Manual) 5, Monocytes % (Manual) 3, Band Neutrophils 1, Blood Morphology Comment NORMAL, Sodium Level 137, Potassium Level 3.5L, Chloride Level 96L, Carbon Dioxide Level 33H, Anion Gap 8, Blood Urea Nitrogen 20H, Creatinine 0.69, Estimat Glomerular Filtration Rate 98, BUN/Creatinine Ratio 29, Glucose Level 121H, Calcium Level 8.6, Corrected Calcium 10.0, Total Bilirubin 0.5, Aspartate Amino Transf (AST/SGOT) 27, Alanine Aminotransferase (ALT/SGPT) 22, Alkaline Phosphatase 111, Total Protein 6.0L, Albumin 2.3L Microbiology 11/06/22 Urine Culture - Final, Complete NO GROWTH 11/06/22 Blood Culture - Preliminary, Resulted No growth Home Meds Active Mucinex (Guaifenesin) 600 Mg Tab.er.12h 600 Mg PO BID Albuterol Sulfate 2.5 Mg/3 Ml (0.083 %) Vial.neb 2.5 Mg INH RTQ6HR Nicoderm Cq (Nicotine) 21 Mg/24 Hour Patch.td24 21 Mg TD DAILY@0900 Children's Aspirin (Aspirin) 81 Mg Tab.chew 81 Mg PO DAILY Assessment/Pt Instructions [facility] rounds 6 Discharge Planning: <30 minutes discharge planning Discharge Instructions Discharge Diet: No Restrictions Discharge Physical Examination Vital Signs Vital Signs Date Time Temp Pulse Resp B/P (MAP) Pulse Ox O2 Delivery O2 Flow Rate FiO2 11/12/22 12:26 101 11/12/22 11:27 36.4 20 132/65 (87) 92 Nasal Cannula 5.00 11/09/22 15:00 97 General Appearance: No Apparent Distress, WD/WN, Chronically ill Respiratory: Lungs Clear, Normal Breath Sounds Cardiovascular: Regular Rate, Rhythm Neurologic/Psychiatric: Alert, Oriented x3 Allergies: Coded Allergies: No Known Drug Allergies (Unverified , 06/08/19) Discharge Summary Date of Admission Nov 07, 2022 at 11:10 Date of Discharge Discharge Date: Nov 12, 2022 Discharge Diagnosis Supportive care Awaiting jail placement DEVONTE RUTHERFORD DO Nov 12, 2022 13:03
--- NOTE | 2022-11-12 13:03 | Discharge Inst-Skilled Nursing ---
Discharge Inst-Skilled NF Reconcile Patient Problems Problems Reviewed?: Yes Chief Complaint CC: community acquired pneumonia. Patient Instructions Patient Problems: Debility Goal: Return to independence Consult/Follow Up/Orders Skilled NF Admit to: [facility] Certification (SNF) I certify that SNF services are required to be given on an inpatient basis because of the above named patient's need for longterm care on a continuing basis for the conditions(s) for which he/she was receiving inpatient hospital services prior to his/her transfer to the SNF. Long-Term Facility Order: Nursing Services, [facility]-Evaluate & Treat, Physical Therapy-Evaluate & Treat Oxygen Delivery Method: Nasal Cannula Discharge Diet: No Restrictions Resuscitation Status: Do Not Resuscitate New & Resume Previous Orders New Medications: Albuterol Sulfate (Albuterol Sulfate) 2.5 Mg/3 Ml (0.083 %) Vial.neb 2.5 MG INH RTQ6HR, #60 INHALER Aspirin (Children's Aspirin) 81 Mg Tab.chew 81 MG PO DAILY, #30 TAB Guaifenesin (Mucinex) 600 Mg Tab.er.12h 600 MG PO BID, #60 TAB Nicotine (Nicoderm Cq) 21 Mg/24 Hour Patch.td24 21 MG TD DAILY@0900, #30 PATCH Shirley Prado Nov 12, 2022 13:03 SHIRLEY PRADO DO Nov 12, 2022 13:03
[2022-11-12 16:31] VITALS: BP 119/74
[2022-11-12 17:26] VITALS: BP 119/74
--- NOTE | 2022-11-15 14:21 | Physician Query Clarification ---
PQ-CHF Specificity Admission Date: Nov 07, 2022 at 11:10 Discharge Date: Nov 12, 2022 at 17:28 , The medical record reflects the following clinical scenario: History/Risk Factors: pneumonia, acute CHF Clinical Findings: EF 50-55%, Grade 1 diastolic dysfunction Treatment: IVP Furosemide Question: Can you further specify the acuity &/or type of CHF per the clinical indicators above? Please document a response in the Progress Notes or Discharge Summary. 1. Acuity: Acute, Chronic or Acute on Chronic 2. Type: Systolic, Diastolic or Systolic & Diastolic 3. Unspecified: CHF cannot be further specified regarding type or acuity 4. Other, with explanation of clinical findings 5. Clinically undetermined, no explanation for clinical findings PHYSICIAN RESPONSE Acuity: CHF cannot be further specified Type: CHF cannot be further specified In responding to this query, please exercise your independent professional judgment. The purpose of this communication is to more accurately reflect the c omplexity of your patients condition. The fact that a question is asked does not imply that any particular answer is desired or expected. Thank you for your timely response to this clarification. Requestors name: Roya THIS PHYSICIAN QUERY FORM IS A PERMANENT PART OF THE MEDICAL RECORD ROYA FLORES Nov 15, 2022 14:21 KARINA SNELL MD Nov 16, 2022 15:14
--- NOTE | 2022-11-15 14:28 | Physician Query Clarification ---
PQ-Uncertain Diagnosis Admission/Discharge Admission Date: Nov 07, 2022 at 11:10 Discharge Date: Nov 12, 2022 at 17:28 Dr. Prado, The medical record reflects the following clinical scenario: History/Risk Factors: pneumonia, heat exhaustion, metabolic encephalopathy, Acute CHF Clinical Findings: Lactic acid 1.44, WBC 20.1, P 104, R 34 Treatment: IV Pipercillin Question: Is sepsis a clinically valid diagnosis? Sepsis was documented in the 11/09 PN with no further documentation in the medical record. Please document a response in Progress Note or Discharge Summary. 1. Yes, clinically valid, condition resolved. 2. No, condition ruled out. 3. Other, with explanation of clinical findings. 4. Undetermined, no explanation for clinical findings. PHYSICIAN RESPONSE Diagnosis clinically valid: Yes, Conditon resolved In responding to this query, please exercise your independent professional judgment. The purpose of this communication is to more accurately reflect the complexity of your patients condition. The fact that a question is asked does not imply that any particular answer is desired or expected. Thank you for your timely response to this clarification. Requestors name: Roya THIS PHYSICIAN QUERY FORM IS A PERMANENT PART OF THE MEDICAL RECORD ROYA FLORES Nov 15, 2022 14:28 DEVONTE PRADO DO Nov 15, 2022 19:18
== END 2022-11-12 17:28 | DRG 871 ==
LOC: EDUNIT# 16:14 → ER FS 16:16 → INTOOBSV 19:50 → 4TH 19:50 → OBSVTOIN 11-07 11:10 → 4TH 11-10 08:45
PROVIDERS: ADMIT Internal Medicine; ATTEND Internal Medicine
DX: A41.9 Sepsis, unspecified organism (principal); G93.41 Metabolic encephalopathy; J18.9 Pneumonia, unspecified organism; I21.A1 Myocardial infarction type 2; E46 Unspecified protein-calorie malnutrition; I11.0 Hypertensive heart disease with heart failure; I50.9 Heart failure, unspecified; E86.0 Dehydration; Z66 Do not resuscitate; Z20.822 Contact with and (suspected) exposure to COVID-19; I25.10 Atherosclerotic heart disease of native coronary artery without angina pectoris; J44.9 Chronic obstructive pulmonary disease, unspecified; I73.9 Peripheral vascular disease, unspecified; F17.210 Nicotine dependence, cigarettes, uncomplicated; I25.2 Old myocardial infarction; Z91.199 Patient's noncompliance with other medical treatment and regimen due to unspecified reason; Z68.32 Body mass index [BMI] 32.0-32.9, adult; Z89.511 Acquired absence of right leg below knee; Z79.2 Long term (current) use of antibiotics; Z79.899 Other long term (current) drug therapy; X30.XXXA Exposure to excessive natural heat, initial encounter
CPT/HCPCS: 36415; 36600; 51702; 71045; 80053; 80061; 80306; 81000; 82550; 82805; 83605; 83735; 83880; 84484; 85007; 85025; 85027; 85610; 85730; 87040; 87088; 87636; 93005; 93306; 94640; 94664; 94760; 96365; 96375; G0378